=== PATIENT | male | born 1950 | race Caucasian/White ===

== ENCOUNTER 2017-12-19 20:32 | Emergency (ER) | payer MEDICARE ==
--- NOTE | 2017-12-19 20:58 | Emergency Department Record ---
History of Present Illness - General Chief Complaint: Fall Injury Stated Complaint: INJURY TO LEFT HAND Time Seen by Provider: 12/19/17 20:53 Source: Patient Mode of Arrival: Ambulatory Limitations: No limitations - History of Present Illness Initial Comments: 67 yo male presents to ED for evaluation of injury to the left hand 4 days ago. Patient reports pain and swelling to the hand, reduced ROM of the fingers due to pain. Patient denies other injury on examination. Patient reports that he has morphine pump and oxycodone for his pain symptoms. MD Complaint: Fall Onset/Timin -: Days(s) Fall From: Down stairs (#) When Fall Occurred: # Days MEDICAL TRANSCRIPTION RADIOLOGY Fall Witnessed: No Place Fall Occurred: Home Loss of Consciousness: None Prolonged Down Time?: No Symptoms Prior to Fall: None Location - Extremities: Left: Hand Severity: Moderate Severity scale (1-10): 6 Quality: Aching Associated Symptoms: Denies - Ivan Coma Scale Eye Response: (4) Open spontaneously Motor Response: (6) Obeys commands Verbal Response: (5) Oriented Ivan Total: 15 - Related Data Home Medications Medication Instructions Recorded Confirmed Last Taken Amitriptyline HCl [Elavil] 100 mg PO QHS 12/19/17 12/19/17 Unknown Aspirin Chewable 81 mg PO QHS 12/19/17 12/19/17 Unknown Atorvastatin Calcium [Lipitor] 40 mg PO QHS 12/19/17 12/19/17 Unknown Cyclobenzaprine HCl [Flexeril] 10 mg PO TID 12/19/17 12/19/17 Unknown Digoxin [Lanoxin] 125 mcg PO QHS 12/19/17 12/19/17 Unknown Furosemide [Lasix] 40 mg PO DAILY 12/19/17 12/19/17 Unknown Lisinopril 20 mg PO QHS 12/19/17 12/19/17 Unknown Metoprolol Succinate [Toprol Xl] 100 mg PO QHS 12/19/17 12/19/17 Unknown Spironolactone [Aldactone] 25 mg PO QHS 12/19/17 12/19/17 Unknown Allergies Allergy/AdvReac Type Severity Reaction Status Date / Time No Known Drug Allergies Allergy Verified 08/01/14 17:45 Travel Screening - Travel/Exposure Within Last 30 Days Have you traveled within the last 30 days?: No - Travel Symptoms Symptom Screening: None Review of Systems Constitutional: Denies: Chills, Fever, Malaise, Night sweats Eyes: Denies: Eye discharge, Eye pain ENT: Denies: Congestion, Ear pain, Epistaxis Respiratory: Denies: Cough, Dyspnea Cardiovascular: Denies: Chest pain, Dyspnea on exertion Endocrine: Denies: Fatigue, Heat or cold intolerance Gastrointestinal: Denies: Abdominal pain, Nausea, Vomiting Genitourinary: Denies: Incontinence, Retention Musculoskeletal: Reports: Arthralgia (left hand). Denies: Back pain, Gout, Joint swelling Skin: Denies: Bruising, Change in color Neurological: Denies: Abnormal gait, Confusion, Headache, Seizure Psychiatric: Denies: Anxiety Hematological/Lymphatic: Denies: Anemia, Blood Clots Past Medical History - SOCIAL HISTORY Smoking Status: Current every day smoker - RESPIRATORY Hx Respiratory Disorders: Yes Hx Bronchitis: Yes Hx COPD: Yes Hx Dyspnea: Yes Hx Sleep Apnea: Yes - CARDIOVASCULAR Hx Cardio Disorders: Yes Hx CHF: Yes Hx Hypertension: Yes Comment:: high cholesterol - NEURO Hx Neuro Disorders: No - GI Hx GI Disorders: Yes Comment:: constipation-pain medication related - Hx Genitourinary Disorders: No - ENDOCRINE Hx Endocrine Disorders: No Hx Diabetes: No Hx Thyroid Disease: No - MUSCULOSKELETAL Hx Musculoskeletal Disorders: Yes Hx Arthritis: Yes - PSYCH Hx Psych Problems: Yes Hx Anxiety: Yes Hx Depression: Yes - HEMATOLOGY/ONCOLOGY Hx Hematology/Oncology Disorders: Yes Hx Blood Disorders: Yes Family Medical History Any Significant Family History?: Yes Hx Alcohol Use: Mother Hx Diabetes: Father Physical Exam - General General Appearance: Alert, Oriented x3 - Head Head exam: Atraumatic, Normocephalic, Normal inspection Head exam detail: negative: Abrasion, Contusion, Law's sign, General tenderness, Hematoma, Laceration - Eye Eye exam: Normal appearance. negative: Conjunctival injection, Periorbital swelling, Periorbital tenderness, Scleral icterus - ENT Ear exam: negative: Auricular hematoma, Auricular trauma Nasal Exam: negative: Active bleeding, Discharge, Dried blood, Foreign body Mouth exam: negative: Drooling, Laceration, Muffled voice, Tongue elevation - Neck Neck exam: Normal inspection. negative: Meningismus, Tenderness - Respiratory Respiratory exam: Decreased breath sounds. negative: Rales, Respiratory distress, Rhonchi, Stridor - Cardiovascular Cardiovascular Exam: Regular rate, Normal rhythm, Normal heart sounds - GI/Abdominal GI/Abdominal exam: Soft. negative: Rebound, Rigid, Tenderness - Rectal Rectal exam: Deferred - exam: Deferred - Extremities Extremities exam: Tenderness, Other (TTP and STS over the left hand dorsally, limited extension of the 4th/5th digits due to pain/swelling). negative: Calf tenderness, Pedal edema - Back Back exam: Denies: CVA tenderness (R), CVA tenderness (L) - Neurological Neurological exam: Alert, Normal gait, Oriented X3 - Psychiatric Psychiatric exam: Normal affect, Normal mood - Skin Skin exam: Normal color. negative: Abrasion Type of lesion: negative: abrasion Course Vital Signs 12/19/17 20:46 Temperature 99.2 F Pulse Rate [ 103 H Pulse Ox Probe] Respiratory 16 Rate Blood Pressure 130/70 [Left Arm] Pulse Ox 92 L - Reevaluation(s) Reevaluation #1: 12/19/17 21:14 Left hand: Comminuted, non-displaced fracture of the proximal phalanx of the 5th digit Patient was updated on all results, will refer to Dr. Clayton for further evaluation. Disposition Disposition: Discharge Clinical Impression: Proximal phalanx fracture of finger Qualifiers: Encounter type: initial encounter Finger: ring finger Fracture type: closed Fracture alignment: nondisplaced Laterality: left Qualified Code(s): S62.645A - Nondisplaced fracture of proximal phalanx of left ring finger, initial encounter for closed fracture Disposition: Home, Self-Care Condition: (2) Stable Instructions: Finger Fracture (ED) Additional Instructions: Return to ED if your symptoms worsen or if you have any concerns. Follow-up with Dr. Clayton in 3-5 days as directed. Referrals: SARAH CLAYTON [DOCTOR OF OSTEOPATH] - [facility] [Provider Group] Forms: Patient Portal Access Time of Disposition: 21:18 Quality - Quality Measures Quality Measures: N/A - Blood Pressure Screening Does Patient Have Any of the Following: No Blood Pressure Classification: Normal BP Reading Systolic Measurement: 112 Diastolic Measurement: 66 Screening for High Blood Pressure: < Normal BP, F/U Not Required > [G8783]
--- NOTE | 2017-12-20 11:03 | RADIOLOGY REPORT ---
EXAM: LEFT HAND HISTORY: INJURY. TECHNIQUE: Three views of the left hand were performed. FINDINGS: There is a nondisplaced comminuted fracture deformity of the fifth proximal phalanx. The remainder of the osseous structures are intact. IMPRESSION: COMMINUTED NONDISPLACED FRACTURE DEFORMITY OF THE FIFTH PROXIMAL PHALANX. JOB NUMBER: [id number] MTDD
== END 2017-12-19 21:41 | disposition home or self-care (01) ==
LOC: ER 20:32
DX: S62.645A Nondisplaced fracture of proximal phalanx of left ring finger, initial encounter for closed fracture (principal); I10 Essential (primary) hypertension; J44.9 Chronic obstructive pulmonary disease, unspecified; W10.9XXA Fall (on) (from) unspecified stairs and steps, initial encounter; F17.210 Nicotine dependence, cigarettes, uncomplicated; Y92.009 Unspecified place in unspecified non-institutional (private) residence as the place of occurrence of the external cause
CPT/HCPCS: 99283

== ENCOUNTER 2018-04-26 02:02 | Emergency (ER) | payer MEDICARE ==
--- NOTE | 2018-04-26 02:29 | Emergency Department Record ---
History of Present Illness - General Chief Complaint: Wound, check Stated Complaint: POST OP PAIN Time Seen by Provider: 04/26/18 02:11 Source: Patient Mode of arrival: Ambulatory Limitations: No limitations - History of Present Illness Initial Comments: 68 yo male presents to ED for evaluation of post-operative pain symptoms following replacement of a pain pump approximately 8 hours ago. Patient reports that he has been taking Oxycodone 20 mg 1 hours ago, however he reports that he takes these "all the time and they are not helping". Patient denies fevers, chills, or recent illness following his pain pump replacement. Patient reports that his abdomen is too painful to wear his abdominal binder. Patient reports that his pain symptoms are severe "because I spent so much time in the car, we got lost, and the roads are terrible". Patient did not call his surgeon regarding his pain symptoms. MD Complaint: Wound re-check Onset/Timin -: Days(s) Returns Today for: Persistent/worsening pain related to initial visit, Wound recheck Symptoms Since Prior Visit: No new symptoms Associated Symptoms: None Treatments Prior to Arrival: Other - Related Data Previous Rx's Medication Instructions Recorded Cephalexin [Keflex] 500 mg PO TID #21 cap 04/26/18 Allergies Allergy/AdvReac Type Severity Reaction Status Date / Time No Known Drug Allergies Allergy Verified 08/01/14 17:45 Travel Screening - Travel/Exposure Within Last 30 Days Have you traveled within the last 30 days?: No - Travel/Exposure Within Last Year Have you traveled outside the [place] in the last year?: No - Additonal Travel Details Have you been exposed to anyone with a communicable illness?: No - Travel Symptoms Symptom Screening: None Review of Systems Constitutional: Denies: Chills, Fever, Malaise, Night sweats Eyes: Denies: Eye discharge, Eye pain ENT: Denies: Congestion, Ear pain, Epistaxis Respiratory: Denies: Cough, Dyspnea Cardiovascular: Denies: Chest pain, Dyspnea on exertion Endocrine: Denies: Fatigue, Heat or cold intolerance Gastrointestinal: Reports: Abdominal pain (Post-op pain to the left lower quadrant on examination). Denies: Nausea, Vomiting Genitourinary: Denies: Incontinence, Retention Musculoskeletal: Denies: Arthralgia, Back pain, Gout, Joint swelling Skin: Denies: Bruising, Change in color Neurological: Denies: Abnormal gait, Confusion, Headache, Seizure Psychiatric: Denies: Anxiety Hematological/Lymphatic: Denies: Anemia, Blood Clots Past Medical History - SOCIAL HISTORY Smoking Status: Current every day smoker Alcohol Use: None Drug Use: None - RESPIRATORY Hx Respiratory Disorders: Yes Hx Bronchitis: Yes Hx COPD: Yes Hx Dyspnea: Yes Hx Sleep Apnea: Yes - CARDIOVASCULAR Hx Cardio Disorders: Yes Hx CHF: Yes Hx Hypertension: Yes Comment:: high cholesterol - NEURO Hx Neuro Disorders: No - GI Hx GI Disorders: Yes Comment:: constipation-pain medication related - Hx Genitourinary Disorders: No - ENDOCRINE Hx Endocrine Disorders: No Hx Diabetes: No Hx Thyroid Disease: No - MUSCULOSKELETAL Hx Musculoskeletal Disorders: Yes Hx Arthritis: Yes - PSYCH Hx Psych Problems: Yes Hx Anxiety: Yes Hx Depression: Yes - HEMATOLOGY/ONCOLOGY Hx Hematology/Oncology Disorders: Yes Hx Blood Disorders: Yes Family Medical History Any Significant Family History?: No Hx Alcohol Use: Mother Hx Diabetes: Father Physical Exam - General General Appearance: Alert, Oriented x3, Cooperative, Moderate distress (due to his pain symptoms) Limitations: No limitations - Head Head exam: Atraumatic, Normocephalic, Normal inspection Head exam detail: negative: Abrasion, Contusion, Law's sign, General tenderness, Hematoma, Laceration - Eye Eye exam: Normal appearance. negative: Conjunctival injection, Periorbital swelling, Periorbital tenderness, Scleral icterus - ENT Ear exam: negative: Auricular hematoma, Auricular trauma Nasal Exam: negative: Active bleeding, Discharge, Dried blood, Foreign body Mouth exam: negative: Drooling, Laceration, Muffled voice, Tongue elevation - Neck Neck exam: Normal inspection. negative: Meningismus, Tenderness - Respiratory Respiratory exam: Normal lung sounds bilaterally. negative: Rales, Respiratory distress, Rhonchi, Stridor - Cardiovascular Cardiovascular Exam: Regular rate, Normal rhythm, Normal heart sounds - GI/Abdominal GI/Abdominal exam: Soft, Tenderness (TTP surrounding his wound site in the LLQ region of the abdomen with very light palpation, no erythema or drainage from the wound site.). negative: Rebound, Rigid - Rectal Rectal exam: Deferred - exam: Deferred - Extremities Extremities exam: negative: Pedal edema, Tenderness - Back Back exam: Denies: CVA tenderness (R), CVA tenderness (L) - Neurological Neurological exam: Alert, Normal gait, Oriented X3 - Psychiatric Psychiatric exam: Normal affect, Normal mood - Skin Skin exam: Normal color. negative: Abrasion Type of lesion: negative: abrasion Course Vital Signs 04/26/18 02:12 Temperature 99.3 F Pulse Rate [ 86 Pulse Ox Probe] Respiratory 20 Rate Blood Pressure 114/60 [Left Arm] Pulse Ox 93 L - Reevaluation(s) Reevaluation #1: 04/26/18 02:28 Patient's on-call pain provider was contacted for further recommendations. 04/26/18 02:34 IV and basic laboratory studies ordered, CT Abdomen and Pelvis ordered for further evaluation of the patient's post-operative site. Analgesia including Toradol and Ofirmev ordered as well. 04/26/18 02:46 Case was discussed with Thais Steiner on-call HOUSEKEEPING SUPERVISOR, reports that the patient underwent a revision of his pain pump which are usually well tolerated. She has no further recommendations at this time regarding his sever pain symptoms. Reevaluation #2: 04/26/18 03:19 Laboratory studies were reviewed: WBC 12.5 Hgb 17.8/HCT 54.8 CO2 34 (c/w chronic retainer). UA pending Patient has ambulated to the bathroom to provide urine sample, and is going for imaging at this time. Reevaluation #3: 04/26/18 03:46 UA reviewed: >50 WBCs 3+ Bacteria Rocephin ordered to infuse. Patient is back from CT and reports improvement in his pain symptoms. Reevaluation #4: 04/26/18 04:27 CT Abdomen and Pelvis: S/P cholecystectomy, CBD 1.4 with pneumobilia likely related to prior sphincterotomy procedure LLQ abdominal wall subcutaneous battery pack with marginal gas/edema suggesting recent post-surgical change Bilateral renal cysts. Cardiomegaly Small left pleural effusion Right lower lobe bronchitis with mucus plugging Patient was updated on all results, patient is sleeping comfortably on re- examination and appears stable for discharge at this time. All questions were answered at the time of discharge. Medical Decision Making - Lab Data Result diagrams: 04/26/18 02:35 04/26/18 02:35 Disposition Disposition: Discharge Clinical Impression: Post-operative pain UTI (urinary tract infection) Qualifiers: Urinary tract infection type: acute cystitis Hematuria presence: without hematuria Qualified Code(s): N30.00 - Acute cystitis without hematuria Disposition: Home, Self-Care Condition: (2) Stable Additional Instructions: Return to ED if your symptoms worsen or if you have any concerns. Continue Oxycodone as directed. Keflex as directed. Call Dr. Washington tomorrow morning for further recommendations. Prescriptions: Cephalexin [Keflex] 500 mg PO TID #21 cap Forms: Patient Portal Access Time of Disposition: 04:33 Quality - Quality Measures Quality Measures: N/A - Blood Pressure Screening Does Patient Have Any of the Following: No Blood Pressure Classification: Normal BP Reading Systolic Measurement: 114 Diastolic Measurement: 60 Screening for High Blood Pressure: < Normal BP, F/U Not Required > [G8783]
[2018-04-26] MEDS ORDERED: ACETAMINOPHEN 1,000 MG/100 ML BTL IVPB ONE (02:33)
[2018-04-26] MEDS ORDERED: KETOROLAC 30 MG/ML VIAL IVP ONE (02:33)
[2018-04-26] MEDS ORDERED: 0.9 % SODIUM CHLORIDE 1000ML 1,000 ML IV SCH (02:45)
[2018-04-26 03:01] LABS: BASO % 0.4 % (0-6); HEMATOCRIT 54.8 % (42.0-52.0); HEMOGLOBIN 17.8 gm/dl (14.0-18.0); MEAN CELL VOLUME 101.1 fl (81-97); MEAN CORPUSCULAR HEMOGLOBIN 32.8 pg (27-33); MEAN CORPUSCULAR HGB CONC 32.5 g/dl (32-36); MEAN PLATELET VOLUME 9.9 fl (7.4-10.4); MONO % 6.6 % (0-9); PLATELET COUNT 183 K/uL (130-400); RED BLOOD COUNT 5.42 M/uL (4.40-5.70); WHITE BLOOD COUNT W/O DIFF 12.5 K/uL (4.2-12.2)
[2018-04-26 03:07] LABS: BLOOD UREA NITROGEN 9 mg/dL (8-23); EST GLOMERULAR FILTRATION RATE > 60 mL/min
[2018-04-26 03:08] LABS: TOTAL PROTEIN 6.4 g/dL (6.6-8.7)
[2018-04-26 03:10] LABS: GLUCOSE,RANDOM 135 mg/dL (74-109)
[2018-04-26 03:12] LABS: ALT/SGPT 8 U/L (<41); AST/SGOT 12 U/L (10.0-50.0)
[2018-04-26 03:13] LABS: ALB/GLOB RATIO 1.6 (1.1-1.8); ALBUMIN 3.9 g/dL (4.0-5.0); ALKALINE PHOSPHATASE 119 U/L (40-129)
[2018-04-26 03:27] LABS: URINE APPEARANCE CLEAR; URINE BILIRUBIN NEGATIVE (NEGATIVE); URINE BLOOD NEGATIVE (NEGATIVE); URINE COLOR YELLOW; URINE GLUCOSE (UA) NEGATIVE (NEGATIVE); URINE KETONE NEGATIVE (NEGATIVE); URINE LEUKOCYTE ESTERASE MODERATE (NEGATIVE); URINE NITRITE NEGATIVE (NEGATIVE); URINE PROTEIN NEGATIVE (NEGATIVE)
[2018-04-26 03:34] LABS: URINE EPITHELIAL CELLS NONE SEEN (FEW); URINE RBC NONE SEEN (NONE SEEN); URINE WBC >50 (0-2/hpf)
[2018-04-26 03:35] LABS: URINE BACTERIA 3+
[2018-04-26] MEDS ORDERED: CEFTRIAXONE SODIUM 1 GM in 0.9 % SODIUM CHLORIDE 100ML 100 ML IVPB ONE (03:47)
--- NOTE | 2018-04-27 12:41 | CT SCAN REPORT ---
DATE: 04/26/2018. EXAM: CT OF THE ABDOMEN AND PELVIS. HISTORY: Pain near surgical incision, abdominal swelling. TECHNIQUE: CT of the abdomen and pelvis performed following intravenous contrast administration. A total of 100 mL of Omnipaque 300 contrast used for this examination. COMPARISON: CT of the pelvis dated 08/24/2014. FINDINGS: There is a small left pleural effusion. Smooth bronchial wall thickening and mucus plugging in the right lower lung. Minimal atelectatic change in the left lung base. No hepatic mass. The common bile duct is dilated measuring 1.5 cm, and there is gas in the intra- and extra-hepatic bile ducts consistent with pneumobilia. The gallbladder is surgically absent. No pancreatic mass or inflammatory change. No adrenal lesion. There is no splenic mass. A small accessory spleen is present. There is bilateral renal function. There are bilateral renal cysts. No solid mass or hydronephrosis. There are nonobstructing intrarenal calculi bilaterally, left greater than right. No perinephric mass or fluid collection. There is no aortic aneurysm. No enlarged periaortic lymph nodes. No dilated bowel loops. The appendix is unremarkable. Pneumatosis intestinalis is present in the cecum best identified on axial images 83 through 96 of series 3. No gross bladder abnormality. Subcutaneous battery pack is identified in the anterior left abdominal wall with some marginal gas bubbles. No pelvic mass, abscess, or adenopathy. No free air or free fluid identified. Postoperative changes are seen in the lower lumbar spine. No lytic or blastic bone lesion. IMPRESSION: 1. LEFT LOWER ABDOMINAL WALL SUBCUTANEOUS BATTERY PACK WITH MARGINAL GAS/EDEMA RELATED TO RECENT POSTSURGICAL CHANGES. SMALL CATHETER EXTENDING FROM THE BATTERY PACK INTO THE SPINAL CANAL EXTENDING TO APPROXIMATELY THE T10-T11 LEVEL. 2. STATUS POST CHOLECYSTECTOMY. COMMON BILE DUCT DILATATION AND PNEUMOBILIA LIKELY RELATED TO PREVIOUS SPHINCTEROTOMY. PLEASE CORRELATE CLINICALLY. 3. BILATERAL RENAL CYSTS. 4. NONOBSTRUCTIVE BILATERAL RENAL CALCULI WITH NO URETERAL STONES SEEN. 5. SMALL LEFT PLEURAL EFFUSION. 6. RIGHT LOWER LOBE BRONCHITIS AND MUCUS PLUGGING. 7. MOBILE CECUM DEMONSTRATING PNEUMATOSIS COLI. APPENDIX UNREMARKABLE. JOB NUMBER: [id number] [facility]
== END 2018-04-26 05:02 | disposition home or self-care (01) ==
LOC: ER 02:02
DX: G89.28 Other chronic postprocedural pain (principal); R19.04 Left lower quadrant abdominal swelling, mass and lump; N30.00 Acute cystitis without hematuria; M54.9 Dorsalgia, unspecified; I10 Essential (primary) hypertension; J44.9 Chronic obstructive pulmonary disease, unspecified; F17.210 Nicotine dependence, cigarettes, uncomplicated
CPT/HCPCS: 99284 ×2; 96365; 96366; 96375; 85025; 80053; 81001; 74177; Q9967; J1885; J7030

== ENCOUNTER 2018-04-27 02:36 | Emergency (ER) | payer MEDICARE ==
[2018-04-27] MEDS ORDERED: KETOROLAC 30 MG/ML VIAL IVP ONE (02:48)
[2018-04-27] MEDS ORDERED: ACETAMINOPHEN 1,000 MG/100 ML BTL IVPB ONE (02:48)
--- NOTE | 2018-04-27 02:54 | Emergency Department Record ---
History of Present Illness - General Chief Complaint: Fever Stated Complaint: FEVER Time Seen by Provider: 04/27/18 02:39 Source: Patient Mode of Arrival: Ambulatory Limitations: No limitations - History of Present Illness Initial Comments: 68 yo male presents to ED for evaluation of fever symptoms following replacement of an abdominal subcutaneous pain pump placed approximately 32 hours ago. Patient was seen last night for post-op pain symptoms, was diagnosed with UTI and started on Rocephin. 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 Patient reports mild cough symptoms, denies drainage from his wound site. MD Complaint: Fever Onset/Timin -: Awoke with symptoms Temperature Source: Oral Context: Recent procedure Associated Symptoms: Cough, Myalgias Treatments Prior to Arrival: None - Related Data Previous Rx's Medication Instructions Recorded Cephalexin [Keflex] 500 mg PO TID #21 cap 04/26/18 Allergies Allergy/AdvReac Type Severity Reaction Status Date / Time No Known Drug Allergies Allergy Verified 08/01/14 17:45 Travel Screening - Travel/Exposure Within Last 30 Days Have you traveled within the last 30 days?: No - Travel/Exposure Within Last Year Have you traveled outside the [place] in the last year?: No - Additonal Travel Details Have you been exposed to anyone with a communicable illness?: No - Travel Symptoms Symptom Screening: None Review of Systems Constitutional: Reports: Chills, Fever. Denies: Malaise, Night sweats Eyes: Denies: Eye discharge, Eye pain ENT: Denies: Congestion, Ear pain, Epistaxis Respiratory: Denies: Cough, Dyspnea Cardiovascular: Denies: Chest pain, Dyspnea on exertion Endocrine: Denies: Fatigue, Heat or cold intolerance Gastrointestinal: Denies: Abdominal pain, Nausea, Vomiting Genitourinary: Denies: Incontinence, Retention Musculoskeletal: Denies: Arthralgia, Back pain Skin: Denies: Bruising, Change in color Neurological: Denies: Abnormal gait, Confusion, Headache, Seizure Psychiatric: Denies: Anxiety Hematological/Lymphatic: Denies: Anemia, Blood Clots Past Medical History - SOCIAL HISTORY Smoking Status: Current every day smoker - RESPIRATORY Hx Respiratory Disorders: Yes Hx Bronchitis: Yes Hx COPD: Yes Hx Dyspnea: Yes Hx Sleep Apnea: Yes - CARDIOVASCULAR Hx Cardio Disorders: Yes Hx CHF: Yes Hx Hypertension: Yes Comment:: high cholesterol - NEURO Hx Neuro Disorders: No - GI Hx GI Disorders: Yes Comment:: constipation-pain medication related - Hx Genitourinary Disorders: No - ENDOCRINE Hx Endocrine Disorders: No Hx Diabetes: No Hx Thyroid Disease: No - MUSCULOSKELETAL Hx Musculoskeletal Disorders: Yes Hx Arthritis: Yes - PSYCH Hx Psych Problems: Yes Hx Anxiety: Yes Hx Depression: Yes - HEMATOLOGY/ONCOLOGY Hx Hematology/Oncology Disorders: Yes Hx Blood Disorders: Yes Family Medical History Any Significant Family History?: Yes Hx Alcohol Use: Mother Hx Diabetes: Father Physical Exam - General General Appearance: Alert, Oriented x3, Cooperative, Moderate distress Limitations: No limitations - Head Head exam: Atraumatic, Normocephalic, Normal inspection Head exam detail: negative: Abrasion, Contusion, Law's sign, General tenderness, Hematoma, Laceration - Eye Eye exam: Normal appearance. negative: Conjunctival injection, Periorbital swelling, Periorbital tenderness, Scleral icterus - ENT Ear exam: negative: Auricular hematoma, Auricular trauma Nasal Exam: negative: Active bleeding, Discharge, Dried blood, Foreign body Mouth exam: negative: Drooling, Laceration, Muffled voice, Tongue elevation - Neck Neck exam: Normal inspection. negative: Meningismus, Tenderness - Respiratory Respiratory exam: Respiratory distress (Tachypnic on examination). negative: Rales, Rhonchi, Stridor - Cardiovascular Cardiovascular Exam: Normal rhythm, Normal heart sounds, Tachycardia - GI/Abdominal GI/Abdominal exam: Soft, Tenderness. negative: Rebound, Rigid - Rectal Rectal exam: Deferred - exam: Deferred - Extremities Extremities exam: Normal inspection. negative: Calf tenderness, Pedal edema, Tenderness - Back Back exam: Denies: CVA tenderness (R), CVA tenderness (L) - Neurological Neurological exam: Alert, Normal gait, Oriented X3 - Psychiatric Psychiatric exam: Normal affect, Normal mood - Skin Skin exam: Normal color. negative: Abrasion Type of lesion: negative: abrasion Course Vital Signs 04/27/18 02:46 Temperature 102.2 F H Pulse Rate [ 103 H Pulse Ox Probe] Respiratory 24 Rate Blood Pressure 133/66 [Left Arm] Pulse Ox 91 L - Reevaluation(s) Reevaluation #1: 04/27/18 02:56 Patient was seen and examined, initial labs ordered including blood cultures. Ofirmev and Toradol given for fever symptoms. CT Abdomen and Pelvis performed 8/4/18 was reviewed: S/P cholecystectomy. CBD 1.4 cm with evidence for pneumobilia likely related to previous sphincterotomy procedure. Left lower abdominal wall subcutaneous battery pack with mild gas/edema related to recent post-surgical change. Bilateral renal cysts RLL bronchitis Cardiomegaly with small pleural effusion Mobile cecum measures 9.2 cm in diameter demonstrates pneumoatosis coli. Appendix appears normal. Reevaluation #2: 04/27/18 03:06 Labs/blood cultures obtained Zosyn 4.5 grams and Vancomycin 1 gram ordered to infuse. Reevaluation #3: 04/27/18 03:30 Laboratory studies were reviewed: WBC 14.3 (89% Neutrophils) LA 1.5 CO2 34 Patient is going to radiology for CXR currently. Awaiting call back from the patient's on-call provider for Dr. Washington. Reevaluation #4: 04/27/18 03:45 On-call provider re-paged. Reevaluation #5: 04/27/18 03:55 On-call provider (Thais Selby) returned call, will find out from Dr. Washington to determine which facility the patient should be transferred to. 04/27/18 03:58 CXR: ? retrocardiac infiltrate present 04/27/18 04:10 Vancomycin is infusing, patient and his were updated on all results thus far and the plan for transfer. Repeat Temp is 98.9. 04/27/18 04:26 UA micro resulted: 0-2 WBCs Bacteria: Few Significantly improved from yesterday's UA. Awaiting return call for transfer. 04/27/18 04:52 Call returned from on-call provider, will initiate transfer to [facility]. Case was discussed with one-call provider (Sosa), will attempt to reach Dr. Washington for admitting vs. inpatient provider vs. ER-ER. Vancomycin is almost completed. 04/27/18 05:20 Vancomycin has completed infusing. Patient and his SO updated on the status of pending transfer. Will continue to monitor closely. 04/27/18 05:27 [place] [facility] [place] at this time. Medical Decision Making - Lab Data Result diagrams: 04/27/18 03:03 04/27/18 03:03 Critical Care Time Critical Care Time: Yes Total Critical Care Time: 90 Critical Care Time: Diagnosis and treatment for sepsis, broad spectrum antibiotic coverage/IVFs, review of previous records, consultation with the patient's surgical training specialist converter operator and initiation of transfer to surgical hospital. Disposition Disposition: Transfer Clinical Impression: Postoperative fever UTI (urinary tract infection) Qualifiers: Urinary tract infection type: acute cystitis Hematuria presence: without hematuria Qualified Code(s): N30.00 - Acute cystitis without hematuria COPD (chronic obstructive pulmonary disease) Qualifiers: COPD type: unspecified COPD Qualified Code(s): J44.9 - Chronic obstructive pulmonary disease, unspecified Disposition: Acute Care Hospital Transfer Transfer To: [facility] Reason For Transfer: Post-op fever Accepting Physician: Aleksander Time Discussed w/Accepting Physician: 05:32 Condition: (2) Stable Forms: Patient Portal Access Time of Disposition: :32 Quality - Quality Measures Quality Measures: N/A - Blood Pressure Screening Does Patient Have Any of the Following: No Blood Pressure Classification: Pre-Hypertensive BP Reading Systolic Measurement: 137 Diastolic Measurement: 67 Screening for High Blood Pressure: < Pre-Hypertensive BP, F/U Documented > [ G8950] Pre-Hypertensive Follow-up Interventions: Referral to alternative/primary care provider.
[2018-04-27] MEDS ORDERED: 0.9 % SODIUM CHLORIDE 1000ML 1,000 ML IV SCH (03:00)
[2018-04-27] MEDS ORDERED: VANCOMYCIN HCL 1,000 MG in 0.9 % SODIUM CHLORIDE 250ML 250 ML IVPB ONE (03:06)
[2018-04-27] MEDS ORDERED: PIPERACILLIN SODIUM/TAZOBACTAM 4.5 GM in 0.9 % SODIUM CHLORIDE 100ML 100 ML IVPB ONE (03:06)
[2018-04-27 03:12] LABS: BASO % 0.1 % (0-6); EOS % 0.4 % (0-6); HEMATOCRIT 51.5 % (42.0-52.0); HEMOGLOBIN 16.7 gm/dl (14.0-18.0); LYMPH % 7.1 % (16-45); MEAN CORPUSCULAR HEMOGLOBIN 32.7 pg (27-33); MEAN CORPUSCULAR HGB CONC 32.4 g/dl (32-36); MEAN PLATELET VOLUME 10.1 fl (7.4-10.4); MONO % 6.8 % (0-9); PLATELET COUNT 154 K/uL (130-400); RED CELL DISTRIBUTION WIDTH 15.6 % (11.5-14.5); WHITE BLOOD COUNT W/O DIFF 14.3 K/uL (4.2-12.2)
[2018-04-27 03:22] LABS: BLOOD UREA NITROGEN 12 mg/dL (8-23)
[2018-04-27 03:23] LABS: EST GLOMERULAR FILTRATION RATE > 60 mL/min; TOTAL PROTEIN 6.1 g/dL (6.6-8.7)
[2018-04-27 03:25] LABS: GLUCOSE,RANDOM 145 mg/dL (74-109)
[2018-04-27 03:28] LABS: ALB/GLOB RATIO 1.5 (1.1-1.8); ALBUMIN 3.7 g/dL (4.0-5.0); ALKALINE PHOSPHATASE 119 U/L (40-129); ALT/SGPT 7 U/L (<41); AST/SGOT 9 U/L (10.0-50.0)
[2018-04-27 04:12] LABS: URINE APPEARANCE CLEAR; URINE BILIRUBIN NEGATIVE (NEGATIVE); URINE BLOOD NEGATIVE (NEGATIVE); URINE COLOR YELLOW; URINE GLUCOSE (UA) NEGATIVE (NEGATIVE); URINE KETONE NEGATIVE (NEGATIVE); URINE LEUKOCYTE ESTERASE SMALL (NEGATIVE); URINE NITRITE NEGATIVE (NEGATIVE); URINE PROTEIN NEGATIVE (NEGATIVE)
[2018-04-27 04:22] LABS: URINE EPITHELIAL CELLS NONE SEEN (FEW); URINE RBC NONE SEEN (NONE SEEN); URINE WBC 0 - 2 (0-2/hpf)
[2018-04-27 04:23] LABS: URINE BACTERIA FEW
--- NOTE | 2018-04-28 08:46 | RADIOLOGY REPORT ---
EXAM: CHEST HISTORY: FEVER. TECHNIQUE: Two views of the chest were obtained. Comparison: 03/21/17. FINDINGS: The heart is enlarged. There is no mediastinal mass. No acute infiltrate or vascular congestion identified. There is mild blunting of the left costophrenic angle. Small left pleural effusion cannot be excluded. IMPRESSION: 1. CARDIOMEGALY. 2. NO ACUTE INFILTRATE SEEN. 3. MILD BLUNTING OF THE LEFT COSTOPHRENIC ANGLE. THIS COULD REPRESENT A SMALL LEFT PLEURAL EFFUSION. JOB NUMBER: [id number] [facility]
== END 2018-04-27 06:18 | disposition short-term general hospital (02) ==
LOC: ER 02:36
DX: T81.4XXA Infection following a procedure, initial encounter (principal); A41.9 Sepsis, unspecified organism; N30.00 Acute cystitis without hematuria; J44.9 Chronic obstructive pulmonary disease, unspecified; R05 Cough; I11.0 Hypertensive heart disease with heart failure; Z97.8 Presence of other specified devices; F17.210 Nicotine dependence, cigarettes, uncomplicated
CPT/HCPCS: 99291 ×2; 96365; 96366; 96375; 96361; 99292; 83605; 80053; 81001; 85027; 71046; J1885; J3370; J2543; J7030; J7050

== ENCOUNTER 2018-08-10 01:58 | Emergency (ER) | payer MEDICARE ==
[2018-08-10 02:26] LABS: BASO % 0.2 % (0-6); EOS % 0.5 % (0-6); GRAN % 80.6 % (47-80); HEMATOCRIT 57.8 % (42.0-52.0); HEMOGLOBIN 17.9 gm/dl (14.0-18.0); LYMPH % 9.7 % (16-45); MEAN CELL VOLUME 98.3 fl (81-97); MEAN CORPUSCULAR HEMOGLOBIN 30.4 pg (27-33); MEAN PLATELET VOLUME 10.7 fl (7.4-10.4); PLATELET COUNT 185 K/uL (130-400); RED BLOOD COUNT 5.88 M/uL (4.40-5.70); RED CELL DISTRIBUTION WIDTH 15.5 % (11.5-14.5); WHITE BLOOD COUNT W/O DIFF 13.3 K/uL (4.2-12.2)
--- NOTE | 2018-08-10 02:30 | Emergency Department Record ---
History of Present Illness - General Chief complaint: Male Urogenital Problem Stated complaint: GENITAL SWELLING Time Seen by Provider: 08/10/18 02:01 Source: Patient Mode of Arrival: Ambulatory Limitations: No limitations - History of Present Illness Initial comments: 68 yo male presents to ED for evaluation of scrotal swelling and edema that began "several months ago". Patient reports worsening lower extremity edema for the past several days, reports that he has been noncompliant with his Lasix. Patient denies urethral discharge, fevers, chills, or recent illness. Patient also reports increased difficulty in breathing symptoms, reports history of CHF. MD Complaint: Other (Penile edema) Onset/Timin -: Month(s) Location: Left testicle, Right testicle Severity: Moderate Consistency: Constant Improves with: None Worsens with: None - Related Data Sexually active: No Allergies Allergy/AdvReac Type Severity Reaction Status Date / Time No Known Drug Allergies Allergy Verified 08/01/14 17:45 Travel Screening - Travel/Exposure Within Last 30 Days Have you traveled within the last 30 days?: No - Travel Symptoms Symptom Screening: None Review of Systems Constitutional: Denies: Chills, Fever, Malaise, Night sweats Eyes: Denies: Eye discharge, Eye pain ENT: Denies: Congestion, Ear pain Respiratory: Denies: Cough, Dyspnea Cardiovascular: Denies: Chest pain, Dyspnea on exertion Endocrine: Denies: Fatigue, Heat or cold intolerance Gastrointestinal: Denies: Abdominal pain, Nausea, Vomiting Genitourinary: Reports: Other (Scrotal/penile edema). Denies: Incontinence, Retention, Testicular pain, Testicular mass Musculoskeletal: Denies: Arthralgia, Back pain Skin: Denies: Bruising, Change in color Neurological: Denies: Abnormal gait, Confusion, Headache, Seizure Psychiatric: Denies: Anxiety Hematological/Lymphatic: Denies: Anemia, Blood Clots Past Medical History - SOCIAL HISTORY Smoking Status: Current every day smoker Alcohol Use: None Drug Use: None - RESPIRATORY Hx Respiratory Disorders: Yes Hx Bronchitis: Yes Hx COPD: Yes Hx Dyspnea: Yes Hx Sleep Apnea: Yes - CARDIOVASCULAR Hx Cardio Disorders: Yes Hx CHF: Yes Hx Hypertension: Yes Comment:: high cholesterol - NEURO Hx Neuro Disorders: No - GI Hx GI Disorders: Yes Comment:: constipation-pain medication related - Hx Genitourinary Disorders: No - ENDOCRINE Hx Endocrine Disorders: No Hx Diabetes: No Hx Thyroid Disease: No - MUSCULOSKELETAL Hx Musculoskeletal Disorders: Yes Hx Arthritis: Yes - PSYCH Hx Psych Problems: Yes Hx Anxiety: Yes - HEMATOLOGY/ONCOLOGY Hx Hematology/Oncology Disorders: Yes Hx Blood Disorders: Yes Family Medical History Any Significant Family History?: Yes Hx Alcohol Use: Mother Hx Diabetes: Father Physical Exam - General General Appearance: Alert, Oriented x3, Cooperative, Moderate distress, Other ( Patient appears cyanotic on examination) Limitations: No limitations - Head Head exam: Atraumatic, Normocephalic, Normal inspection Head exam detail: negative: Abrasion, Contusion, Law's sign, General tenderness, Hematoma, Laceration - Eye Eye exam: Normal appearance. negative: Conjunctival injection, Periorbital swelling, Periorbital tenderness, Scleral icterus - ENT Ear exam: negative: Auricular hematoma, Auricular trauma Nasal Exam: negative: Active bleeding, Discharge, Dried blood, Foreign body Mouth exam: negative: Drooling, Laceration, Muffled voice, Tongue elevation - Neck Neck exam: Normal inspection. negative: Meningismus, Tenderness - Respiratory Respiratory exam: negative: Rales, Respiratory distress, Rhonchi, Stridor - Cardiovascular Cardiovascular Exam: Normal rhythm, Normal heart sounds, Tachycardia - GI/Abdominal GI/Abdominal exam: Soft. negative: Rebound, Rigid, Tenderness - Rectal Rectal exam: Deferred - exam: Deferred - Extremities Extremities exam: Normal inspection. negative: Calf tenderness, Pedal edema, Tenderness - Back Back exam: Denies: CVA tenderness (R), CVA tenderness (L) - Neurological Neurological exam: Alert, Normal gait, Oriented X3 - Psychiatric Psychiatric exam: Normal affect, Normal mood - Skin Skin exam: Normal color. negative: Abrasion Type of lesion: negative: abrasion Course Vital Signs 08/10/18 02:06 Pulse Rate 128 H Respiratory 24 Rate Blood Pressure 142/79 Pulse Ox 71 L - Reevaluation(s) Reevaluation #1: 08/10/18 02:41 EKG: Sinus tachycardia 104 Normal axis, normal intervals Low voltage anterior leads No acute ST-T wave changes Reevaluation #2: 08/10/18 02:45 Laboratory studies were reviewed: Hgb 17.9 Troponin 0.028 BNP 7017 Labs are otherwise grossly unremarkable for an acute process. CXR: Cardiomegaly Mild pulm vascular congestion Patient and his SO were updated on all results, ASA and Lasix IV was ordered. [facility] call contacted per patient preference for transfer. Reevaluation #3: 08/10/18 03:25 Case was discussed with Dr. Baum ([facility] attending), will accept transfer for admission and cardiology consultation. Medical Decision Making - Lab Data Result diagrams: 08/10/18 02:20 08/10/18 02:20 Lab Results 08/10/18 08/10/18 Range/Units 02:12 02:21 Troponin T Cancelled Digoxin Cancelled Disposition Disposition: Transfer Clinical Impression: Hypoxia, Elevated troponin I level, Polycythemia Acute CHF (congestive heart failure) Qualifiers: Heart failure type: unspecified Qualified Code(s): I50.9 - Heart failure, unspecified Disposition: Acute Care Hospital Transfer Transfer To: [facility] Reason For Transfer: Cardiology consultation, CHF, elevated troponin Accepting Physician: Sarika Time Discussed w/Accepting Physician: 03:26 Condition: (2) Stable Forms: Patient Portal Access Time of Disposition: 03:26 Quality - Quality Measures Quality Measures: N/A - Blood Pressure Screening Does Patient Have Any of the Following: No Blood Pressure Classification: Hypertensive Reading Systolic Measurement: 142 Diastolic Measurement: 79 Screening for High Blood Pressure: < First Hypertensive BP, F/U Documented > [ G8950] First Hypertensive Follow-up Interventions: Referral to alternative/primary care provider.
[2018-08-10 02:36] LABS: BLOOD UREA NITROGEN 21 mg/dL (8-23); CREATININE 1.3 mg/dL (0.7-1.2); EST GLOMERULAR FILTRATION RATE 59 mL/min; TOTAL PROTEIN 6.3 g/dL (6.6-8.7)
[2018-08-10 02:38] LABS: GLUCOSE,RANDOM 128 mg/dL (74-109)
[2018-08-10 02:41] LABS: ALB/GLOB RATIO 1.4 (1.1-1.8); ALBUMIN 3.7 g/dL (4.0-5.0); ALKALINE PHOSPHATASE 130 U/L (40-129); ALT/SGPT 16 U/L (<41); AST/SGOT 17 U/L (10.0-50.0)
[2018-08-10 02:42] LABS: DIGOXIN < 0.3 ng/mL (0.8-2.0)
[2018-08-10] MEDS ORDERED: FUROSEMIDE IV 40MG/4ML VIAL IVP ONE (03:08)
[2018-08-10] MEDS ORDERED: ASPIRIN 81 MG CHEWABLE TABLET PO ONE (03:08)
--- NOTE | 2018-08-11 12:47 | RADIOLOGY REPORT ---
EXAM: CHEST, TWO VIEWS HISTORY: NONPRODUCTIVE COUGH. TECHNIQUE: Two views of the chest were obtained. Comparison: 04/27/18. FINDINGS: The cardiomediastinal silhouette is mildly enlarged though stable. Mild left basilar atelectasis or developing infiltrate. There is mild blunting of both lateral CP angles which could relate to scarring or a small amount of pleural fluid. IMPRESSION: 1. SIMILAR CARDIOMEGALY. 2. INTERVAL DEVELOPMENT OF MILD LEFT BASILAR ATELECTASIS OR DEVELOPING INFILTRATE. 3. SMALL PLEURAL EFFUSIONS OR PLEURAL PARENCHYMAL SCARRING. JOB NUMBER: [id number] [facility]
== END 2018-08-10 05:07 | disposition short-term general hospital (02) ==
LOC: ER 01:58
DX: I50.9 Heart failure, unspecified (principal); R09.02 Hypoxemia; R79.89 Other specified abnormal findings of blood chemistry; D75.1 Secondary polycythemia; I10 Essential (primary) hypertension; J44.9 Chronic obstructive pulmonary disease, unspecified; F17.210 Nicotine dependence, cigarettes, uncomplicated
CPT/HCPCS: 71046; 80053; 80162; 83880; 84484; 85025; 96374; 99285; J1940

== ENCOUNTER 2018-11-12 15:03 | Emergency (ER) | payer MEDICARE ==
--- NOTE | 2018-11-12 15:22 | Emergency Department Record ---
History of Present Illness - General Chief complaint: Edema Stated complaint: RT HAND SWELLING/PAIN Time Seen by Provider: 11/12/18 15:11 Source: Patient Mode of Arrival: Ambulatory Limitations: No limitations - History of Present Illness Initial comments: The patient is here due to a one day hx of R hand and wrist swelling and pain. He denies any fall or trauma or injury. The patient states the wrist and hand just began swelling last evening and today it is worse. He has had no bites to the area and no fever. MD Complaint: Extremity pain, Extremity swelling Onset/Timin -: Days(s) Location: Right, Hand - Related Data Previous Rx's Medication Instructions Recorded Prednisone [Prednisone 20Mg] 40 mg PO DAILY #10 tab 11/12/18 Allergies Allergy/AdvReac Type Severity Reaction Status Date / Time No Known Drug Allergies Allergy Verified 11/12/18 15:16 Travel Screening - Travel/Exposure Within Last 30 Days Have you traveled within the last 30 days?: No - Travel/Exposure Within Last Year Have you traveled outside the [place] in the last year?: No - Additonal Travel Details Have you been exposed to anyone with a communicable illness?: No - Travel Symptoms Symptom Screening: None Review of Systems Constitutional: Denies: Chills, Fever Eyes: Denies: Eye discharge ENT: Denies: Congestion Respiratory: Denies: Cough, Dyspnea Past Medical History - SOCIAL HISTORY Smoking Status: Current every day smoker Alcohol Use: None Drug Use: None - RESPIRATORY Hx Respiratory Disorders: Yes Hx Bronchitis: Yes Hx COPD: Yes Hx Dyspnea: Yes Hx Sleep Apnea: Yes - CARDIOVASCULAR Hx Cardio Disorders: Yes Hx CHF: Yes Hx Hypertension: Yes Comment:: high cholesterol - NEURO Hx Neuro Disorders: No - GI Hx GI Disorders: Yes Comment:: constipation-pain medication related - Hx Genitourinary Disorders: No - ENDOCRINE Hx Endocrine Disorders: No Hx Diabetes: No Hx Thyroid Disease: No - MUSCULOSKELETAL Hx Musculoskeletal Disorders: Yes Hx Arthritis: Yes - PSYCH Hx Psych Problems: Yes Hx Anxiety: Yes - HEMATOLOGY/ONCOLOGY Hx Hematology/Oncology Disorders: Yes Hx Blood Disorders: Yes Family Medical History Any Significant Family History?: No Hx Alcohol Use: Mother Hx Diabetes: Father Physical Exam - General General Appearance: Alert, Oriented x3, Cooperative, No acute distress - Head Head exam: Atraumatic, Normocephalic - Eye Eye exam: Normal appearance, PERRL - GI/Abdominal GI/Abdominal exam: Soft, Normal bowel sounds. negative: Tenderness - Extremities Extremities exam: Normal capillary refill, Tenderness. negative: Normal inspection (There is mild swelling and tenderness to the dorsal R wrist and hand and mild swelling to the fingers. There is no warmth or erythema present.) , Full ROM (There is decreased full ROM due to pain but the patient does have a good R hand grasp. ), Joint swelling, Pedal edema - Back Back exam: Reports: Normal inspection - Neurological Neurological exam: Alert, Oriented X3. negative: Motor sensory deficit Course Vital Signs 11/12/18 15:06 Temperature 99.0 F Pulse Rate 89 Respiratory 16 Rate Blood Pressure 125/83 Pulse Ox 91 L - Reevaluation(s) Reevaluation #1: I did discuss the plan with the patient. 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 We will start him on oral steroids and will splint the extremity. He is to see his PCP in 1-2 days for recheck and to return to the ER for any worsening symptoms. 11/12/18 16:13 Medical Decision Making - Data Complexity MDM Data: Labs Ordered and/or Reviewed, X-Ray Ordered and/or Reviewed - Lab Data Result diagrams: 11/12/18 15:27 11/12/18 15:27 - Radiology Data Radiology results: Report reviewed (R Wrist: soft tissue swelling, O/W neg.) Disposition Disposition: Discharge Clinical Impression: Wrist joint inflamed Disposition: Home, Self-Care Condition: (2) Stable Instructions: Tendinitis (ED) Additional Instructions: Please ice and elevate the R wrist for the next 3 days and take Tylenol along with the Prednisone for pain. Please see your family doctor in 1-2 days for recheck. Return to the ER for any worsening pain, swelling, or any fever or redness. Prescriptions: Prednisone [Prednisone 20Mg] 40 mg PO DAILY #10 tab Forms: Patient Portal Access Time of Disposition: 16:16 Quality - Quality Measures Quality Measures: N/A - Blood Pressure Screening View Details: Yes Does Patient Have Any of the Following: No Blood Pressure Classification: Pre-Hypertensive BP Reading Systolic Measurement: 127 Diastolic Measurement: 80 Screening for High Blood Pressure: < Pre-Hypertensive BP, F/U Documented > [ G8950] Pre-Hypertensive Follow-up Interventions: Referral to alternative/primary care provider.
[2018-11-12 15:39] LABS: BASO % 0.4 % (0-6); EOS % 0.4 % (0-6); GRAN % 72.1 % (47-80); HEMATOCRIT 56.8 % (42.0-52.0); HEMOGLOBIN 17.8 gm/dl (14.0-18.0); LYMPH % 19.4 % (16-45); MEAN CELL VOLUME 98.3 fl (81-97); MEAN CORPUSCULAR HGB CONC 31.3 g/dl (32-36); MEAN PLATELET VOLUME 10.3 fl (7.4-10.4); MONO % 7.7 % (0-9); PLATELET COUNT 134 K/uL (130-400); RED BLOOD COUNT 5.78 M/uL (4.40-5.70); RED CELL DISTRIBUTION WIDTH 18.1 % (11.5-14.5); WHITE BLOOD COUNT W/O DIFF 7.9 K/uL (4.2-12.2)
[2018-11-12 15:41] LABS: MEAN CORPUSCULAR HEMOGLOBIN 30.7 pg (27-33)
[2018-11-12 15:42] LABS: BLOOD UREA NITROGEN 14 mg/dL (8-23); EST GLOMERULAR FILTRATION RATE > 60 mL/min
[2018-11-12 15:44] LABS: GLUCOSE,RANDOM 125 mg/dL (74-109)
[2018-11-12 15:47] LABS: C-REACTIVE PROTEIN 1.76 mg/dL (<0.5)
[2018-11-12] MEDS ORDERED: PREDNISONE 20 MG TAB PO ONE (16:00)
[2018-11-12 16:22] LABS: ERYTHROCYTE SEDIMENTATION RATE 1 mm/hr (0-20)
--- NOTE | 2018-11-15 19:08 | RADIOLOGY REPORT ---
EXAM: WRIST, RIGHT 3 VIEWS HISTORY: WRIST SWELLING, NO KNOWN INJURY. TECHNIQUE: Three views of the right wrist. FINDINGS: Generalized wrist soft tissue swelling. No acute fracture is seen. Carpal bone alignment appears maintained. Punctate 1 mm calcific density near the radioulnar joint on oblique view, may be degenerative. Additional scattered minor degenerative changes in the wrist. IMPRESSION: 1. NONSPECIFIC SOFT TISSUE SWELLING THROUGHOUT THE WRIST. 2. NO ACUTE OSSEOUS FINDINGS. JOB NUMBER: [id number] [facility]
== END 2018-11-12 16:26 | disposition home or self-care (01) ==
LOC: ER 15:03
DX: M13.831 Other specified arthritis, right wrist (principal); J44.9 Chronic obstructive pulmonary disease, unspecified; I50.9 Heart failure, unspecified; I10 Essential (primary) hypertension; F17.210 Nicotine dependence, cigarettes, uncomplicated
CPT/HCPCS: 29125; 99283; 99284; 85025; 85651; 86140; 80048; 73110; J7512

== ENCOUNTER 2018-11-25 00:46 | Emergency (ER) | payer MEDICARE ==
[2018-11-25] MEDS ORDERED: ACETAMINOPHEN 1,000 MG/100 ML BTL IVPB ONE (00:58)
--- NOTE | 2018-11-25 01:04 | Emergency Department Record ---
History of Present Illness - General Chief Complaint: Fall Injury Stated Complaint: FALL Time Seen by Provider: 11/25/18 00:50 Source: Patient Mode of Arrival: EMS Limitations: No limitations - History of Present Illness Initial Comments: 68 yo male presents by EMS for back pain. He reports just before 8pm he fell getting out of his car after a drive from [employer]. He denies a head injury. He has chronic back and neck pain. He has prior neck surgery and has a morphine pump for pain control. He states his has chronic pain from the neck to the legs. He states he does not feel like he has new pain but all his pains are worse. He has COPD. He does not use his home oxygen normally because he states he is not short of breath. He continues to smoke 2PPD. No syncope, chest pain, or blood thinners. He gave himself a bolus with his morphine pump and took 2 flexeril. He has had several falls and been off balance the last month. He states this is new aspect of his health. He denies the feeling of being unstable in the past until the last month. He reports he is to have MRI' s of his spine at [facility] but may require sedation due to his bad spine and the need to hold still for a prolonged period of time. MD Complaint: Fall -: Hour(s) (5 hours ago just before 8pm) When Fall Occurred: 4-6 hours [employer] Fall Witnessed: Yes, by family Place Fall Occurred: Home Loss of Consciousness: None Prolonged Down Time?: No Symptoms Prior to Fall: None Location: Neck, Back Location - Extremities: Right: Shoulder Severity: Moderate Quality: Aching Context: History of frequent falls (Over the last month more unstable) Associated Symptoms: Neck pain (chronic) - Ivan Coma Scale Eye Response: (4) Open spontaneously Motor Response: (6) Obeys commands Verbal Response: (5) Oriented [place] Total: 15 - Related Data Allergies Allergy/AdvReac Type Severity Reaction Status Date / Time No Known Drug Allergies Allergy Verified 11/25/18 00:51 Review of Systems Constitutional: Denies: Chills, Fever, Malaise, Weakness Eyes: Denies: Eye discharge ENT: Denies: Congestion, Throat pain Respiratory: Denies: Cough, Dyspnea, Hemoptysis, Stridor, Wheezes Cardiovascular: Denies: Chest pain, Palpitations, Syncope Endocrine: Denies: Fatigue, Polydipsia, Polyuria Gastrointestinal: Denies: Abdominal pain, Diarrhea, Nausea, Vomiting Genitourinary: Denies: Dysuria, Frequency, Hematuria Musculoskeletal: Reports: Arthralgia, Back pain, Neck pain Skin: Denies: Bruising, Change in color, Rash Neurological: Reports: Tingling (chronic in the legs), Weakness. Denies: Headache Psychiatric: Denies: Anxiety Hematological/Lymphatic: Denies: Easy bleeding, Easy bruising Past Medical History - SOCIAL HISTORY Smoking Status: Current every day smoker Drug Use: None - RESPIRATORY Hx Respiratory Disorders: Yes Hx Bronchitis: Yes Hx COPD: Yes Hx Dyspnea: Yes Hx Sleep Apnea: Yes - CARDIOVASCULAR Hx Cardio Disorders: Yes Hx CHF: Yes Hx Hypertension: Yes Comment:: high cholesterol - NEURO Hx Neuro Disorders: No - GI Hx GI Disorders: Yes Comment:: constipation-pain medication related - Hx Genitourinary Disorders: No - ENDOCRINE Hx Endocrine Disorders: No Hx Diabetes: No Hx Thyroid Disease: No - MUSCULOSKELETAL Hx Musculoskeletal Disorders: Yes Hx Arthritis: Yes - PSYCH Hx Psych Problems: Yes Hx Anxiety: Yes - HEMATOLOGY/ONCOLOGY Hx Hematology/Oncology Disorders: Yes Hx Blood Disorders: Yes Family Medical History Hx Alcohol Use: Mother Hx Diabetes: Father Physical Exam - General General Appearance: Alert, Oriented x3, Cooperative, No acute distress Limitations: No limitations - Head Head exam: Atraumatic, Normocephalic, Normal inspection Head exam detail: negative: Abrasion, Contusion, Hematoma, Laceration - Eye Eye exam: PERRL. negative: Normal appearance, Conjunctival injection - ENT ENT exam: Normal exam, Mucous membranes moist Ear exam: Normal external inspection Nasal Exam: Normal inspection Mouth exam: Normal external inspection Teeth exam: Normal inspection Throat exam: Normal inspection - Neck Neck exam: Normal inspection, Full ROM, Tenderness - Respiratory Respiratory exam: Decreased breath sounds, Wheezes. negative: Accessory muscle use, Respiratory distress - Cardiovascular Cardiovascular Exam: Regular rate, Normal rhythm, Normal heart sounds Peripheral Pulses: 2+: Radial (R), Radial (L) - GI/Abdominal GI/Abdominal exam: Soft. negative: Tenderness - Rectal Rectal exam: Deferred - exam: Deferred - Extremities Extremities exam: Normal inspection, Normal capillary refill, Pedal edema ( bilateral legs), Tenderness (Mild tenderness right anterior shoulder) - Back Back exam: Reports: Normal inspection, Paraspinal tenderness, Tenderness, Vertebral tenderness, Other (He is normal with inspection, mild tenderness, he states tenderness is in his normal places). Denies: CVA tenderness (R), CVA tenderness (L), Muscle spasm - Neurological Neurological exam: Alert, Oriented X3. negative: Altered, Motor sensory deficit - Psychiatric Psychiatric exam: Normal affect, Normal mood. negative: Anxious - Skin Skin exam: Dry, Intact, Normal color, Warm Course Vital Signs 11/25/18 00:53 Temperature 98.7 F Pulse Rate [ 97 H Pulse Ox Probe] Respiratory 24 Rate Blood Pressure 119/83 [Left Arm] Pulse Ox 83 L - Reevaluation(s) Reevaluation #1: He states his is supposed to be on home oxygen but normally does not wear it because he is not short of breath On 2 liters he is 92-94%. He is on 2 Liters at home when he decides to use the oxygen. Mild wheezy. No dyspnea or with increase work of breathing. He states he feels "normal" for him. He continues to smoke 2 packs per day. 11/25/18 01:06 11/25/18 03:18 HCT reviewed. Recommendation repeat due to exclusion of the anterior aspect of the frontal lobes and skull. 3mm of isodense fluid collection in the subdural space left frontal and left parietal. This does not appear to demonstrate acute hemorrhage. No intra axial hemorrhage. No shift. The patient is aware and agrees. 11/25/18 03:22 11/25/18 03:[address] is negative for acute process. 11/25/18 03:35 The shoulder XR is negative for acute process or injury. 11/25/18 04:[address] was attempted. The patient is uncomfortable with positioning on the CT table and refused additional attempts at completing the scan. The limitations of the initial scan were discussed with the patient at length. He understands the limitations but refuses to make additional attempts. The CT of the chest was reviewed. Moderate degenerative changes and osseous fusion along the margins of the T spine. No fractures. The CT of the abdomen and pelvis was reviewed. No acute process or injury noted. Prior Laminectomy noted. Significant degenerative changes noted. Hip OA. 11/25/18 04:22 NO comparisons of the fluid on prior CT scans 03/05/19 04:23 Given the subdural fluid and inadequate CT scan I recommend transfer to [facility] for further evaluation 11/25/18 04:34 I discussed the findings with the Dr Limon of Trauma and Dr Hutson of ED. The patient is accepted for transfer for further work up of the limited findings of the CT scan Medical Decision Making - Lab Data Result diagrams: 11/25/18 01:05 11/25/18 01:05 Disposition Disposition: Transfer Clinical Impression: Acute exacerbation of chronic low back pain, Fall, COPD (chronic obstructive pulmonary disease), Subdural fluid collection Disposition: Acute Care Hospital Transfer [facility] To: [facility] Reason For Transfer: Possible subdural hemorrhage Accepting Physician: Caryl (ED) sAhly (Trauma) Time Discussed w/Accepting Physician: 04:35 Condition: (2) Stable Forms: Patient Portal Access Time of Disposition: 04:25 Quality - Quality Measures Quality Measures: N/A - Blood Pressure Screening Does Patient Have Any of the Following: No Blood Pressure Classification: Normal BP Reading Systolic Measurement: 109 Diastolic Measurement: 63 Screening for High Blood Pressure: < Normal BP, F/U Not Required > [G8783] Pre-Hypertensive Follow-up Interventions: Referral to alternative/primary care provider.
[2018-11-25] MEDS ORDERED: IPRATROPIUM/ALBUTEROL (0.5MG/3MG) NEB INH ONE (01:05)
[2018-11-25 01:14] LABS: BASO % 0.1 % (0-6); EOS % 0.1 % (0-6); HEMOGLOBIN 19.5 gm/dl (14.0-18.0); LYMPH % 6.4 % (16-45); MEAN CORPUSCULAR HGB CONC 31.6 g/dl (32-36); MEAN PLATELET VOLUME 10.7 fl (7.4-10.4); MONO % 7.9 % (0-9); PLATELET COUNT 130 K/uL (130-400); RED BLOOD COUNT 6.24 M/uL (4.40-5.70); WHITE BLOOD COUNT W/O DIFF 16.8 K/uL (4.2-12.2)
[2018-11-25 01:17] LABS: MEAN CORPUSCULAR HEMOGLOBIN 31.2 pg (27-33)
[2018-11-25 01:18] LABS: HEMATOCRIT 61.8 % (42.0-52.0)
[2018-11-25 01:34] LABS: ANISOCYTOSIS 1+; PLATELET ESTIMATE NORMAL (NORMAL)
[2018-11-25 01:41] LABS: INR 1.3; PARTIAL THROMBOPLASTIN TIME 28.1 SECONDS (24.5-39.1); PROTHROMBIN TIME (PATIENT) 12.7 SECONDS (9.5-12.1)
[2018-11-25 01:45] LABS: BLOOD UREA NITROGEN 11 mg/dL (8-23)
[2018-11-25 01:46] LABS: EST GLOMERULAR FILTRATION RATE > 60 mL/min
[2018-11-25 01:48] LABS: GLUCOSE,RANDOM 149 mg/dL (74-109)
--- NOTE | 2018-11-27 06:05 | RADIOLOGY REPORT ---
EXAM: RIGHT SHOULDER HISTORY: FALL, PAIN. TECHNIQUE: Three views of the right shoulder were obtained. Comparison: None. FINDINGS: Mild arthritic changes in the right acromioclavicular joint. No fracture or dislocation. No destructive or erosive change. IMPRESSION: 1. MILD ARTHRITIC CHANGES IN THE RIGHT ACROMIOCLAVICULAR JOINT. 2. NO ACUTE PROCESS. JOB NUMBER: [id number] [facility]
--- NOTE | 2018-11-27 06:35 | CT SCAN REPORT ---
EXAM: HEAD CT HISTORY: HEAD TRAUMA. TECHNIQUE: Noncontrast head CT was obtained. Comparison: None. FINDINGS: The exam is compromised. There has been exclusion of the frontal skull and anterior aspect of the frontal lobes from the field of view, There is a small isodense left subdural hematoma. This has a maximum thickness of approximately 5 mm. There is no midline shift or ventricular effacement. No intracranial hemorrhage. No visualized fracture or acute osseous abnormality. No CT evidence for large acute territorial infarct. IMPRESSION: 1. EXAM IS COMPROMISED BY EXCLUSION OF THE ANTERIOR FRONTAL LOBES AND ANTERIOR SKULL. 2. SMALL ISODENSE SUBDURAL HEMATOMA IN THE LEFT FRONTAL AND LEFT PARIETAL LOBE WITH A MAXIMUM THICKNESS OF ABOUT 5 MM. THIS MAY BE SUBACUTE RATHER THAN ACUTE. MRI WOULD BE OF BENEFIT FOR FURTHER ASSESSMENT. 3. ATROPHY. JOB NUMBER: [id number] [facility]
--- NOTE | 2018-11-27 06:52 | CT SCAN REPORT ---
EXAM: CT OF THE ABDOMEN AND PELVIS HISTORY: ABDOMINAL PAIN, FALL. TECHNIQUE: CT of the abdomen and pelvis was performed without intravenous or oral contrast. Comparison: 04/26/18. FINDINGS: There is pneumobilia similar to the patient's previous examination. The liver is otherwise unremarkable with no hepatic mass. The spleen is unremarkable. A small amount of gas is identified without the gallbladder which appears to be still present. Pneumobilia and gallbladder gas may be iatrogenic due to prior sphincterotomy. Please correlate clinically. The common bile duct within the pancreatic head is of normal caliber. The common hepatic duct is mildly dilated 1.4 cm in size similar to the previous examination. There is no pancreatic mass identified. There are bilateral nonobstructing intrarenal calculi and there are bilateral renal cysts which are unchanged. There is no adrenal lesion. There is no aortic aneurysm. No periaortic mass or adenopathy. There are no dilated bowel loops. An electronic control pack overlies the anterior pelvis in the soft tissues. Arthritic changes are seen in the lumbar spine and sacroiliac joints. Postoperative changes in the lumbar spine are similar to the previous study. IMPRESSION: 1. NO ACUTE ABDOMINAL OR PELVIC PROCESS. 2. THERE IS PNEUMOBILIA AND SOME GAS IS SEEN WITHIN THE GALLBLADDER. MOST LIKELY THESE ARE IATROGENIC DUE TO PREVIOUS SPHINCTEROTOMY. 3. NONOBSTRUCTING INTRARENAL CALCULI BILATERALLY AND SMALL BILATERAL RENAL CYSTS. 4. POSTOPERATIVE AND ARTHRITIC CHANGES IN THE LUMBAR SPINE. 5. PLEASE SEE ABOVE FOR FULL DISCUSSION. JOB NUMBER: [id number] [facility]
--- NOTE | 2018-11-27 06:58 | CT SCAN REPORT ---
EXAM: CT OF THE THORAX HISTORY: CHEST PAIN, FELL, INJURY. TECHNIQUE: Noncontrast CT of the thorax was performed. Comparison: None. FINDINGS: The thyroid appears enlarged. No mediastinal hematoma. No aortic aneurysm. The heart is enlarged. There is an ICD/pacemaker present. There are nonspecific mediastinal lymph nodes. A lymph node in the AP window region measures 2.2 x 1.4 cm in size. Lymph node in the precarinal pretracheal region measures 1.8 x 1.5 cm. There are emphysematous changes. There is no pneumothorax. There is no lung consolidation. No lung mass or nodule identified. There is no pleural or pericardial effusion. There are arthritic changes diffusely in the thoracic spine. There is no fracture or acute osseous abnormality identified. IMPRESSION: 1. NO ACUTE THORACIC PROCESS IDENTIFIED. 2. CARDIOMEGALY. THERE IS AN ICD/PACEMAKER PRESENT. 3. MILDLY ENLARGED, BUT NONSPECIFIC MEDIASTINAL LYMPH NODES. 4. THYROMEGALY. THIS COULD BE FURTHER ASSESSED WITH ULTRASOUND. 5. THERE ARE EMPHYSEMATOUS CHANGES. 6. NOT MENTIONED ABOVE THERE IS BILATERAL GYNECOMASTIA . 7. PLEASE SEE ABOVE FOR FULL DISCUSSION. JOB NUMBER: [id number] [facility]
--- NOTE | 2018-11-27 07:11 | CT SCAN REPORT ---
EXAM: CT OF THE CERVICAL SPINE HISTORY: FALL. TECHNIQUE: CT of the cervical spine was performed without intravenous contrast. Comparison: None. FINDINGS: No fracture or acute osseous abnormality. Post surgical changes are present in the cervical spine at the C4-C5 level and the C6-C7 level. Orthopedic fixation hardware appears intact. Disk space narrowing present throughout the cervical spine. Multilevel uncovertebral spurring present. No destructive or erosive change. Multilevel facet degenerative changes are present. No soft tissue mass or soft tissue swelling. IMPRESSION: 1. NO FRACTURE OR ACUTE OSSEOUS ABNORMALITY. 2. POST SURGICAL CHANGES ARE PRESENT. 3. MULTILEVEL DEGENERATIVE CHANGES. JOB NUMBER: [id number] [facility]
== END 2018-11-25 05:05 | disposition short-term general hospital (02) ==
LOC: ER 00:46
DX: G89.11 Acute pain due to trauma (principal); M54.5 Low back pain; M54.2 Cervicalgia; G89.29 Other chronic pain; R94.02 Abnormal brain scan; R60.0 Localized edema; J44.9 Chronic obstructive pulmonary disease, unspecified; I10 Essential (primary) hypertension; F17.210 Nicotine dependence, cigarettes, uncomplicated; Z99.81 Dependence on supplemental oxygen; Z91.81 History of falling; W01.0XXA Fall on same level from slipping, tripping and stumbling without subsequent striking against object, initial encounter; Y92.008 Other place in unspecified non-institutional (private) residence as the place of occurrence of the external cause
CPT/HCPCS: 70450; 71250; 72125; 74176; 80048; 85027; 85610; 85730; 94640; 96365; 99285

== ENCOUNTER 2018-11-28 12:23 | Inpatient (IN) | payer MEDICARE ==
[2018-11-28] MEDS: OXYCODONE/APAP 7.5MG/325MG TABLET PO PRN ×2 (13:36→21:52)
--- NOTE | 2018-11-28 14:58 | Rehab Evaluation ---
Patient Information - Patient Information Diagnosis: deconditioning d/t subdural hematoma Ordered Treatment: OT Evaluate and Treat Status: Initial Evaluation Surgery: No Past Medical/Surgical Hx: PAST MEDICAL/SURGICAL HISTORY Past Surgical History back x 2 in lower back and 2 in upper back pain pump in spinal cord PMH - Respiratory Hx Respiratory Disorders Yes Hx Bronchitis Yes Hx Chronic Obstructive Yes Pulmonary Disease (COPD) Hx Dyspnea Yes Hx Sleep Apnea Yes PMH - Cardiovascular Hx Cardiovascular Disorders Yes Hx Congestive Heart Failure Yes Hx Hypertension Yes Comment: high cholesterol PMH - Neuro Hx Neurological Disorders No PMH - GI Hx Gastrointestinal Disorders Yes Comment: constipation-pain medication related PMH - Hx Genitourinary Disorders No PMH - Endocrine Hx Endocrine Disorders No Hx Diabetes No Hx Thyroid Disease No PMH - Musculoskeletal Hx Musculoskeletal Disorders Yes Hx Arthritis Yes PMH - Psych Hx Psychiatric Problems Yes Hx Anxiety Yes Hx Depression Yes PMH - Hematology/Oncology Hx Hematology/Oncology Yes 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 His bedroom and bathroom are on the main level. He has 5 steps and 1 railing at the entrance. He has a tub/shower combination, no grab bar or seat and a standard height toilet, no grab bar. He is Ind with all meal prep, laundry and home mgmt tasks. He ambulated without an assistive device. He has a walker and straight cane.) Social History: Detail (Pt has a supportive daughter who is here from [place] for a week.) Precautions: [place], Fall, Other (No lifting greater than 5#) - Time With Patient Total Time Spent With Patient (Min): 40 Treatment Procedures: Detail (OT eval low complexity) Subjective Information - Subjective Information Per Patient Objective Data - Pain Pain Present: Yes (6-7/10 pain in neck, low back and right shoulder. He reports back and neck pain are longstanding, right shoulder pain is from the fall.) - Mental Status Patient Orientation: Oriented x3 - Visual Perception Appears within normal limits for therapeutic activities - ROM Not within normal limits ([place] shoulder flexion limited to approx. 110 degrees, [place] elbow, wrist and hand AROM WNL) - Strength/Tone Within normal limits ([place] UE strength 4+/5 within AROM limitations.) - Coordination Appears within normal limits for therapeutic activities - Transfers Independent (Ind with sit to stand from chair height.) - Balance Balance Sitting: Good Balance Standing: Fair (Pt able to static stand at sink with mild unsteadiness.) - Sensation Intact - Gait Detail (Pt ambulated in room with 2 wheeled walker and SBA using 5 liters of oxygen.) - ADL's/IADL's Detail (Pt able to doff flannel shirt and complete washing face and combing hair at sink with CG assist while standing using 5 liters of oxygen. Pt had oxygen sats in the high 80s with activity but no significant shortness of breath.) Therapy Assessment - Therapy Assessment Detail (Pt presents with decreased Ind with self cares, functional mobility and endurance needed for safe and Ind ADLs/IADLs.) Problem List - Problem List Occupational Therapy Problem List: Detail (1. Need to further assess showering. 2. Need to further assess total body dressing. 3. Impaired endurance and functional mobility needed for safe and Ind ADLs/IADLs.) Goals - Goals Occupational Therapy Goals: 1. Pt will be Ind with total body dressing using modified breathing techniques. 2. Pt will be Ind with showering in standing using energy conservation techniques. 3. Pt will be Ind with all functional mobility needed for safe and Ind ADLs/IADLs 4. Pt will demonstrate improved endurance needed for safe and Ind ADLs/IADLs. Prognosis - Prognosis Good Plan - Plan Occupational Therapy Plan: OT 2-4 days per week to address goals as above.
--- NOTE | 2018-11-28 15:21 | Rehab Evaluation ---
Patient Information - Patient Information Diagnosis: deconditioning d/t subdural hematoma Ordered Treatment: PT Evaluate and Treat Status: Initial Evaluation Surgery: No Past Medical/Surgical Hx: PAST MEDICAL/SURGICAL HISTORY Past Surgical History back x 2 in lower back and 2 in upper back pain pump in spinal cord PMH - Respiratory Hx Respiratory Disorders Yes Hx Bronchitis Yes Hx Chronic Obstructive Yes Pulmonary Disease (COPD) Hx Dyspnea Yes Hx Sleep Apnea Yes PMH - Cardiovascular Hx Cardiovascular Disorders Yes Hx Congestive Heart Failure Yes Hx Hypertension Yes Comment: high cholesterol PMH - Neuro Hx Neurological Disorders No PMH - GI Hx Gastrointestinal Disorders Yes Comment: constipation-pain medication related PMH - Hx Genitourinary Disorders No PMH - Endocrine Hx Endocrine Disorders No Hx Diabetes No Hx Thyroid Disease No PMH - Musculoskeletal Hx Musculoskeletal Disorders Yes Hx Arthritis Yes PMH - Psych Hx Psychiatric Problems Yes Hx Anxiety Yes Hx Depression Yes PMH - Hematology/Oncology Hx Hematology/Oncology Yes 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 His bedroom and bathroom are on the main level. He has 5 steps and 1 railing at the entrance. He has a tub/shower combination, no grab bar or seat and a standard height toilet, no grab bar. He is Ind with all meal prep, laundry and home mgmt tasks. He ambulated without an assistive device. He has a walker and straight cane.) Social History: Detail (Pt has a supportive daughter who is here from [place] for a week.) Precautions: [place], Fall, Other (No lifting greater than 5#) - Time With Patient Total Time Spent With Patient (Min): 30 Treatment Procedures: Detail (Initial Evaluation) Subjective Information - Subjective Information Per Patient (The patient had complaints of lower back pain. Level 6 to 7 at the highest. The patient also had complaints of R shoulder pain ( from recent fall) . The patient did not rate shoulder pain using 0-10 pain scale.) Objective Data - Mental Status Patient Orientation: Oriented x3 - Visual Perception Appears within normal limits for therapeutic activities - Strength/Tone Within normal limits (The patient's LE AROM was WFL.) - Transfers Independent (The patient was independent with sit to and from stand transfer.) - Balance Balance Sitting: Good Balance Standing: Good (The patient was able to stand with wide base of support and wash his face and comb his hair. The patient exhibited unsteadiness when ambulating without device. The patient 's balance was not evaluated using Objective balance test.) - Sensation Deficit (Diminished sensation to light touch from toes to medial malleoli bilaterally.) - Gait Detail (The patient ambulated with wheeled walker 7.5 feet x 2 with 5L of O2 with supervision for safety only and ambulated without device 20 feet x 1 with CG, supervision for safety. O2 sat. levels remained in 84-88. The patient's gait pattern is charecterized by increased neck and back flexion, wide base of support and decreased heel to toe weight shift.) Therapy Assessment - Therapy Assessment Detail (The patient exhibits decreased standing balance and decreased ability to complete prolonged physical activity. Feel the patient is a good candidate for short term subacute rehab.) Problem List - Problem List Physical Therapy Problem List: Detail (1) Decreased balance in standing 2) Decreased ability to complete prolonged physical activity 3) Decreased O2 sat levels with ambulation and ADL's.) Occupational Therapy Problem List: Detail (1. Need to further assess showering. 2. Need to further assess total body dressing. 3. Impaired endurance and functional mobility needed for safe and Ind ADLs/IADLs.) Goals - Goals Physical Therapy Goals: 1)The patient will ambulate on stairs with supervision for safety. 2) The patient will ambulate with appropriate assistive device 75- 100 feet independently. 3) The patient will tolerate 25 minutes of physical activity with one to two rest periods. 4) Evaluate patient's balance with use of Objective balance scale. Occupational Therapy Goals: 1. Pt will be Ind with total body dressing using modified breathing techniques. 2. Pt will be Ind with showering in standing using energy conservation techniques. 3. Pt will be Ind with all functional mobility needed for safe and Ind ADLs/IADLs 4. Pt will demonstrate improved endurance needed for safe and Ind ADLs/IADLs. Prognosis - Prognosis Moderate Plan - Plan Physical Therapy Plan: PT M-F 1-2 times a day for gait training and balance exercises. Occupational Therapy Plan: OT 2-4 days per week to address goals as above.
--- NOTE | 2018-11-28 20:41 | History & Physical ---
History of Present Illness - Date Date of Service for History & Physical: 11/29/18 - History of Present Illness Admitting Diagnosis: deconditioning due to subdural hematoma History of Present Illness: Tara Varela is a 68 y/o male admitted to the swing bed program for deconditioning s/p hospitalization at [facility] 11/25/18-11/28/18 after sustaining a left sided SDH after a fall from slipping on ice 11/25/18. Past medical history includes dilated cardiomyopathy, constipation, polycythema, chronic systolic heart failure (EF 20-25%), chronic pain, C4-5,6-7 fusion, L4-/sacral fusion, COPD (oxygen dependent but refuses to use), malnutrition, frequent falls, current every day smoker- 2 PPD. While at [facility] SDH on repeat head CT 11/26/18 was found to be stable, no mass effect. Labs 11/27/18: WBC normal, Hgb 16.8, BMP normal. Hospitalization was uneventful. Of note, he required 4-6L O2 with ambulation. 11/29/18: sitting in chair, comfortable, kyphotic with forward posturing he reports as chronic due to cervical fusions. He reports he lives alone unless his long-time girlfriend Sandi is in town from [place] and functions independently, including driving. Is is a current 2 PPD cigarette smoker. He is aware he is supposed to use home O2 for his COPD but does not as he appreciates the dangers of smoking and oxygen use. Denies headache, visual disturbance, nausea, chest pain, shortness of breath. He is complaining of increased low back pain since fall with intermittent right upper leg tingling that improves with walking and pain medication (this is a chronic occurrence for him). PCP: Dr Maria Isabel Saucedo[facility]- Dr Wayne Fontenot- [place] [employer]- Renaldo Santana Neurosurgeon- Dr Beebe General - Cognitive Patterns Speech: Normal Thought Process: Intact Thought Content: Normal Orientation: Oriented x3 Brief Interview for Mental Status Score: 14 - Communication Preferred Language?: Filipino Health Actuary Required: No Level of Education: College Preferred Method of Learning: Seeing, Doing, Reading Comprehension Ability: No Impairment Able to Read: Yes Able to Write: Yes Select best description of speech pattern: Clear Speech Ability to express ideas and wants: Understood Understanding verbal content: Understands - Mood and Behavior Patterns Appearance: Well Groomed Mood: Normal Attitude: Cooperative Motor Activity: Calm Affect: Appropriate Hallucinations: Denies - Psychosocial Well-Being Usual Living Arrangement: Alone Living Arrangement Comment: has female visitor Relationship Status: Life Partner Current and Past Employment History: Retired Sikh: None Yarsani: none Verbalizes Interest in Activities During Stay: No Specify Interests: likes watching tv. playing bridge Personality: Extroverted States they do not want to participate in group activities: Yes Patient Involved in the Community: No Patient Drives: Yes Patients Leisure Activities Prior to Admission: has one cat named Abisai - Physical Functioning Activity Level: Up with assist x1 Turning: Self ad madyson Assistive Devices: Walker Ambulation Ability: Independent Bed Mobility: Independent Transfer Ability: Needs Assist Bathing Ability: Independent Personal Hygiene: Needs Assist Dressing Ability: Independent Eating (Feeding) Ability: Independent Toileting Ability: Independent Administer Own Medication: Independent - Continence Bowel Pattern: Constipated Bladder Pattern: Normal - Dental Status Unable to examine: No Broken or loosely fitting full or partial dentures: No No natural teeth or tooth fragment(s) (edentulous): Yes Abnormal mouth tissue (ulcers, masses, oral lesions, etc.): No Obvious or likely cavity or broken natural teeth: No Inflamed or bleeding gums or loose natural teeth: No Mouth/facial pain, discomfort or difficulty chewing: Yes - Nutrition Screening Poor oral intake > 1 week: No Unplanned weight loss in specified time frame: No Nutrition Support via tube feedings or parenteral nutrition: No Pressure Ulcer: No Significantly underweight define as BMI <18.5 kg/m2: No Albumin <2.5mg/dL: No Persistent nausea/vomiting/diarrhea >3 days: No Difficulty chewing/swallowing/mouth sores: No Admitting Diagnosis: Yes Nutrition Risk Score: Low Risk Review of Systems Constitutional: Reports: As per HPI. Denies: Chills, Fever, Malaise, Night sweats, Weakness, Weight change Eyes: Reports: As per HPI. Denies: Eye discharge, Eye pain, Photophobia, Vision change ENT: Reports: As per HPI. Denies: Congestion, Dental pain, Ear pain, Epistaxis , Hearing loss, Throat pain Respiratory: Reports: As per HPI. Denies: Cough, Dyspnea, Hemoptysis, Stridor, Wheezes Cardiovascular: Reports: As per HPI. Denies: Arrhythmia, Chest pain, Dyspnea on exertion, Edema, Murmurs, Orthopnea, Palpitations, Paroxysmal nocturnal dyspnea, Rheumatic Fever, Syncope Endocrine: Reports: Fatigue Gastrointestinal: Reports: As per HPI. Denies: Abdominal pain, Constipation, Diarrhea, Hematemesis, Hematochezia, Melena, Nausea, Vomiting Genitourinary: Reports: As per HPI. Denies: Dysuria, Frequency, Hematuria, Incontinence, Retention, Testicular pain, Testicular mass, Urgency Musculoskeletal: Reports: Back pain Skin: Reports: As per HPI. Denies: Bruising, Change in color, Change in hair/ nails, Lesions, Pruritus, Rash Neurological: Reports: As per HPI. Denies: Abnormal gait, Confusion, Headache, Numbness, Paresthesias, Seizure, Tingling, Tremors, Vertigo, Weakness Psychiatric: Reports: As per HPI. Denies: Anxiety, Auditory hallucinations, Depression, Homicidal thoughts, Suicidal thoughts, Visual hallucinations Hematological/Lymphatic: Reports: As per HPI. Denies: Anemia, Blood Clots, Easy bleeding, Easy bruising, Swollen glands Past Medical History - SOCIAL HISTORY Smoking Status: Current every day smoker Alcohol Use: None Drug use: None - SURGICAL HISTORY Past Surgical History: back x 2 in lower back and 2 in upper back. pain pump in spinal cord - RESPIRATORY Hx Respiratory Disorders: Yes Hx Bronchitis: Yes Hx COPD: Yes Hx Dyspnea: Yes Hx Sleep Apnea: Yes - CARDIOVASCULAR Hx Cardio Disorders: Yes Hx CHF: Yes Hx Hypertension: Yes Comment:: high cholesterol - NEURO Hx Neuro Disorders: No - GI Hx GI Disorders: Yes Comment:: constipation-pain medication related - Hx Genitourinary Disorders: No - ENDOCRINE Hx Endocrine Disorders: No Hx Diabetes: No Hx Thyroid Disease: No - MUSCULOSKELETAL Hx Musculoskeletal Disorders: Yes Hx Arthritis: Yes - PSYCH Hx Psych Problems: Yes Hx Anxiety: Yes - HEMATOLOGY/ONCOLOGY Hx Hematology/Oncology Disorders: Yes Hx Blood Disorders: Yes Family Medical History Any Significant Family History?: Yes Hx Alcohol Use: Mother Hx Diabetes: Father H&P Meds/Allergies - Allergies Allergies: Allergies Allergy/AdvReac Type Severity Reaction Status Date / Time No Known Drug Allergies Allergy Verified 11/25/18 00:51 - Home Medications Home Medications Medication Instructions Recorded Confirmed Last Taken Metoprolol Succinate 50 mg PO DAILY 11/28/18 11/28/18 Unknown Oxycodone HCl 5 - 20 mg PO Q6H PRN 11/28/18 11/28/18 Unknown Spironolactone 25 mg PO DAILY 11/28/18 11/28/18 Unknown - Active Medications Active Medications: Current Medications Amitriptyline HCl (Elavil) 100 mg PO QHS [facility] Aspirin (Ecotrin (Ec)) 81 mg PO DAILY [facility] Atorvastatin Calcium (Lipitor) 40 mg PO QHS [facility] Metoprolol Succinate (Toprol Xl) 50 mg PO DAILY [facility] Nicotine (Nicotine 21mg) 1 patch TD DAILY [facility] Oxycodone/Acetaminophen (Percocet 7.5-325 Mg Tablet) 1 each PO Q4H PRN PRN Reason: PAIN - MODERATE (5-7) Stop: 12/05/18 13:02 Oxycodone/Acetaminophen (Percocet 7.5-325 Mg Tablet) 2 each PO Q4H PRN PRN Reason: PAIN - SEVERE (8-10) Stop: 12/05/18 13:02 Last Admin: 11/28/18 13:36 Dose: 2 each Spironolactone (Aldactone) 25 mg PO DAILY [facility] Physical Exam - Vital Signs Vital Signs: Vital Signs - Last 24 Hrs Temp Pulse Pulse Resp BP Pulse Ox 11/28/18 14:00 88 18 88 L 11/28/18 13:15 89 16 95 11/28/18 12:25 98.0 F 84 20 125/72 94 L - General General Appearance: Alert, Oriented x3, Cooperative, No acute distress - Head Head exam: Normal inspection - Eye Eye exam: Normal appearance, PERRL, EOMI Pupils: Normal accommodation - ENT ENT exam: Mucous membranes moist - Neck Neck exam: Other (chronic forward flexion, decreased ROM) - Respiratory Respiratory exam: Decreased breath sounds, Rhonchi (bases bilat) - Cardiovascular Cardiovascular Exam: Regular rate, Normal rhythm Peripheral Pulses: 0: Dorsalis Pedis (R) (severe peripheral vascular changes to skin. Pulses only palpable as trace to none), Dorsalis Pedis (L) (severe peripheral vascular changes to skin. Pulses only palpable as trace to none) - GI/Abdominal GI/Abdominal exam: Soft, Normal bowel sounds. negative: Tenderness - Extremities Extremities exam: Pedal edema (2+pitting edema bilat. Trace-none pedal pulses. BLE skin hyperkeratotic, casey, toes casey and cool. Sensation intact). negative: Normal capillary refill - Back Back exam: Reports: Paraspinal tenderness (lumbar, kyposis) - Neurological Neurological exam: Alert, Normal gait, Oriented X3, Reflexes normal - Psychiatric Psychiatric exam: Normal affect, Normal mood - Skin Skin exam: Normal color H&P Results - Labs Result Diagrams: 11/29/18 06:25 Discharge Potential - Discharge Needs Community Services Used Prior to Admission: None Patient Discharge Plan Description: Return Home Community Services Needed at Discharge: None Plan - Swing Bed Certification Initial Certification Due: 11/28/18 14 Day Re-Cert Due: 12/12/18 44 Day Re-Cert Due: 01/11/19 74 Day Re-Cert Due: 02/10/19 - Detailed Diagnosis and Plan (1) Physical deconditioning Current Visit: Yes Status: Acute Base Code: R53.81 - OTHER MALAISE Comment : 11/29/18 - PT/OT - Goal is to return home to idependent functioning - Chronic illness and significant cardiac disease may hinder progress - Advise home PT/OT at discharge (2) Malnutrition Current Visit: Yes Status: Acute Base Code: E46 - UNSPECIFIED PROTEIN- CALORIE MALNUTRITION Comment: 11/29/18 - Protein 6.0, albumin 2.7 - Increase protein - Dietary consult (3) CHF (congestive heart failure) Current Visit: Yes Status: Acute Base Code: I50.9 - HEART FAILURE, UNSPECIFIED Comment: 11/29/18 - EF 20-25% (echo not available for review) - Toprol XL 50mg daily - Spironalactone 25mg QD - EC ASA 81mg (4) COPD (chronic obstructive pulmonary disease) Current Visit: Yes Status: Acute Base Code: J44.9 - CHRONIC OBSTRUCTIVE PULMONARY DISEASE, UNSPECIFIED Comment: 11/29/18 - O2 4-6L to keep SPO2 88-92% - Required 6L O2 to keep SPO2 89% during ambulation, using 3L at rest - Has home O2 but declines to use - Hx 2 PPD current every day smoker- Nicotine patch 21mg QD (5) PVD (peripheral vascular disease) Current Visit: Yes Status: Acute Base Code: I73.9 - PERIPHERAL VASCULAR DISEASE, UNSPECIFIED Comment: 11/29/18 - Chronic and severe, cool and casey toes and feet, sensation intact, pedal pulses trace to absent bilat - He reports he has discussed this with customer service administrator and is not a candidate for intervention - Continues to smoke 2 PPD - Elevated blood sugars incidentally found on CMP, no known hx of DM, will check A1C (6) DVT prophylaxis Current Visit: Yes Status: Acute Base Code: [id number] - Comment: 11/29/18 - PT/OT - Nursing to encourage frequent ambulation - EC ASA 81mg daily (7) Full code status Current Visit: Yes Status: Acute Base Code: Z78.9 - OTHER SPECIFIED HEALTH STATUS Comment: 11/29/18
[2018-11-28] MEDS: AMITRIPTYLINE 25 MG TABLET PO SCH (21:49)
[2018-11-28] MEDS: ATORVASTATIN 20 MG TABLET PO SCH (21:50)
[2018-11-29] MEDS ORDERED: DOCUSATE SODIUM 100 MG CAPSULE PO PRN (00:07)
[2018-11-29] MEDS: MAGNESIUM HYDROXIDE 30 ML UDC PO PRN ×2 (00:17→15:49)
[2018-11-29] MEDS: OXYCODONE/APAP 7.5MG/325MG TABLET PO PRN ×3 (00:20→23:00)
[2018-11-29] MEDS: DIPHENHYDRAMINE HCL 25 MG CAPSULE PO SCH ×2 (00:39→22:58)
[2018-11-29 06:58] LABS: ALB/GLOB RATIO 1.1 (1.1-1.8); ALBUMIN 3.2 g/dL (4.0-5.0); ALKALINE PHOSPHATASE 106 U/L (40-129); ALT/SGPT 10 U/L (<41); AST/SGOT 8 U/L (10.0-50.0); BLOOD UREA NITROGEN 17 mg/dL (8-23); CREATININE 0.8 mg/dL (0.7-1.2); EST GLOMERULAR FILTRATION RATE > 60 mL/min; GLUCOSE,RANDOM 140 mg/dL (74-109)
[2018-11-29] MEDS: METOPROLOL SUCC 50 MG TABLET PO SCH (09:53)
[2018-11-29] MEDS: SPIRONOLACTONE 25 MG TAB PO SCH (09:53)
[2018-11-29] MEDS: NICOTINE 21 MG/24 HOUR PATCH TD SCH (09:53)
--- NOTE | 2018-11-29 11:57 | Physical Therapy Tx Note ---
Physical Therapy Tx Note - Treatment Note Tolerated: Fair Total Time Spent With Patient: 15 Physical Therapy Tx Note: Detail ( The patient was up in chair when PT arrived and had complaints of lower back pain.The patient ambulated with front wheeled walker with supervision for safety with initially 3 liters of O2, increased to 4 L a distance of 120 feet x 1. Patient's O2 sat. level remained 88 to 83. Per Respiratory Therapist the patient's O2 was increased to 4 L at rest when patient returned to room. The patient was left in chair with call light within reach.) Physical Therapy Problem List: Detail (1) Decreased balance in standing 2) Decreased ability to complete prolonged physical activity 3) Decreased O2 sat levels with ambulation and ADL's.) Physical Therapy Goals: 1)The patient will ambulate on stairs with supervision for safety. 2) The patient will ambulate with appropriate assistive device 75- 100 feet independently. 3) The patient will tolerate 25 minutes of physical activity with one to two rest periods. 4) Evaluate patient's balance with use of Objective balance scale. Physical Therapy Plan: PT M-F 1-2 times a day for gait training and balance exercises.
[2018-11-29] MEDS: SENNOSIDES/DOCUSATE SODIUM UD CAPSULE PO SCH ×2 (18:53→22:59)
[2018-11-29] MEDS: ATORVASTATIN 20 MG TABLET PO SCH (22:59)
[2018-11-29] MEDS: AMITRIPTYLINE 25 MG TABLET PO SCH (23:01)
[2018-11-29] MEDS: DOCUSATE SODIUM 100 MG CAPSULE PO SCH (23:01)
[2018-11-30] MEDS: SPIRONOLACTONE 25 MG TAB PO SCH (09:56)
[2018-11-30] MEDS: NICOTINE 21 MG/24 HOUR PATCH TD SCH (09:56)
[2018-11-30] MEDS: METOPROLOL SUCC 50 MG TABLET PO SCH (09:56)
[2018-11-30] MEDS: SENNOSIDES/DOCUSATE SODIUM UD CAPSULE PO SCH ×2 (09:58→21:35)
[2018-11-30] MEDS: DOCUSATE SODIUM 100 MG CAPSULE PO SCH ×2 (09:59→21:36)
[2018-11-30] MEDS: DIPHENHYDRAMINE HCL 25 MG CAPSULE PO SCH (21:34)
[2018-11-30] MEDS: OXYCODONE/APAP 7.5MG/325MG TABLET PO PRN (21:36)
[2018-11-30] MEDS: AMITRIPTYLINE 25 MG TABLET PO SCH (21:37)
[2018-11-30] MEDS: ATORVASTATIN 20 MG TABLET PO SCH (21:37)
[2018-12-01] MEDS: OXYCODONE/APAP 7.5MG/325MG TABLET PO PRN ×3 (07:10→21:56)
[2018-12-01] MEDS: METOPROLOL SUCC 50 MG TABLET PO SCH (09:52)
[2018-12-01] MEDS: SENNOSIDES/DOCUSATE SODIUM UD CAPSULE PO SCH ×2 (09:52→21:56)
[2018-12-01] MEDS: NICOTINE 21 MG/24 HOUR PATCH TD SCH (09:52)
[2018-12-01] MEDS: DOCUSATE SODIUM 100 MG CAPSULE PO SCH ×2 (09:52→21:55)
[2018-12-01] MEDS: SPIRONOLACTONE 25 MG TAB PO SCH (09:52)
--- NOTE | 2018-12-01 11:41 | Occupational Therapy Tx Note ---
Occupational Therapy Tx Note - Treatment Note Tolerated: Good Total Time Spent With Patient: 45 (ADL) Occupational Therapy Treatment Note: Detail (S: Pt up in chair, ready for shower. Pt using 3 liters of oxygen. O: Sit to stand and amb to toilet with 2 wheeled walker and completed toileting Indly. Pt doffed shirt, pants, slip on shoes and underwear Indly in sitting and standing. Pt amb to shower and completed total body shower in sitting and standing using grab bars and hand held shower. Pt dried self Indly. Pt amb to chair and donned t-shirt, underwear, pants, socks and slip on shoes Indly. A: Pt is Ind with total body dressing and showering, no c/o shortness of breath of fatigue) Occupational Therapy Problem List: Detail (1. Need to further assess showering. 2. Need to further assess total body dressing. 3. Impaired endurance and functional mobility needed for safe and Ind ADLs/IADLs.) Occupational Therapy Goals: 1. Pt will be Ind with total body dressing using modified breathing techniques. 2. Pt will be Ind with showering in standing using energy conservation techniques. 3. Pt will be Ind with all functional mobility needed for safe and Ind ADLs/IADLs 4. Pt will demonstrate improved endurance needed for safe and Ind ADLs/IADLs. Prognosis: Good Occupational Therapy Plan: OT 2-4 days per week to address goals as above.
--- NOTE | 2018-12-01 16:13 | Physical Therapy Tx Note ---
Physical Therapy Tx Note - Treatment Note Tolerated: Good Total Time Spent With Patient: 30 Physical Therapy Tx Note: Detail (The patient was up in chair when PT arrived. The patient ambulated independently to bathroom with 2 wheeled walker. The patient ambulated in with 3L of O2 a distance of 108 feet x 1 with standard cane and pushing O2 with supervision for safety. The patient's sat. level remained 88 to 89. The patient's balance was tested using the Tinetti Assessment Tool and was rated as 21/28 which is in the moderate risk for falling category. The patient completed the following LE exercises including hip marching x 5 reps, LAQ, Hip adductor squeezes, resisted hip abduction, ankle pumps all x 15 reps. The patient is progressing well.) Physical Therapy Problem List: Detail (1) Decreased balance in standing 2) Decreased ability to complete prolonged physical activity 3) Decreased O2 sat levels with ambulation and ADL's.) Physical Therapy Goals: 1)The patient will ambulate on stairs with supervision for safety. 2) The patient will ambulate with appropriate assistive device 75- 100 feet independently. 3) The patient will tolerate 25 minutes of physical activity with one to two rest periods.(Goal Met). 4) Evaluate patient's balance with use of Objective balance scale.(Goal Met) Physical Therapy Plan: PT M-F 1-2 times a day for gait training and balance exercises.
[2018-12-01] MEDS: DIPHENHYDRAMINE HCL 25 MG CAPSULE PO SCH (21:54)
[2018-12-01] MEDS: AMITRIPTYLINE 25 MG TABLET PO SCH (21:55)
[2018-12-01] MEDS: ATORVASTATIN 20 MG TABLET PO SCH (21:56)
[2018-12-02] MEDS: OXYCODONE/APAP 7.5MG/325MG TABLET PO PRN ×2 (08:17→21:31)
[2018-12-02] MEDS: SENNOSIDES/DOCUSATE SODIUM UD CAPSULE PO SCH ×2 (10:50→21:31)
[2018-12-02] MEDS: SPIRONOLACTONE 25 MG TAB PO SCH (10:53)
[2018-12-02] MEDS: DOCUSATE SODIUM 100 MG CAPSULE PO SCH ×2 (10:55→21:31)
[2018-12-02] MEDS: METOPROLOL SUCC 50 MG TABLET PO SCH (10:55)
[2018-12-02] MEDS: NICOTINE 21 MG/24 HOUR PATCH TD SCH (10:56)
--- NOTE | 2018-12-02 12:07 | Physical Therapy Tx Note ---
Physical Therapy Tx Note - Treatment Note Tolerated: Good Total Time Spent With Patient: 15 Physical Therapy Tx Note: Detail (The patient was up in chair when PT arrived. The patient ambulated with 3L of O2 a distance of 67 feet with standard cane and pushing O2 independently. The patient ambulated on 3 steps with supervision for safety only with use of railing and cane. O2 sat level dropped to 80 and O2 level was increased to 4L . Patient then ambulated 80 feet. O2 sat level was 88 after ambulating. O2 level was reduced to 3L at rest. Respiratory Therapist was left with patient and monitoring O2 level. Patient has met all PT goals. Patient denied any concerns at home. PT will monitor the patient's O2 level in conjunction with RT.) Physical Therapy Problem List: Detail (1) Decreased balance in standing 2) Decreased ability to complete prolonged physical activity 3) Decreased O2 sat levels with ambulation and ADL's.) Physical Therapy Goals: 1)The patient will ambulate on stairs with supervision for safety (Goal Met). 2) The patient will ambulate with appropriate assistive device 75-100 feet independently. (Goal Met). 3) The patient will tolerate 25 minutes of physical activity with one to two rest periods.(Goal Met). 4) Evaluate patient's balance with use of Objective balance scale.(Goal Met) Physical Therapy Plan: PT M-F 1-2 times a day for gait training and balance exercises.
[2018-12-02] MEDS: DIPHENHYDRAMINE HCL 25 MG CAPSULE PO SCH (21:29)
[2018-12-02] MEDS: AMITRIPTYLINE 25 MG TABLET PO SCH (21:30)
[2018-12-02] MEDS: ATORVASTATIN 20 MG TABLET PO SCH (21:31)
[2018-12-03] MEDS: OXYCODONE/APAP 7.5MG/325MG TABLET PO PRN ×2 (08:29→19:16)
[2018-12-03] MEDS: NICOTINE 21 MG/24 HOUR PATCH TD SCH (10:46)
[2018-12-03] MEDS: SPIRONOLACTONE 25 MG TAB PO SCH (10:46)
[2018-12-03] MEDS: METOPROLOL SUCC 50 MG TABLET PO SCH (10:47)
[2018-12-03] MEDS: SENNOSIDES/DOCUSATE SODIUM UD CAPSULE PO SCH (10:47)
[2018-12-03] MEDS: DOCUSATE SODIUM 100 MG CAPSULE PO SCH ×3 (10:47→21:33)
--- NOTE | 2018-12-03 16:40 | Physical Therapy Tx Note ---
Physical Therapy Tx Note - Treatment Note Tolerated: Good Total Time Spent With Patient: 15 Physical Therapy Tx Note: Detail (The patient was up in chair when PY arrived. The patient ambulated with standard cane pushing O2 tank independently with 4L of O2 a distance . O2 sat level was 89 122 feet x 2 with rest period. After ambulation the O2 sat level was 91. The patient was returned to room air. The patient stated there was nothing he needed to practice prior to discharge tomorrow. Out patient PT is recommended for balance and to improve O2 sat level through exercise.) Physical Therapy Problem List: Detail (1) Decreased balance in standing 2) Decreased ability to complete prolonged physical activity 3) Decreased O2 sat levels with ambulation and ADL's.) Physical Therapy Goals: 1)The patient will ambulate on stairs with supervision for safety (Goal Met). 2) The patient will ambulate with appropriate assistive device 75-100 feet independently. (Goal Met). 3) The patient will tolerate 25 minutes of physical activity with one to two rest periods.(Goal Met). 4) Evaluate patient's balance with use of Objective balance scale.(Goal Met) Physical Therapy Plan: PT M-F 1-2 times a day for gait training and balance exercises.
[2018-12-03] MEDS: DIPHENHYDRAMINE HCL 25 MG CAPSULE PO SCH (21:32)
[2018-12-03] MEDS: ATORVASTATIN 20 MG TABLET PO SCH (21:34)
[2018-12-03] MEDS: AMITRIPTYLINE 25 MG TABLET PO SCH (21:34)
[2018-12-04] MEDS: OXYCODONE/APAP 7.5MG/325MG TABLET PO PRN ×2 (05:46→10:27)
--- NOTE | 2018-12-04 08:32 | Discharge Summary ---
Providers Date of admission: 11/28/18 12:23 Expected Date of Discharge: 12/04/18 Attending physician: MEERA HAN Physical Exam - Vital Signs Vital Signs: Vital Signs - Last 24 Hrs Temp Pulse Pulse Resp BP Pulse Ox 12/04/18 06:04 84 20 95 12/03/18 22:51 76 16 93 L 12/03/18 20:00 98 F 75 16 105/63 93 L 12/03/18 10:17 92 L - General General Appearance: Alert, Oriented x3, Cooperative, No acute distress - Head Head exam: Normal inspection - Eye Eye exam: Normal appearance, PERRL, EOMI Pupils: Normal accommodation - ENT ENT exam: Mucous membranes moist Ear exam: Normal external inspection. negative: External canal tenderness Nasal Exam: Normal inspection. negative: Discharge, Sinus tenderness Mouth exam: Normal external inspection, Tongue normal Teeth exam: Normal inspection. negative: Dental caries Throat exam: Normal inspection. negative: Tonsillar erythema, Tonsillar exudate - Neck Neck exam: Other (chronic forward flexion, decreased ROM) - Respiratory Respiratory exam: Decreased breath sounds, Rhonchi (bases bilat) - Cardiovascular Cardiovascular Exam: Regular rate, Normal rhythm Peripheral Pulses: 0: Dorsalis Pedis (R) (severe peripheral vascular changes to skin. Pulses only palpable as trace to none), Dorsalis Pedis (L) (severe peripheral vascular changes to skin. Pulses only palpable as trace to none) - GI/Abdominal GI/Abdominal exam: Soft, Normal bowel sounds. negative: Tenderness - Extremities Extremities exam: Pedal edema (2+pitting edema bilat. Trace-none pedal pulses. BLE skin hyperkeratotic, casey, toes casey and cool. Sensation intact), Other ( hyperpigmented lower extremity below the knees and leathery skin). negative: Normal capillary refill - Back Back exam: Reports: Paraspinal tenderness (lumbar, kyposis) - Neurological Neurological exam: Alert, Normal gait, Oriented X3, Reflexes normal - Psychiatric Psychiatric exam: Normal affect, Normal mood - Skin Skin exam: Normal color Hospitalization - Hospitalization Admission Diagnosis: deconditioning due to subdural hematoma - Disposition Patien is doing better and is excited about going home and will follow up with a primary in one week and the neurosurgeon as scheduled in December - Hospitalization Course Disposition: Home, Self-Care Reason For Discharge/Transfer: Medical Stability Hospital Course: Raya gradually improved from 11/28/2018 to november. Abnormal Labs: Abnormal Lab Results 11/28/18 11/29/18 11/29/18 Range/Units 22:00 06:25 21:59 Carbon Dioxide 37.0 H (22-29) mmol/L Anion Gap 6.0 L (7-16) POC Glucose 122 H 185 H (70-110) mg/dL Random Glucose 140 H (74-109) mg/dL Hemoglobin A1c (4.0-6.00) % AST 8 L (10.0-50.0) U/L Total Protein 6.0 L (6.6-8.7) g/dL Albumin 3.2 L (4.0-5.0) g/dL 11/30/18 11/30/18 12/01/18 Range/Units 06:00 21:36 07:08 Carbon Dioxide (22-29) mmol/L Anion Gap (7-16) POC Glucose 168 H 114 H (70-110) mg/dL Random Glucose (74-109) mg/dL Hemoglobin A1c 6.60 H (4.0-6.00) % AST (10.0-50.0) U/L Total Protein (6.6-8.7) g/dL Albumin (4.0-5.0) g/dL Condition at Discharge: (1) Good Discharge Medications - Discharge Medications Home Medications: Ambulatory Orders Morphine + Buvicaine Pump 1 unit .ROUTE DAILY 08/24/14 [Last Taken 12/19/17] Amitriptyline HCl [Elavil] 100 mg PO QHS 12/19/17 [Last Taken Unknown] Atorvastatin Calcium [Lipitor] 40 mg PO QHS 12/19/17 [Last Taken Unknown] Metoprolol Succinate 50 mg PO DAILY 11/28/18 [Last Taken Unknown] Oxycodone HCl 5 - 20 mg PO Q6H PRN 11/28/18 [Last Taken Unknown] Spironolactone 25 mg PO DAILY 11/28/18 [Last Taken Unknown] Aspirin Enteric-Coated [Ecotrin (EC)] 81 mg PO DAILY tabec 12/04/18 [Last Taken Unknown] Discharge Plan - Discharge Instructions Activity at Discharge: Increase Activity as Tolerated Additional Instructions: follow up with primary in one week and follow up with neurosurgery as scheduled in [place] stop cigs and continue to use nicotene patches follow up with pain Dr for adjustments of pain meds Quality Measures - Quality Measures Quality Measures: Advance Directives, Documentation of Current Medications in Medical Record, Elder Maltreatment Screen and Follow-Up Plan, Heart Failure, Screening for High Blood Pressure and F/U Documented - Current Medications Quality Measure: Measure #130: Documentation of Current Medications Documentation of Current Medications: <Current Medications Documented/Reviewed> [K9419] - Blood Pressure Screening Quality Measure: Screening for High Blood Pressure and Follow-Up Documented Does Patient Have Any of the Following: No Blood Pressure Classification: Normal BP Reading Systolic Measurement: 106 Diastolic Measurement: 52 Screening for High Blood Pressure: < Normal BP, F/U Not Required > [N1912] - Heart Failure (DENIS/ARB Therapy) Quality Measure: Heart Failure Left Ventricular Systolic Function: Unknown DENIS Inhibitor or ARB Therapy for LVSD: Not Prescribed for Medical Reason [4010F with 1P] Medical Reason for NOT Prescribing: Hypotensive and at risk of cardiogenic shock - Heart Failure (Beta-alejandro Therapy) Quality Measure: Heart Failure Left Ventricular Systolic Function: Unknown Beta-Alejandro Therapy for LVEF < 40%: <Beta-Alejandro Therapy Prescribed> [M7650] - Advance Directives Quality Measure: Measure #47: Care Plan Advance Directives Established: No Advance Directives Information Provided To Patient: No Advance Directives on File: No Living Will: No Power of Steel Die Printer: No Advance Care Planning: <Care Plan/Decision Maker Documented; Discussed & Documented> [4543F] - Elder Abuse Suspicion Index Screening: Elder Abuse Suspicion Index Screening Rely on people for bathing, dressing, shopping, banking, etc: No Prevented from getting food, clothes, medication, etc: No Made to feel shamed or threatened by someone: No Forced to sign papers or use money against will: No Feel afraid, touched in ways not wanted or hurt physically: No Poor eye contact, withdrawn, malnourished, cuts or bruises: No Screening Result: Negative result EASI Reference Information: Deya RODRIGUEZ, Santi Tellez, Rachelle D, Aidan Polo.Development and validation of a tool to assist physicians identification of elder abuse: The Elder Abuse Suspicion Index (EASI ). Journal of Elder Abuse and Neglect, 2008; 20 (3): 276-300. - Elder Maltreatment Screen Quality Measures: Elder Maltreatment Screen and Follow-Up Plan Elder Maltreatment Screen: <Negative, No Follow-Up Plan Required> [G4707]
[2018-12-04] MEDS ORDERED: ASPIRIN 81 MG TABEC PO SCH (10:00)
[2018-12-04] MEDS: METOPROLOL SUCC 50 MG TABLET PO SCH (10:28)
[2018-12-04] MEDS: SPIRONOLACTONE 25 MG TAB PO SCH (10:28)
[2018-12-04] MEDS: NICOTINE 21 MG/24 HOUR PATCH TD SCH (10:29)
[2018-12-04] MEDS: DOCUSATE SODIUM 100 MG CAPSULE PO SCH (10:32)
--- NOTE | 2018-12-05 11:23 | Rehab Discharge Summary ---
Patient Information - Patient Information Diagnosis: deconditioning d/t subdural hematoma Ordered Treatment: OT Evaluate and Treat Surgery: No Past Medical/Surgical Hx: PAST MEDICAL/SURGICAL HISTORY Past Surgical History back x 2 in lower back and 2 in upper back pain pump in spinal cord PMH - Respiratory Hx Respiratory Disorders Yes Hx Bronchitis Yes Hx Chronic Obstructive Yes Pulmonary Disease (COPD) Hx Dyspnea Yes Hx Sleep Apnea Yes PMH - Cardiovascular Hx Cardiovascular Disorders Yes Hx Congestive Heart Failure Yes Hx Hypertension Yes Comment: high cholesterol PMH - Neuro Hx Neurological Disorders No PMH - GI Hx Gastrointestinal Disorders Yes Comment: constipation-pain medication related PMH - Hx Genitourinary Disorders No PMH - Endocrine Hx Endocrine Disorders No Hx Diabetes No Hx Thyroid Disease No PMH - Musculoskeletal Hx Musculoskeletal Disorders Yes Hx Arthritis Yes PMH - Psych Hx Psychiatric Problems Yes Hx Anxiety Yes Hx Depression Yes PMH - Hematology/Oncology Hx Hematology/Oncology Yes 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 His bedroom and bathroom are on the main level. He has 5 steps and 1 railing at the entrance. He has a tub/shower combination, no grab bar or seat and a standard height toilet, no grab bar. He is Ind with all meal prep, laundry and home mgmt tasks. He ambulated without an assistive device. He has a walker and straight cane.) Social History: Detail (Pt has a supportive daughter who is here from [place] for a week.) Precautions: [place], Fall, Other (No lifting greater than 5#) Subjective Information - Subjective Information Per Patient Objective Data - Pain Pain Present: Yes (Pain continues in neck and back.) - Mental Status Patient Orientation: Oriented x3 - Visual Perception Appears within normal limits for therapeutic activities - ROM Not within normal limits ([place] shoulder flexion limited to approx. 110 degrees, all UE AROM is functional for ADLs/IADLs.) - Strength/Tone Within normal limits ([place] UE strength 4+/5 within AROM limitations) - Coordination Appears within normal limits for therapeutic activities - Bed Mobility Independent - Transfers Independent - Balance Balance Sitting: Good Balance Standing: Fair - Sensation Intact - Gait Detail (Pt ambulating in room with 2 wheeled walker Indly with 3 liters of oxygen) - ADL's/IADL's Detail (Ind with showering in sitting and standing with tub seat, hand held shower and grab bar, pt is Ind with total body dressing. Pt deferred kitchen activity as he feels this will not be a problem.) Therapy Assessment - Therapy Assessment Detail (Pt is Ind with showering and total body dressing. Endurance is significantly improved.) Problem List - Problem List Physical Therapy Problem List: Detail (1) Decreased balance in standing 2) Decreased ability to complete prolonged physical activity 3) Decreased O2 sat levels with ambulation and ADL's.) Occupational Therapy Problem List: Detail (1. Need to further assess showering. 2. Need to further assess total body dressing. 3. Impaired endurance and functional mobility needed for safe and Ind ADLs/IADLs.) Goals - Goals Physical Therapy Goals: 1)The patient will ambulate on stairs with supervision for safety (Goal Met). 2) The patient will ambulate with appropriate assistive device 75-100 feet independently. (Goal Met). 3) The patient will tolerate 25 minutes of physical activity with one to two rest periods.(Goal Met). 4) Evaluate patient's balance with use of Objective balance scale.(Goal Met) Occupational Therapy Goals: Goals met: 1. Pt will be Ind with total body dressing using modified breathing techniques. 2. Pt will be Ind with showering in standing using energy conservation techniques. 3. Pt will be Ind with all functional mobility needed for safe and Ind ADLs/IADLs 4. Pt will demonstrate improved endurance needed for safe and Ind ADLs/IADLs. Prognosis - Prognosis Good Plan - Plan Physical Therapy Plan: PT M-F 1-2 times a day for gait training and balance exercises. Occupational Therapy Plan: Pt discharged home.
--- NOTE | 2018-12-05 15:22 | Rehab Discharge Summary ---
Patient Information - Patient Information Diagnosis: deconditioning d/t subdural hematoma Ordered Treatment: PT Evaluate and Treat Surgery: No Past Medical/Surgical Hx: PAST MEDICAL/SURGICAL HISTORY Past Surgical History back x 2 in lower back and 2 in upper back pain pump in spinal cord PMH - Respiratory Hx Respiratory Disorders Yes Hx Bronchitis Yes Hx Chronic Obstructive Yes Pulmonary Disease (COPD) Hx Dyspnea Yes Hx Sleep Apnea Yes PMH - Cardiovascular Hx Cardiovascular Disorders Yes Hx Congestive Heart Failure Yes Hx Hypertension Yes Comment: high cholesterol PMH - Neuro Hx Neurological Disorders No PMH - GI Hx Gastrointestinal Disorders Yes Comment: constipation-pain medication related PMH - Hx Genitourinary Disorders No PMH - Endocrine Hx Endocrine Disorders No Hx Diabetes No Hx Thyroid Disease No PMH - Musculoskeletal Hx Musculoskeletal Disorders Yes Hx Arthritis Yes PMH - Psych Hx Psychiatric Problems Yes Hx Anxiety Yes Hx Depression Yes PMH - Hematology/Oncology Hx Hematology/Oncology Yes 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 His bedroom and bathroom are on the main level. He has 5 steps and 1 railing at the entrance. He has a tub/shower combination, no grab bar or seat and a standard height toilet, no grab bar. He is Ind with all meal prep, laundry and home mgmt tasks. He ambulated without an assistive device. He has a walker and straight cane.) Social History: Detail (Pt has a supportive daughter who is here from [place] for a week.) Precautions: [place], Fall, Other (No lifting greater than 5#) Subjective Information - Subjective Information Per Patient (The patient had increased complaints of back pain with prolonged ambulation.) Objective Data - Mental Status Patient Orientation: Oriented x3 - Visual Perception Appears within normal limits for therapeutic activities - ROM Within normal limits - Strength/Tone Within normal limits - Bed Mobility Independent - Transfers Independent (The patient was independent with sit to and from stand transfer and toilet transfer.) - Balance Balance Sitting: Good Balance Standing: Good (The patient's balance using the Tinetti Assessment Tool was rated as moderate at risk for fall .) - Gait Detail (The patient ambulated indepepndently with standard cane and 4L of O2 a distance of 122 feet x 1 with O2 sat 88 to 89. The patient ambulated on 3 stairs with use of railing with supervision for safety only and 4L of O2. The patient was instructed to use a front wheeled walker outdoors.) Therapy Assessment - Therapy Assessment Detail (The patient progressed well with ambulation and endurance with physical activity.) Problem List - Problem List Physical Therapy Problem List: Detail (1) Decreased balance in standing 2) Decreased ability to complete prolonged physical activity 3) Decreased O2 sat levels with ambulation and ADL's.) Occupational Therapy Problem List: Detail (1. Need to further assess showering. 2. Need to further assess total body dressing. 3. Impaired endurance and functional mobility needed for safe and Ind ADLs/IADLs.) Goals - Goals Physical Therapy Goals: 1)The patient will ambulate on stairs with supervision for safety (Goal Met). 2) The patient will ambulate with appropriate assistive device 75-100 feet independently. (Goal Met). 3) The patient will tolerate 25 minutes of physical activity with one to two rest periods.(Goal Met). 4) Evaluate patient's balance with use of Objective balance scale.(Goal Met) Occupational Therapy Goals: Goals met: 1. Pt will be Ind with total body dressing using modified breathing techniques. 2. Pt will be Ind with showering in standing using energy conservation techniques. 3. Pt will be Ind with all functional mobility needed for safe and Ind ADLs/IADLs 4. Pt will demonstrate improved endurance needed for safe and Ind ADLs/IADLs. Plan - Plan Physical Therapy Plan: The patient was discharged to home and is to receive Outpatient PT. Occupational Therapy Plan: Pt discharged home.
== END 2018-12-04 11:16 | disposition home or self-care (01) | DRG 947 ==
LOC: MEDSURG 12:23
PROVIDERS: ADMIT Internal Medicine; ATTEND Internal Medicine
DX: R53.81 Other malaise (principal); S06.5X9A Traumatic subdural hemorrhage with loss of consciousness of unspecified duration, initial encounter; E46 Unspecified protein-calorie malnutrition; I42.9 Cardiomyopathy, unspecified; I50.9 Heart failure, unspecified; J44.9 Chronic obstructive pulmonary disease, unspecified; I73.9 Peripheral vascular disease, unspecified; I10 Essential (primary) hypertension; E78.00 Pure hypercholesterolemia, unspecified; F17.210 Nicotine dependence, cigarettes, uncomplicated; R06.00 Dyspnea, unspecified; G47.33 Obstructive sleep apnea (adult) (pediatric)
CPT/HCPCS: 36416; 80053; 82948; 83036; 94760; 94761; 97110; 97530; 97535; 99306; 99316

== ENCOUNTER 2018-12-09 14:58 | Emergency (ER) | payer MEDICARE ==
--- NOTE | 2018-12-09 17:29 | Emergency Department Record ---
History of Present Illness - General Chief Complaint: Back Pain/Injury Stated Complaint: BACK PAIN Time Seen by Provider: 12/09/18 15:23 Source: Patient Limitations: No limitations - History of Present Illness Initial Comments: pt fell asleep in a chair last night and fell out of the chair injuring his back. he has had severe problems in the past with his back his pain is in the low back. he has numbness in both feet but that is not new. he has no problems with bowel or bladder MD Complaint: Back pain, Back injury, Fall Onset/Timin -: Days(s) Place: Home Radiation: None Severity scale (1-10): 8 Quality: Aching Consistency: Constant Improves With: None Worsens With: None Context: Fall Associated Symptoms: Denies other symptoms - Related Data Previous Rx's Medication Instructions Recorded Aspirin Enteric-Coated [Ecotrin 81 mg PO DAILY tabec 12/04/18 (EC)] Hydrocodone/Acetaminophen [Capitan 1 each PO Q6HR #10 tablet 12/09/18 5-325 Tablet] Allergies Allergy/AdvReac Type Severity Reaction Status Date / Time No Known Drug Allergies Allergy Verified 12/09/18 15:03 Travel Screening - Travel/Exposure Within Last 30 Days Have you traveled within the last 30 days?: No Review of Systems Reviewed: No additional complaints except as noted below Constitutional: Reports: As per HPI. Denies: Chills, Fever, Malaise, Night sweats, Weakness, Weight change Eyes: Reports: As per HPI. Denies: Eye discharge, Eye pain, Photophobia, Vision change ENT: Reports: As per HPI. Denies: Congestion, Dental pain, Ear pain, Epistaxis , Hearing loss, Throat pain Respiratory: Reports: As per HPI. Denies: Cough, Dyspnea, Hemoptysis, Stridor, Wheezes Cardiovascular: Reports: As per HPI. Denies: Arrhythmia, Chest pain, Dyspnea on exertion, Edema, Murmurs, Orthopnea, Palpitations, Paroxysmal nocturnal dyspnea, Rheumatic Fever, Syncope Endocrine: Reports: As per HPI. Denies: Fatigue, Heat or cold intolerance, Polydipsia, Polyuria Gastrointestinal: Reports: As per HPI. Denies: Abdominal pain, Constipation, Diarrhea, Hematemesis, Hematochezia, Melena, Nausea, Vomiting Genitourinary: Reports: As per HPI. Denies: Dysuria, Frequency, Hematuria, Incontinence, Retention, Testicular pain, Testicular mass, Urgency Musculoskeletal: Reports: As per HPI, Back pain. Denies: Arthralgia, Gout, Joint swelling, Myalgia, Neck pain Skin: Reports: As per HPI. Denies: Bruising, Change in color, Change in hair/ nails, Lesions, Pruritus, Rash Neurological: Reports: As per HPI. Denies: Abnormal gait, Confusion, Headache, Numbness, Paresthesias, Seizure, Tingling, Tremors, Vertigo, Weakness Psychiatric: Reports: As per HPI. Denies: Anxiety, Auditory hallucinations, Depression, Homicidal thoughts, Suicidal thoughts, Visual hallucinations Hematological/Lymphatic: Reports: As per HPI. Denies: Anemia, Blood Clots, Easy bleeding, Easy bruising, Swollen glands Past Medical History - SOCIAL HISTORY Smoking Status: Current every day smoker Alcohol Use: None Drug Use: None - RESPIRATORY Hx Respiratory Disorders: Yes Hx Bronchitis: Yes Hx COPD: Yes Hx Dyspnea: Yes Hx Sleep Apnea: Yes Comment:: wears O2 at al times - CARDIOVASCULAR Hx Cardio Disorders: Yes Hx CHF: Yes Hx Hypertension: Yes Comment:: high cholesterol - NEURO Hx Neuro Disorders: No - GI Hx GI Disorders: Yes Comment:: constipation-pain medication related - Hx Genitourinary Disorders: No - ENDOCRINE Hx Endocrine Disorders: No Hx Diabetes: No Hx Thyroid Disease: No - MUSCULOSKELETAL Hx Musculoskeletal Disorders: Yes Hx Arthritis: Yes - PSYCH Hx Psych Problems: Yes Hx Anxiety: Yes - HEMATOLOGY/ONCOLOGY Hx Hematology/Oncology Disorders: Yes Hx Blood Disorders: Yes Family Medical History Any Significant Family History?: Yes Hx Alcohol Use: Mother Hx Diabetes: Father Physical Exam - General General Appearance: Alert, Oriented x3, Cooperative, Mild distress - Head Head exam: Normal inspection - Eye Eye exam: Normal appearance, PERRL, EOMI Pupils: Normal accommodation - ENT ENT exam: Normal exam, Mucous membranes moist, Normal external ear exam, Normal orophraynx Ear exam: Normal external inspection. negative: External canal tenderness Nasal Exam: Normal inspection. negative: Discharge, Sinus tenderness Mouth exam: Normal external inspection, Tongue normal Teeth exam: Normal inspection. negative: Dental caries Throat exam: Normal inspection. negative: Tonsillar erythema, Tonsillar exudate - Neck Neck exam: Normal inspection, Full ROM. negative: Tenderness - Respiratory Respiratory exam: Normal lung sounds bilaterally. negative: Respiratory distress - Cardiovascular Cardiovascular Exam: Regular rate, Normal rhythm, Normal heart sounds - GI/Abdominal GI/Abdominal exam: Soft, Normal bowel sounds. negative: Tenderness - Rectal Rectal exam: Deferred - exam: Deferred - Extremities Extremities exam: Normal capillary refill, Tenderness. negative: Normal inspection, Full ROM Image of Hand: 1 - swelling, ecchymosis, tenderness - Back Back exam: Reports: Normal inspection, Full ROM. Denies: Muscle spasm, Rash noted, Tenderness - Neurological Neurological exam: Alert, CN II-XII intact, Normal gait, Oriented X3 - Psychiatric Psychiatric exam: Normal affect, Normal mood - Skin Skin exam: Dry, Intact, Normal color, Warm Course Vital Signs 12/09/18 15:03 Temperature 97.8 F Pulse Rate 61 Respiratory 20 Rate Blood Pressure 130/81 Pulse Ox 95 - Reevaluation(s) Reevaluation #1: 12/09/18 18:09 ct is neg for fracture. 12/09/18 18:10 Disposition Disposition: Discharge Clinical Impression: Lumbar strain Qualifiers: Encounter type: initial encounter Qualified Code(s): S39.012A - Strain of muscle, fascia and tendon of lower back, initial encounter Disposition: Home, Self-Care Condition: (1) Good Instructions: Low Back Strain (ED) Additional Instructions: follow up with family doctor. return sooner if worse. ice to sore area. if pain continues have MRI. Prescriptions: Hydrocodone/Acetaminophen [Capitan 5-325 Tablet] 1 each PO Q6HR #10 tablet Forms: Patient Portal Access Quality - Quality Measures Quality Measures: N/A - Blood Pressure Screening Does Patient Have Any of the Following: No Blood Pressure Classification: Pre-Hypertensive BP Reading Systolic Measurement: 130 Diastolic Measurement: 81 Screening for High Blood Pressure: < Pre-Hypertensive BP, F/U Documented > [ G8950] Pre-Hypertensive Follow-up Interventions: Follow-up with rescreen every year.
== END 2018-12-09 18:26 | disposition home or self-care (01) ==
LOC: ER 14:58
DX: S39.012A Strain of muscle, fascia and tendon of lower back, initial encounter (principal); R20.0 Anesthesia of skin; M79.641 Pain in right hand; J44.9 Chronic obstructive pulmonary disease, unspecified; I10 Essential (primary) hypertension; F17.210 Nicotine dependence, cigarettes, uncomplicated; Z99.81 Dependence on supplemental oxygen; X50.1XXA Overexertion from prolonged static or awkward postures, initial encounter; Y93.84 Activity, sleeping; Y92.000 Kitchen of unspecified non-institutional (private) residence as the place of occurrence of the external cause
CPT/HCPCS: 72131; 99283

== ENCOUNTER 2019-01-10 20:02 | Emergency (ER) | payer MEDICARE ==
[2019-01-10] MEDS ORDERED: ACETAMINOPHEN 1,000 MG/100 ML BTL IVPB ONE (20:50)
[2019-01-10 20:52] LABS: HEMATOCRIT 53.5 % (42.0-52.0); HEMOGLOBIN 17.1 gm/dl (14.0-18.0); MEAN CELL VOLUME 99.3 fl (81-97); MEAN CORPUSCULAR HEMOGLOBIN 31.7 pg (27-33); MEAN PLATELET VOLUME 9.8 fl (7.4-10.4); PLATELET COUNT 172 K/uL (130-400); RED BLOOD COUNT 5.39 M/uL (4.40-5.70); RED CELL DISTRIBUTION WIDTH 17.9 % (11.5-14.5); WHITE BLOOD COUNT W/O DIFF 12.4 K/uL (4.2-12.2)
[2019-01-10 21:01] LABS: BLOOD UREA NITROGEN 11 mg/dL (8-23); EST GLOMERULAR FILTRATION RATE > 60 mL/min
[2019-01-10 21:04] LABS: GLUCOSE,RANDOM 154 mg/dL (74-109)
--- NOTE | 2019-01-10 21:18 | Emergency Department Record ---
History of Present Illness - General Chief Complaint: Back Pain/Injury Stated Complaint: BACK PAIN Time Seen by Provider: 01/10/19 20:34 Source: Patient, EMS Mode of Arrival: Wheelchair Limitations: No limitations - History of Present Illness Initial Comments: The patient is here by EMS due to slipping and falling at home and landing on his back. He then had an increase in his chronic back pain. The patient has a LONG hx of chronic pain and is on multiple medicines for it. He also is on home O2 that he is not very compliant with. The patient denies any pain radiating down the legs and no leg numbness, tingling, weakness, or any bowel or bladder issues. MD Complaint: Back pain Onset/Timin -: Hour(s) Similar Symptoms Previously: Yes Place: Home Severity: Moderate Severity scale (1-10): 8 Quality: Sharp Consistency: Constant, Getting worse Improves With: None Worsens With: Movement Context: Fall Associated Symptoms: Denies other symptoms Treatments Prior to Arrival: Prescription analgesics - Related Data Previous Rx's Medication Instructions Recorded RX: Aspirin Enteric-Coated 81 mg PO DAILY tabec 12/04/18 [Ecotrin (EC)] Allergies Allergy/AdvReac Type Severity Reaction Status Date / Time No Known Drug Allergies Allergy Verified 01/10/19 20:21 Travel Screening - Travel/Exposure Within Last 30 Days Have you traveled within the last 30 days?: No - Travel/Exposure Within Last Year Have you traveled outside the [place] in the last year?: No - Additonal Travel Details Have you been exposed to anyone with a communicable illness?: No - Travel Symptoms Symptom Screening: None Review of Systems Constitutional: Denies: Chills, Fever Eyes: Denies: Eye discharge ENT: Denies: Congestion Respiratory: Denies: Cough, Dyspnea Past Medical History - SOCIAL HISTORY Smoking Status: Current every day smoker Alcohol Use: None Drug Use: None - RESPIRATORY Hx Respiratory Disorders: Yes Hx Bronchitis: Yes Hx COPD: Yes Hx Dyspnea: Yes Hx Sleep Apnea: Yes Comment:: wears O2 at al times - CARDIOVASCULAR Hx Cardio Disorders: Yes Hx CHF: Yes Hx Hypertension: Yes Comment:: high cholesterol - NEURO Hx Neuro Disorders: No - GI Hx GI Disorders: Yes Comment:: constipation-pain medication related - Hx Genitourinary Disorders: No - ENDOCRINE Hx Endocrine Disorders: No Hx Diabetes: No Hx Thyroid Disease: No - MUSCULOSKELETAL Hx Musculoskeletal Disorders: Yes Hx Arthritis: Yes - PSYCH Hx Psych Problems: Yes Hx Anxiety: Yes - HEMATOLOGY/ONCOLOGY Hx Hematology/Oncology Disorders: Yes Hx Blood Disorders: Yes Family Medical History Any Significant Family History?: Yes Hx Alcohol Use: Mother Hx Diabetes: Father Physical Exam - General General Appearance: Alert, Oriented x3, Cooperative, No acute distress - Head Head exam: Atraumatic, Normocephalic - Eye Eye exam: Normal appearance, PERRL - ENT Throat exam: Normal inspection. negative: Tonsillar erythema, Tonsillar exudate - Neck Neck exam: Normal inspection, Full ROM. negative: Tenderness - Respiratory Respiratory exam: Normal lung sounds bilaterally. negative: Respiratory distress - Cardiovascular Cardiovascular Exam: Regular rate, Normal rhythm, Normal heart sounds - GI/Abdominal GI/Abdominal exam: Soft, Normal bowel sounds. negative: Tenderness - Extremities Extremities exam: Pedal edema (Chronic bilaterally. ). negative: Normal inspection - Back Back exam: Reports: Normal inspection, Paraspinal tenderness, Vertebral tenderness (There is diffuse tenderness to the mid back at the site of trauma.) - Neurological Neurological exam: Alert, Oriented X3, Reflexes normal. negative: Altered, Motor sensory deficit - Skin Skin exam: negative: Rash Course Vital Signs 01/10/19 20:36 Temperature 98.5 F Pulse Rate 108 H Respiratory 24 Rate Blood Pressure 166/74 Pulse Ox 93 L - Reevaluation(s) Reevaluation #1: The patient is feeling better after the [employer] and is up ambulating normally. His pain is controlled and he feels ready for home and will see his PCP next week. 01/10/19 22:13 Medical Decision Making - Data Complexity MDM Data: Labs Ordered and/or Reviewed, X-Ray Ordered and/or Reviewed - Lab Data Result diagrams: 01/10/19 20:45 01/10/19 20:45 Lab Results 01/10/19 01/10/19 Range/Units 20:45 20:45 WBC 12.4 H (4.2-12.2) K/uL RBC 5.39 (4.40-5.70) M/uL Hgb 17.1 (14.0-18.0) gm/dl Hct 53.5 H (42.0-52.0) % MCV 99.3 H (81-97) fl MCH 31.7 (27-33) pg MCHC 32.0 (32-36) g/dl RDW 17.9 H (11.5-14.5) % Plt Count 172 (130-400) K/uL MPV 9.8 (7.4-10.4) fl Neutrophils % 93.0 H (47-80) % Eosinophils % Not Reportable Basophils % Not Reportable Lymphocytes 5.0 L (16-45) % Monocytes 2.0 (0-9) % Sodium 139 (136-145) mmol/L Potassium 4.6 H (3.4-4.5) mmol/L Chloride 98 (98-107) mmol/L Carbon Dioxide 30.0 H (22-29) mmol/L Anion Gap 11.0 (7-16) BUN 11 (8-23) mg/dL Creatinine 1.0 (0.7-1.2) mg/dL Estimated GFR > 60 mL/min Random Glucose 154 H (74-109) mg/dL Calcium 8.7 L (8.8-10.2) mg/dL - Radiology Data Radiology results: Report reviewed (T spine: Neg for acute changes. Lumbar spine: Possible mild L4 compression but no burst fx.) Disposition Disposition: Discharge Clinical Impression: Acute exacerbation of chronic low back pain Disposition: Home, Self-Care Condition: (2) Stable Instructions: Chronic Back Pain (ED) Additional Instructions: Please continue your regular medicines and please see your spine doctor next week for recheck. Return to the ER for any worsening symptoms. Forms: Patient Portal Access Time of Disposition: 22:15 Quality - Quality Measures Quality Measures: N/A - Blood Pressure Screening View Details: Yes Does Patient Have Any of the Following: No Blood Pressure Classification: Hypertensive Reading Systolic Measurement: 166 Diastolic Measurement: 74 Screening for High Blood Pressure: < First Hypertensive BP, F/U Documented > [ G8950] First Hypertensive Follow-up Interventions: Referral to alternative/primary care provider.
--- NOTE | 2019-01-13 13:47 | RADIOLOGY REPORT ---
EXAM: LUMBAR SPINE, AP AND LATERAL VIEWS HISTORY: BACK PAIN WITH LIMITED RANGE OF MOTION. FALL. TECHNIQUE: AP and lateral views of the lumbar spine are obtained as well as spot lateral views of the thoracolumbar and lumbosacral junctions. Comparison: Two views of the lumbar spine dated 11/07/13. CT of the lumbar spine without contrast dated 12/09/18. FINDINGS: There is diffuse osteopenia. Five non-rib bearing lumbar type vertebra are identified. Post laminectomy changes are again noted at the L4 and L5 levels. Minimal levoconvex curvature is noted centered at the L3 level. The vertebral bodies are otherwise normal in alignment. Not as well seen on the prior CT examination is questionable minor anterior wedge deformity of L4 involving the superior end plate. The anterior height measures 28 mm while the anterior height of L5 measures 40 mm. The vertebral bodies are otherwise normal in height. No retropulsion of bone. There are mild to moderate degenerative end plate/disk changes scattered throughout the visualized spine. Multilevel facet arthropathy is present. Posterior osseous fusion is noted at the lower lumbar levels. An intraspinal catheter and pump remain in place with the catheter extending into the spinal canal at the upper levels. The tip of the catheter is seen on same day radiographic examination of the thoracic spine projecting at the T10- T11 level. An intracardiac spinal stimulator is in place. There are mild to moderate degenerative changes of the hips. IMPRESSION: 1. MINOR ANTERIOR WEDGE DEFORMITY OF L4 INVOLVING THE SUPERIOR END PLATE NOT WELL SEEN ON THE PRIOR CT EXAMINATION. NO DEFINITE RETROPULSION OF BONE. NO OTHER EVIDENCE OF COMPRESSION DEFORMITY NOR SUBLUXATION. 2. MULTILEVEL DEGENERATIVE CHANGES. 3. POST SURGICAL CHANGES REDEMONSTRATED AT THE LOWER LUMBAR LEVELS. JOB NUMBER: [id number] [facility]
== END 2019-01-10 22:45 | disposition home or self-care (01) ==
LOC: ER 20:02
DX: G89.11 Acute pain due to trauma (principal); M54.5 Low back pain; M54.6 Pain in thoracic spine; I50.9 Heart failure, unspecified; J44.9 Chronic obstructive pulmonary disease, unspecified; W01.10XA Fall on same level from slipping, tripping and stumbling with subsequent striking against unspecified object, initial encounter; I10 Essential (primary) hypertension; Y92.009 Unspecified place in unspecified non-institutional (private) residence as the place of occurrence of the external cause; F17.210 Nicotine dependence, cigarettes, uncomplicated; Z99.81 Dependence on supplemental oxygen
CPT/HCPCS: 72072; 72100; 80048; 85027; 96365; 99284

== ENCOUNTER 2019-02-05 11:33 | Emergency (ER) | payer MEDICARE ==
[2019-02-05] MEDS ORDERED: ACETAMINOPHEN 1,000 MG/100 ML BTL IVPB ONE (11:40)
[2019-02-05] MEDS ORDERED: 0.9 % SODIUM CHLORIDE 1000ML 1,000 ML IV ONE (11:40)
--- NOTE | 2019-02-05 11:45 | Emergency Department Record ---
History of Present Illness - General Chief Complaint: Fall Injury Stated Complaint: FALL Time Seen by Provider: 02/05/19 11:36 Source: Patient Mode of Arrival: EMS Limitations: No limitations - History of Present Illness Initial Comments: 68 yo male presents after multiple falls today. He has an extensive history of spinal disease, multiple surgeries, multiple falls, admissions, and chronic pain. Today he reports falling four times. He denies any head injury or new pain. He reports his chronic back pain is similar in location and sensation. No new weakness, numbness, syncope, chest pain, cough, shortness of breath. He has been in and out of hospitals and rehabilitation in the past for falls and chronic back pain. 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 Witnessed: No Place Fall Occurred: Home Loss of Consciousness: None Prolonged Down Time?: No Symptoms Prior to Fall: None Location: Back Severity: Moderate Quality: Aching Context: History of frequent falls Associated Symptoms: Denies - Ivan Coma Scale Eye Response: (4) Open spontaneously Motor Response: (6) Obeys commands Verbal Response: (5) Oriented [place] Total: 15 - Related Data Home Medications Medication Instructions Recorded Confirmed Last Taken Atorvastatin Calcium [Lipitor] 40 mg PO QHS 02/05/19 02/05/19 02/04/19 Furosemide [Lasix] 20 mg PO BID 02/05/19 02/05/19 02/04/19 Lisinopril 20 mg PO DAILY 02/05/19 02/05/19 02/04/19 Nicotine [Nicotine Patch] 1 each TD DAILY 02/05/19 02/05/19 02/04/19 Polyethylene Glycol 3350 238Gm 17 gm PO DAILY 02/05/19 02/05/19 02/04/19 [Polyethylene Glycol 3350] Sennosides/Docusate Sodium 1 each PO DAILY 02/05/19 02/05/19 02/04/19 [Senna-Docusate Sodium Tablet] Previous Rx's Medication Instructions Recorded Aspirin Enteric-Coated [Ecotrin 81 mg PO DAILY tabec 12/04/18 (EC)] Allergies Allergy/AdvReac Type Severity Reaction Status Date / Time No Known Drug Allergies Allergy Verified 01/10/19 20:21 Review of Systems Constitutional: Denies: Chills, Fever, Weakness Eyes: Denies: Eye discharge ENT: Denies: Congestion, Throat pain Respiratory: Denies: Cough, Dyspnea Cardiovascular: Denies: Chest pain, Palpitations, Syncope Endocrine: Denies: Fatigue, Polydipsia, Polyuria Gastrointestinal: Denies: Abdominal pain, Diarrhea, Nausea, Vomiting Genitourinary: Denies: Dysuria, Frequency, Hematuria Musculoskeletal: Reports: Arthralgia, Back pain, Myalgia Skin: Denies: Bruising, Change in color, Rash Neurological: Denies: Headache, Weakness Psychiatric: Denies: Anxiety Hematological/Lymphatic: Denies: Blood Clots, Easy bleeding, Easy bruising, Swollen glands Past Medical History - SOCIAL HISTORY Smoking Status: Current every day smoker Drug Use: None - RESPIRATORY Hx Respiratory Disorders: Yes Hx Bronchitis: Yes Hx COPD: Yes Hx Dyspnea: Yes Hx Sleep Apnea: Yes Comment:: wears O2 at al times - CARDIOVASCULAR Hx Cardio Disorders: Yes Hx CHF: Yes Hx Hypertension: Yes Comment:: high cholesterol - NEURO Hx Neuro Disorders: No - GI Hx GI Disorders: Yes Comment:: constipation-pain medication related - Hx Genitourinary Disorders: No - ENDOCRINE Hx Endocrine Disorders: No Hx Diabetes: No Hx Thyroid Disease: No - MUSCULOSKELETAL Hx Musculoskeletal Disorders: Yes Hx Arthritis: Yes - PSYCH Hx Psych Problems: Yes Hx Anxiety: Yes - HEMATOLOGY/ONCOLOGY Hx Hematology/Oncology Disorders: Yes Hx Blood Disorders: Yes Family Medical History Hx Alcohol Use: Mother Hx Diabetes: Father Physical Exam - General General Appearance: Alert, Oriented x3, Cooperative, No acute distress Limitations: No limitations - Head Head exam: Atraumatic, Normocephalic, Normal inspection Head exam detail: negative: Abrasion, Contusion, Hematoma, Laceration - Eye Eye exam: Normal appearance, PERRL. negative: Conjunctival injection, Scleral icterus - ENT ENT exam: Normal exam, Mucous membranes moist Ear exam: Normal external inspection Nasal Exam: Normal inspection Mouth exam: Normal external inspection - Neck Neck exam: Normal inspection. negative: Full ROM (chronic fusion held in flexion) - Respiratory Respiratory exam: Normal lung sounds bilaterally. negative: Chest wall tenderness, Decreased breath sounds, Respiratory distress - Cardiovascular Cardiovascular Exam: Regular rate, Normal rhythm, Normal heart sounds - GI/Abdominal GI/Abdominal exam: Soft. negative: Tenderness - Rectal Rectal exam: Deferred - exam: Deferred - Extremities Extremities exam: Full ROM, Pedal edema. negative: Normal inspection (chronic stasis changes.), Normal capillary refill, Tenderness Image of Full Body: 1 - normal inspection, old healed scars, no bruising, tender mid line - Back Back exam: Reports: Paraspinal tenderness, Tenderness, Vertebral tenderness. Denies: CVA tenderness (R), CVA tenderness (L) - Neurological Neurological exam: Alert, Oriented X3. negative: Motor sensory deficit - Psychiatric Psychiatric exam: Normal affect, Normal mood. negative: Agitated, Anxious - Skin Skin exam: Dry, Intact, Normal color, Warm Course - Reevaluation(s) Reevaluation #1: 02/05/19 13:45 The Lumbar XR was reviewed No new acute changes The patient reports he is feeling much improved He ambulated very well with a walker. He states he is supposed to use a walker at home but he does not. I discussed the difficulties he has had the last several months. I offered observation with an evaluation from physical therapy. He states he was just discharged from PT and he does not want additional inpatient. He has PT in the home twice a week. I expressed that ultimately his safety at home is the concern. He states he feels safe, he has reliable family, home care in the house, a PCP, a Pain specialist, a spine physician as well. He does not feel there would be any benefit to admission. He certainly responded well to the pain medication, ambulated very steady with the walker, and seems to agree to be compliant. We discussed things he can do at home to minimize fall risks as well. 02/05/19 13:55 02/05/19 14:06 The daughter was present at [place]. She is aware of the offer for admission. She is aware he is not compliant with his back brace or his walker. She will continue to assist him with his needs. He has a PT appointment today. 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 The patient maintains he feels safe and requests [place]. Medical Decision Making - Lab Data Result diagrams: 02/05/19 11:55 02/05/19 11:55 Disposition Disposition: Discharge Clinical Impression: Lumbar strain Disposition: Home, Self-Care Condition: (1) Good Instructions: Fall Prevention for Older Adults (ED) Additional Instructions: Call your doctor for the next available follow up appointment Review this ER visit and the tests performed with your family doctor Return to the ER for a recheck if worse, any new concerns or questions Use your walker at ALL times when walking Forms: Patient Portal Access Time of Disposition: 13:59 Quality - Quality Measures Quality Measures: N/A - Blood Pressure Screening Does Patient Have Any of the Following: No Blood Pressure Classification: Normal BP Reading Systolic Measurement: 107 Diastolic Measurement: 74 Screening for High Blood Pressure: < Normal BP, F/U Not Required > [G8783]
[2019-02-05] MEDS ORDERED: MORPHINE SULFATE 10 MG/ML VIAL IVP ONE (11:47)
[2019-02-05 12:05] LABS: ABSOLUTE NEUTROPHIL COUNT 6.46; BASO % 0.1 % (0-6); EOS % 0.9 % (0-6); GRAN % 74.5 % (47-80); HEMATOCRIT 41.9 % (42.0-52.0); HEMOGLOBIN 13.3 gm/dl (14.0-18.0); LYMPH % 15.3 % (16-45); MEAN CELL VOLUME 99.5 fl (81-97); MEAN CORPUSCULAR HGB CONC 31.7 g/dl (32-36); MEAN PLATELET VOLUME 10.1 fl (7.4-10.4); MONO % 9.2 % (0-9); PLATELET COUNT 141 K/uL (130-400); RED BLOOD COUNT 4.21 M/uL (4.40-5.70); RED CELL DISTRIBUTION WIDTH 15.7 % (11.5-14.5); WHITE BLOOD COUNT W/O DIFF 8.7 K/uL (4.2-12.2)
[2019-02-05 12:06] LABS: MEAN CORPUSCULAR HEMOGLOBIN 31.5 pg (27-33)
[2019-02-05 12:42] LABS: BLOOD UREA NITROGEN 16 mg/dL (8-23); CREATININE 0.9 mg/dL (0.7-1.2); EST GLOMERULAR FILTRATION RATE > 60 mL/min
[2019-02-05 12:43] LABS: TOTAL PROTEIN 5.5 g/dL (6.6-8.7)
[2019-02-05 12:45] LABS: GLUCOSE,RANDOM 145 mg/dL (74-109)
[2019-02-05 12:47] LABS: ALB/GLOB RATIO 1.8 (1.1-1.8); ALBUMIN 3.5 g/dL (4.0-5.0); ALKALINE PHOSPHATASE 158 U/L (40-129); ALT/SGPT 14 U/L (<41); AST/SGOT 13 U/L (10.0-50.0)
--- NOTE | 2019-02-06 20:03 | RADIOLOGY REPORT ---
EXAM: LUMBAR SPINE / AP LAT HISTORY: ACUTE ON CHRONIC LOWER BACK PAIN. MULTIPLE RECENT FALLS. RECENT COMPRESSION FRACTURE OF T10. MULTIPLE SPINAL SURGERIES. TECHNIQUE: AP and lateral views of the lumbar spine are obtained as well as a spot lateral view of the thoracolumbar junction. COMPARISON: Two views of the lumbar spine as well as two views of the thoracic spine dated 01/10/2019. FINDINGS: Diffuse osteopenia limits evaluation. Superimposed bowel gas and stool also limits evaluation of the lumbar spine on the frontal view. Five lumbar-type vertebrae are again identified. The lumbar vertebral bodies are grossly normal in alignment. Mild anterior wedging of L4 persists, unchanged. The lumbar vertebral bodies are otherwise normal in height. The lower thoracic vertebral bodies appear stable in height. Multilevel degenerative disc/degenerative endplate changes are identified with anterior bridging marginal osteophytes scattered throughout the lumbar spine. Multilevel bilateral facet arthropathy persists. An intraspinal catheter connected to a medication pump at the level of the left flank is demonstrated. The intraspinal catheter likely enters the spinal canal at the mid lumbar levels. The tip is at the T11 level. Postlaminectomy changes are noted at the lower lumbar levels. IMPRESSION: 1. LIMITED EXAMINATION. 2. MILD ANTERIOR WEDGING OF L4 APPEARS STABLE. NO DEFINITE ACUTE FRACTURE NOR SUBLUXATION. 3. MULTILEVEL DEGENERATIVE CHANGES. 4. INTRASPINAL CATHETER IN PLACE WITH ITS TIP PROJECTING AT THE UPPER T11 LEVEL. NOT MENTIONED ABOVE IS AN INTRACARDIAC STIMULATOR LEAD WITH ITS TIP IN THE RIGHT ATRIUM. THE HEART PROJECTS ENLARGED. JOB NUMBER: [id number] [facility]
== END 2019-02-05 14:21 | disposition home or self-care (01) ==
LOC: ER 11:33
DX: S39.012A Strain of muscle, fascia and tendon of lower back, initial encounter (principal); W19.XXXA Unspecified fall, initial encounter; Y92.009 Unspecified place in unspecified non-institutional (private) residence as the place of occurrence of the external cause; I10 Essential (primary) hypertension; J44.9 Chronic obstructive pulmonary disease, unspecified; I50.9 Heart failure, unspecified; Z91.81 History of falling; F17.210 Nicotine dependence, cigarettes, uncomplicated
CPT/HCPCS: 99284 ×2; 96365; 96375; 85025; 80053; 72100; J2270; J7030

== ENCOUNTER 2019-02-26 15:27 | Emergency (ER) | payer MEDICARE ==
--- NOTE | 2019-02-26 15:45 | Emergency Department Record ---
History of Present Illness - General Chief Complaint: Fall Injury Stated Complaint: FALL INJURY Time Seen by Provider: 02/26/19 15:34 Source: Patient, Family (Brother) Mode of Arrival: Ambulatory Limitations: No limitations - History of Present Illness Initial Comments: 68 yo male presents after a fall. He has a history of multiple falls. He has severe spinal disease with chronic balance problems. He states he has fallen "twenty times" in the last day. He has a prior SDH. He is not anticoagulated. He uses a walker inconsistently. In the last year he has been admitted and been through physical rehabilitation with minimal improvement. He has elected to remain at home. No syncope. He has chronic back and neck pain that is unchanged. He reports that he will suddenly give out and fall but he does not think he is loosing consciousness. He has hit his head. He thinks his last tetanus shot is up to date. He has a history of COPD, Dilated Cardiomyopathy, CAD (RCA and Circ disease), EF in 07/2018 was 20-25%, ICD implanted. 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 He is not compliance with his home oxygen of 2 lnc unless "he feels like he needs it" for COPD. MD Complaint: Fall -: Unknown Fall From: Standing When Fall Occurred: Recurrent falls Fall Witnessed: No Place Fall Occurred: Home Loss of Consciousness: None Prolonged Down Time?: No Symptoms Prior to Fall: None Location: Head, Back Severity scale (1-10): 6 Quality: Aching Context: History of frequent falls Associated Symptoms: Denies - Ivan Coma Scale Eye Response: (4) Open spontaneously Motor Response: (6) Obeys commands Verbal Response: (5) Oriented [place] Total: 15 - Related Data Previous Rx's Medication Instructions Recorded Aspirin Enteric-Coated [Ecotrin 81 mg PO DAILY tabec 12/04/18 (EC)] Allergies Allergy/AdvReac Type Severity Reaction Status Date / Time No Known Drug Allergies Allergy Verified 01/10/19 20:21 Travel Screening - Travel/Exposure Within Last 30 Days Have you traveled within the last 30 days?: No Review of Systems Constitutional: Denies: Chills, Fever Eyes: Denies: Eye discharge, Eye pain, Vision change ENT: Denies: Congestion, Throat pain Respiratory: Reports: Cough, Dyspnea (chronic COPD) Cardiovascular: Denies: Chest pain, Palpitations, Syncope Endocrine: Denies: Fatigue, Polydipsia, Polyuria Gastrointestinal: Denies: Abdominal pain, Diarrhea, Nausea, Vomiting Genitourinary: Denies: Dysuria, Frequency, Hematuria Musculoskeletal: Reports: Back pain Skin: Denies: Bruising, Change in color, Rash Neurological: Denies: Confusion, Headache, Numbness Psychiatric: Denies: Anxiety Hematological/Lymphatic: Denies: Easy bleeding, Easy bruising Past Medical History - SOCIAL HISTORY Smoking Status: Current every day smoker - RESPIRATORY Hx Respiratory Disorders: Yes Hx Bronchitis: Yes Hx COPD: Yes Hx Dyspnea: Yes Hx Sleep Apnea: Yes Comment:: wears O2 at al times - CARDIOVASCULAR Hx Cardio Disorders: Yes Hx CHF: Yes Hx Hypertension: Yes Comment:: high cholesterol - NEURO Hx Neuro Disorders: No - GI Hx GI Disorders: Yes Comment:: constipation-pain medication related - Hx Genitourinary Disorders: No - ENDOCRINE Hx Endocrine Disorders: No Hx Diabetes: No Hx Thyroid Disease: No - MUSCULOSKELETAL Hx Musculoskeletal Disorders: Yes Hx Arthritis: Yes - PSYCH Hx Psych Problems: Yes Hx Anxiety: Yes - HEMATOLOGY/ONCOLOGY Hx Hematology/Oncology Disorders: Yes Hx Blood Disorders: Yes Family Medical History Any Significant Family History?: Yes Hx Alcohol Use: Mother Hx Diabetes: Father Physical Exam - General General Appearance: Alert, Oriented x3, Cooperative, No acute distress Limitations: No limitations - Head Head exam: negative: Atraumatic, Normal inspection Head exam detail: Abrasion Image of Face/Head: 1 - abrasion, dried blood 2 - abrasion 3 - abrasion 4 - 1.5cm laceration (fresh) - Eye Eye exam: Normal appearance, PERRL. negative: Conjunctival injection - ENT ENT exam: Normal exam, Mucous membranes moist Ear exam: Normal external inspection Nasal Exam: Normal inspection Mouth exam: Normal external inspection Teeth exam: Normal inspection Throat exam: Normal inspection - Neck Neck exam: Tenderness. negative: Normal inspection (severe ), Full ROM - Respiratory Respiratory exam: Decreased breath sounds. negative: Normal lung sounds bilaterally, Accessory muscle use, Prolonged expiratory, Respiratory distress, Wheezes - Cardiovascular Cardiovascular Exam: Irregular rhythm, Tachycardia. negative: Regular rate, Nor mal rhythm, Normal heart sounds Peripheral Pulses: 2+: Radial (R), Radial (L) - GI/Abdominal GI/Abdominal exam: Soft. negative: Distended, Guarding, Tenderness - Rectal Rectal exam: Deferred - exam: Deferred - Extremities Extremities exam: Full ROM. negative: Normal inspection Image of Full Body: 1 - numerous areas of bruising, scabs, abrasions of various ages, no joint tenderness, 2 - healing older appearing abrasion - Back Back exam: Reports: Tenderness, Other (The spine is chronically tender from the neck to the lumbar, no new tenderness per the patient). Denies: Normal inspection, CVA tenderness (R), CVA tenderness (L) - Neurological Neurological exam: Alert, CN II-XII intact, Oriented X3. negative: Altered, Motor sensory deficit - Psychiatric Psychiatric exam: Normal affect, Normal mood. negative: Agitated, Anxious - Skin Skin exam: Abrasion Course Vital Signs 02/26/19 15:32 Temperature 98.3 F Pulse Rate 125 H Respiratory 20 Rate Blood Pressure 108/70 Pulse Ox 89 L - Reevaluation(s) Reevaluation #1: 02/26/19 16:00 EKG #1: 15:51 Rate: 122 Rhythm: atrial fibrillation with multiple PVC's [place]: Left Intervals: Qtc 479 ST segments: non specific ST changes Prior: none 02/26/19 16:23 The patient is not aware of a history of atrial fibrillation 02/26/19 16:23 HR improved to 100-110 02/26/19 16:24 K is 3.2. Normal renal function The WBC is 12.5 02/26/19 16:25 Calcium is 8.4 02/26/19 16:36 Procedure: 1.5 cm laceration of the scalp Wound was cleaned and prepped in sterile fashion, no residual FB identified on examination. The wound was copiously irrigated with NS Wound was anesthetized with 1 mL of 1% Lidocaine with epinephrine The laceration was repaired with 4 johny Patient tolerated the procedure well without complications. We discussed home care, reasons for immediate return if any concerns, and suture removal in 7 days 02/26/19 16:54 The BNP is 3812 The Troponin is normal at 0.01 02/26/19 16:[address] negative for acute injury The HCT demonstrates a stable 5mm subdural hemorrhage compared to prior. No new bleed. 02/26/19 16:57 Magnesium is low at 1.6. KCL and Magnesium ordered The patient's occupational therapy department chair is at [facility]. [facility] will be contacted. 02/26/19 17:20 The patient was accepted to [facility] by Dr Sosa of Medical Decision Making - Lab Data Result diagrams: 02/26/19 15:55 02/26/19 15:55 Disposition Disposition: Transfer Clinical Impression: Physical deconditioning, Atrial fibrillation, PVCs (premature ventricular contractions) Falls Qualifiers: Encounter type: initial encounter Qualified Code(s): W19.XXXA - Unspecified fall, initial encounter Head contusion Qualifiers: Encounter type: initial encounter Contusion of head detail: scalp Qualified Code(s): S00.03XA - Contusion of scalp, initial encounter Chronic back pain Qualifiers: Back pain laterality: unspecified Sciatica presence: unspecified whether sciatica present Disposition: Acute Care Hospital Transfer Transfer To: [facility] Reason For Transfer: New onset afib, falls, SDH chronic Accepting Physician: Ian Time Discussed w/Accepting Physician: 17:20 Condition: (2) Stable Forms: Patient Portal Access Time of Disposition: 17:20 Quality - Quality Measures Quality Measures: N/A, Blunt Head Trauma (>2yr) - Ivan Coma Scale Eye Response: (4) Open spontaneously Motor Response: (6) Obeys commands Verbal Response: (5) Oriented [place] Total: 15 - Blunt Head Trauma - Adult Quality Measure: Measure #415: Utilization of CT for Minor Blunt Head Trauma ICD10 Codes Entered: Yes Was CT ordered: Yes Does Patient Have Any of the Following: Taking Antiplatelet Med Ivan Score: [address] for Minor Blunt Head Trauma: Patient Excluded [G9531] - Blood Pressure Screening Does Patient Have Any of the Following: No Blood Pressure Classification: Normal BP Reading Systolic Measurement: 108 Diastolic Measurement: 70 Screening for High Blood Pressure: < Normal BP, F/U Not Required > [G8783]
[2019-02-26 16:04] LABS: HEMATOCRIT 42.4 % (42.0-52.0); HEMOGLOBIN 13.7 gm/dl (14.0-18.0); MEAN CELL VOLUME 101.7 fl (81-97); MEAN CORPUSCULAR HGB CONC 32.3 g/dl (32-36); MEAN PLATELET VOLUME 9.1 fl (7.4-10.4); PLATELET COUNT 207 K/uL (130-400); RED BLOOD COUNT 4.17 M/uL (4.40-5.70); RED CELL DISTRIBUTION WIDTH 16.9 % (11.5-14.5); WHITE BLOOD COUNT W/O DIFF 12.5 K/uL (4.2-12.2)
[2019-02-26 16:05] LABS: MEAN CORPUSCULAR HEMOGLOBIN 32.8 pg (27-33)
[2019-02-26 16:17] LABS: BLOOD UREA NITROGEN 8 mg/dL (8-23); CREATININE 0.9 mg/dL (0.7-1.2); EST GLOMERULAR FILTRATION RATE > 60 mL/min; INR 1.2; PARTIAL THROMBOPLASTIN TIME 27.9 SECONDS (24.5-39.1); PROTHROMBIN TIME (PATIENT) 12.4 SECONDS (9.5-12.1); TOTAL PROTEIN 5.6 g/dL (6.6-8.7)
[2019-02-26 16:19] LABS: GLUCOSE,RANDOM 159 mg/dL (74-109)
[2019-02-26 16:22] LABS: ALB/GLOB RATIO 1.7 (1.1-1.8); ALBUMIN 3.5 g/dL (4.0-5.0); ALKALINE PHOSPHATASE 196 U/L (40-129); ALT/SGPT 21 U/L (<41); AST/SGOT 31 U/L (10.0-50.0)
[2019-02-26] MEDS ORDERED: SOD CHLOR 0.9% WITH KCL 40MEQ 40 MEQ/1,000 ML IV.SOLN IV ONE (16:24)
[2019-02-26] MEDS ORDERED: TOPICAL LIDOCAINE W/ EPI 5 ML TOP ONE (16:35)
[2019-02-26] MEDS ORDERED: MAGNESIUM SULFATE 16 MEQ in 0.9 % SODIUM CHLORIDE 100ML 100 ML IV ONE (16:54)
--- NOTE | 2019-03-01 21:12 | CT SCAN REPORT ---
EXAM: CT SCAN HEAD WO CONTRAST HISTORY: MANY FALLS. TECHNIQUE: Helical CT scan of the head obtained without intravenous contrast. COMPARISON: CT head 11/25/2018. HAND DOMINANCE: Unknown. FINDINGS: Again noted is a small left frontoparietal subdural hematoma, which measures up to 5 mm in thickness, similar to previous examination. A small calcification is again seen. No new hemorrhage. No intraparenchymal hemorrhage. No mass effect or midline shift. No evidence of major vessel infarction. Ventricles are normal. Basal cisterns are patent. Calvarium is intact. Paranasal sinuses show a mucocele or a polyp in the left maxillary sinus. Middle ear cavities are well aerated. IMPRESSION: STABLE SMALL LEFT FRONTOPARIETAL SUBDURAL HEMATOMA. NO NEW INTRACRANIAL HEMORRHAGE. JOB NUMBER: [id number] [facility]
--- NOTE | 2019-03-01 21:23 | CT SCAN REPORT ---
EXAM: CT CERVICAL SPINE WO CONTRAST HISTORY: REPEATED FALLS. TECHNIQUE: Helical CT scan of the cervical spine obtained without intravenous contrast. Sagittal and coronary reformatted images obtained. COMPARISON: CT cervical spine 11/25/2018. ENCOUNTER: Initial. FINDINGS: Sagittal images of the cervical spine again show kyphosis at the cervicothoracic junction and anterior fusion of C6 and C7. The fusion hardware is intact and the fusion mass is intact. There is also fusion hardware anterior to C4 and C5. No malalignment of the cervical spine. Disc space disease is similar to previous exam. The craniocervical junction has normal alignment. C1-2 relationship is normal. No acute fractures are identified. No prevertebral soft tissue swelling. IMPRESSION: CHRONIC CHANGES OF THE CERVICAL SPINE WITH DEGENERATIVE AND POSTOPERATIVE CHANGES. NO EVIDENCE OF ACUTE FRACTURE OR MALALIGNMENT. JOB NUMBER: [id number] [facility]
== END 2019-02-26 19:05 | disposition short-term general hospital (02) ==
LOC: ER 15:27
DX: S01.01XA Laceration without foreign body of scalp, initial encounter (principal); S00.03XA Contusion of scalp, initial encounter; I48.91 Unspecified atrial fibrillation; I49.3 Ventricular premature depolarization; R53.81 Other malaise; I25.10 Atherosclerotic heart disease of native coronary artery without angina pectoris; I42.0 Dilated cardiomyopathy; J44.9 Chronic obstructive pulmonary disease, unspecified; G89.29 Other chronic pain; M54.5 Low back pain; M54.2 Cervicalgia; I10 Essential (primary) hypertension; F17.210 Nicotine dependence, cigarettes, uncomplicated; Z95.810 Presence of automatic (implantable) cardiac defibrillator; Z91.81 History of falling; W19.XXXA Unspecified fall, initial encounter; Y92.009 Unspecified place in unspecified non-institutional (private) residence as the place of occurrence of the external cause
CPT/HCPCS: 12001; 70450; 72125; 72141; 80053; 83735; 83880; 84484; 85027; 85610; 85730; 93005; 93010; 96365; 96366; 96368; 99284; 99285

== ENCOUNTER 2019-04-04 23:18 | Emergency (ER) | payer MEDICARE ==
--- NOTE | 2019-04-04 23:35 | Emergency Department Record ---
History of Present Illness - General Chief Complaint: Fall Injury Stated Complaint: FALL Time Seen by Provider: 04/04/19 23:24 Source: Patient Mode of Arrival: Ambulatory Limitations: No limitations - History of Present Illness Initial Comments: 69 yo male presents to ED for evaluation following a fall that occurred approximately 12 hours ago. Patient reports history of frequent falls, reports that he stood up too quickly resulting in a fall onto the right side of the posterior chest wall. Patient denies injury to the head or neck, denies use of anticoagulation medications. Patient ambulated into the ED with stable gait, denies extremity, hip, or pelvis injury. MD Complaint: Fall Onset/Timin -: Hour(s) Fall From: Standing When Fall Occurred: Other Fall Witnessed: No Place Fall Occurred: Home Loss of Consciousness: None Prolonged Down Time?: No Symptoms Prior to Fall: None Location: Chest, Abdomen Severity scale (1-10): 8 Quality: Aching Context: Tripped/slipped Associated Symptoms: Denies - Ivan Coma Scale Eye Response: (4) Open spontaneously Motor Response: (6) Obeys commands Verbal Response: (5) Oriented [place] Total: 15 - Related Data Previous Rx's Medication Instructions Recorded Aspirin Enteric-Coated [Ecotrin 81 mg PO DAILY tabec 12/04/18 (EC)] Allergies Allergy/AdvReac Type Severity Reaction Status Date / Time No Known Drug Allergies Allergy Verified 01/10/19 20:21 Travel Screening - Travel/Exposure Within Last 30 Days Have you traveled within the last 30 days?: No Review of Systems Constitutional: Denies: Chills, Fever, Malaise, Night sweats Eyes: Denies: Eye discharge, Eye pain ENT: Denies: Congestion, Ear pain, Epistaxis Respiratory: Denies: Cough, Dyspnea Cardiovascular: Reports: Chest pain (Right posterior chest wall pain symptoms ). Denies: Dyspnea on exertion Endocrine: Denies: Fatigue, Heat or cold intolerance Gastrointestinal: Denies: Abdominal pain, Constipation, Nausea, Vomiting Genitourinary: Denies: Incontinence, Retention Musculoskeletal: Denies: Arthralgia, Back pain Skin: Denies: Bruising, Change in color Neurological: Denies: Abnormal gait, Confusion, Headache, Seizure Psychiatric: Denies: Anxiety Hematological/Lymphatic: Denies: Anemia, Blood Clots Past Medical History - SOCIAL HISTORY Smoking Status: Current every day smoker Alcohol Use: None Drug Use: None - RESPIRATORY Hx Respiratory Disorders: Yes Hx Bronchitis: Yes Hx COPD: Yes Hx Dyspnea: Yes Hx Sleep Apnea: Yes Comment:: wears O2 at al times - CARDIOVASCULAR Hx Cardio Disorders: Yes Hx CHF: Yes Hx Hypertension: Yes Comment:: high cholesterol - NEURO Hx Neuro Disorders: No - GI Hx GI Disorders: Yes Comment:: constipation-pain medication related - Hx Genitourinary Disorders: No - ENDOCRINE Hx Endocrine Disorders: No Hx Diabetes: No Hx Thyroid Disease: No - MUSCULOSKELETAL Hx Musculoskeletal Disorders: Yes Hx Arthritis: Yes - PSYCH Hx Psych Problems: Yes Hx Anxiety: Yes - HEMATOLOGY/ONCOLOGY Hx Hematology/Oncology Disorders: Yes Hx Blood Disorders: Yes Family Medical History Any Significant Family History?: Yes Hx Alcohol Use: Mother Hx Diabetes: Father Physical Exam - General General Appearance: Alert, Oriented x3, Cooperative, Mild distress Limitations: No limitations - Head Head exam: Atraumatic, Normocephalic, Normal inspection Head exam detail: negative: Abrasion, Contusion, Law's sign, General tenderness, Hematoma, Laceration - Eye Eye exam: Normal appearance. negative: Conjunctival injection, Periorbital swelling, Periorbital tenderness, Scleral icterus - ENT Ear exam: negative: Auricular hematoma, Auricular trauma Nasal Exam: negative: Active bleeding, Discharge, Dried blood, Foreign body Mouth exam: negative: Drooling, Laceration, Muffled voice, Tongue elevation - Neck Neck exam: Normal inspection. negative: Meningismus, Tenderness - Respiratory Respiratory exam: Chest wall tenderness (TTP posterior right chest wall on ex amination, no crepitation noted. No ecchymosis or abrasions are noted on examination.). negative: Decreased breath sounds, Rales, Respiratory distress, Rhonchi - Cardiovascular Cardiovascular Exam: Regular rate, Normal rhythm, Normal heart sounds - GI/Abdominal GI/Abdominal exam: Soft. negative: Rebound, Rigid, Tenderness - Rectal Rectal exam: Deferred - exam: Deferred - Extremities Extremities exam: Normal inspection. negative: Pedal edema, Tenderness - Back Back exam: Reports: CVA tenderness (R). Denies: CVA tenderness (L) - Neurological Neurological exam: Alert, Normal gait, Oriented X3 - Psychiatric Psychiatric exam: Normal affect, Normal mood - Skin Skin exam: Normal color. negative: Abrasion Type of lesion: negative: abrasion Course Vital Signs 04/04/19 23:25 Temperature 98.2 F Pulse Rate [ 114 H Left] Respiratory 14 Rate Blood Pressure 133/66 [Left Arm] Pulse Ox 91 L - Reevaluation(s) Reevaluation #1: 04/04/19 23:36 Patient was seen and examined CT imaging of the chest, abdomen, and pelvis was ordered. Will hold narcotic pain medication at this time as the patient appears comfortable at rest, drove himself to the ED this evening. Reevaluation #2: 04/05/19 00:26 Patient is back from CT imaging, IV analgesia and basic labs ordered at this time pending CT imaging results. Reevaluation #3: 04/05/19 01:03 CT Chest: T10 vertebral body fracture with approximately 10 mm separation from the anterioinferior veterbral corner fragment, may be injury to the anterior longitudianl ligament. Acute fractures of the right 8th-10th ribs, left 11th rib, and right 12th rib. Small bialteral pleural effusions Emphysema No visceral injury is identified. CT Abdomen/Pelvis: No acute visceral or bony injury identified Laboratory studies were reviewed and appear grossly unremarkable for an acute process. Patient was updated on all results, will initiate transfer to [facility] per patient preference for Trauma evaluation. Reevaluation #4: 04/05/19 01:46 Case was discussed with Dr. Limon and Dr. Mclean, will accept the patient for further Trauma evaluation. Reevaluation #5: 04/05/19 01:49 Case was discussed with Dr. Ramirez, no further recommendations given at this time. EMS contacted for transport. Medical Decision Making - Lab Data Result diagrams: 04/05/19 00:30 04/05/19 00:30 Critical Care Time Critical Care Time: Yes Total Critical Care Time: 45 Critical Care Time: Evaluation and treatment for delayed Traumatic injury of the ches/abdomen, CT imaging and laboratory interpretation, consultation with neurosurgery, trauma surgery, and ER for transfer to higher level of care. Multiple reassessments and updates with the patient as well. Disposition Disposition: Transfer Clinical Impression: Multiple rib fractures Qualifiers: Encounter type: initial encounter Fracture type: closed Laterality: right Qualified Code(s): S22.41XA - Multiple fractures of ribs, right side, initial encounter for closed fracture T10 vertebral fracture Qualifiers: Encounter type: initial encounter Fracture type: closed Fracture morphology: unspecified fracture morphology Qualified Code(s): S22.079A - Unspecified fracture of T9-T10 vertebra, initial encounter for closed fracture Fall with injury Qualifiers: Encounter type: initial encounter Qualified Code(s): W19.XXXA - Unspecified fall, initial encounter Disposition: Acute Care Hospital Transfer Transfer To: [facility] Reason For Transfer: T10 veterbral body fracture, multiple rib fractures Accepting Physician: Ashly Mclean Time Discussed w/Accepting Physician: :47 Condition: (2) Stable Forms: Patient Portal Access Time of Disposition: :47 Quality - Quality Measures Quality Measures: N/A - Blood Pressure Screening Does Patient Have Any of the Following: No Blood Pressure Classification: Pre-Hypertensive BP Reading Systolic Measurement: 133 Diastolic Measurement: 66 Screening for High Blood Pressure: < Pre-Hypertensive BP, F/U Documented > [G8950] Pre-Hypertensive Follow-up Interventions: Referral to alternative/primary care provider.
[2019-04-05] MEDS ORDERED: HYDROMORPHONE HCL 2 MG/ML VIAL IVP ONE (00:25)
[2019-04-05] MEDS ORDERED: ONDANSETRON HCL IV 4 MG/2 ML VIAL IVP ONE (00:25)
[2019-04-05] MEDS ORDERED: 0.9 % SODIUM CHLORIDE 1000ML 500 ML IV SCH (00:30)
[2019-04-05 00:58] LABS: ABSOLUTE NEUTROPHIL COUNT 8.83; HEMATOCRIT 44.6 % (42.0-52.0); HEMOGLOBIN 14.1 gm/dl (14.0-18.0); MEAN CELL VOLUME 101.1 fl (81-97); MEAN CORPUSCULAR HGB CONC 31.6 g/dl (32-36); MEAN PLATELET VOLUME 10.4 fl (7.4-10.4); PLATELET COUNT 203 K/uL (130-400); RED BLOOD COUNT 4.41 M/uL (4.40-5.70); RED CELL DISTRIBUTION WIDTH 14.7 % (11.5-14.5)
[2019-04-05 01:08] LABS: BLOOD UREA NITROGEN 11 mg/dL (8-23); CREATININE 0.9 mg/dL (0.7-1.2); EST GLOMERULAR FILTRATION RATE > 60 mL/min
[2019-04-05 01:09] LABS: TOTAL PROTEIN 6.6 g/dL (6.6-8.7)
[2019-04-05 01:11] LABS: GLUCOSE,RANDOM 162 mg/dL (74-109)
[2019-04-05 01:13] LABS: ALT/SGPT 27 U/L (<41); AST/SGOT 41 U/L (10.0-50.0)
[2019-04-05 01:14] LABS: ALB/GLOB RATIO 1.4 (1.1-1.8); ALBUMIN 3.8 g/dL (4.0-5.0); ALKALINE PHOSPHATASE 174 U/L (40-129)
--- NOTE | 2019-04-06 20:57 | CT SCAN REPORT ---
EXAM: CT SCAN CHEST WO CONTRAST HISTORY: FELL TODAY AND LANDED ON THE RIGHT SIDE. RIGHT RIB AND HIP PAIN. TECHNIQUE: Standard CT imaging of the chest was performed without contrast. COMPARISON: 11/25/2018. ENCOUNTER: Initial. FINDINGS: The heart is enlarged. Pacemaker leads are present. There is no pericardial effusion. There are mild atherosclerotic calcifications of the aorta with no aneurysm. There are mildly enlarged mediastinal lymph nodes, which appear unchanged from the previous examination. There is a small right pleural effusion. A tiny amount of left pleural fluid is also present. There is mild dependent atelectasis within both lungs. There are no acute pulmonary infiltrates. There is no pneumothorax. Emphysematous changes are present within the upper lung horner. There is a mildly displaced fracture involving the anterior inferior corner of the T10 vertebral body. The mild displacement raises the possibility of injury to the anterior longitudinal ligament. No other spine fractures are identified. There are acute fractures through the posterolateral aspects of the right eighth through eleventh ribs. The ninth rib fracture is mildly displaced. The remaining ribs appear intact. There is bilateral gynecomastia. The axillary regions are normal. Pneumobilia is noted. The remaining portions of the upper abdomen are unremarkable. IMPRESSION: 1. ACUTE FRACTURES OF THE POSTEROLATERAL ASPECTS OF THE RIGHT EIGHTH THROUGH ELEVENTH RIBS. 2. ACUTE FRACTURE INVOLVING THE ANTERIOR INFERIOR CORNER OF THE T10 VERTEBRAL BODY WITH MILD DISPLACEMENT OF THE CORNER FRACTURE. THIS RAISES THE QUESTION OF ANTERIOR LONGITUDINAL LIGAMENT INJURY. 3. SMALL BILATERAL PLEURAL EFFUSIONS, RIGHT GREATER THAN LEFT. 4. STABLE MILDLY ENLARGED MEDIASTINAL LYMPH NODES. 5. COPD. 6. BILATERAL GYNECOMASTIA. JOB NUMBER: [id number] [facility]
--- NOTE | 2019-04-06 21:12 | CT SCAN REPORT ---
EXAM: CT SCAN ABDOMEN/PELVIS WO CONTRAST HISTORY: RIGHT-SIDED CHEST, ABDOMINAL, AND HIP PAIN STATUS POST FALL. TECHNIQUE: Standard CT imaging of the abdomen and pelvis was performed without contrast. COMPARISON: Chest CT from the same date and previous abdominal CT scan dated 11/25/2018. ENCOUNTER: Initial. FINDINGS: There are small bilateral pleural effusions, right greater than left. Acute fractures are noted involving the posterolateral aspects of the right eighth, ninth, and tenth ribs with fractures also noted within the posterior aspects of the right eleventh and twelfth ribs. An acute mildly displaced fracture is noted involving the anterior inferior corner of the T10 vertebral body, as noted on the chest CT report. No other acute fractures are identified. Extensive degenerative changes are present within the spine. Postsurgical changes are noted within the lumbar region. A medication infusion pump tube is present extending into the thoracic region. Pneumobilia is present. The liver parenchyma is unremarkable. Air is also present within the gallbladder lumen. There are no calcified stones. There is no biliary ductal dilatation. The pancreas appears mildly atrophic. The spleen and a small accessory spleen are normal. The adrenal glands are unremarkable. Small cysts are faintly visualized within both kidneys. There are tiny nonobstructing intrarenal calculi bilaterally. The largest is located within the left kidney and measures 3 mm. There is no obstructing calculus or hydronephrosis. Atherosclerotic changes are present within the aorta. There is no aneurysm. There is no retroperitoneal lymphadenopathy. The large and small bowel loops appear normal. There are no focal inflammatory changes. There is no free intraperitoneal air or fluid. The appendix is visualized and is unremarkable. There is a small fat-containing umbilical hernia. The abdominal wall is otherwise unremarkable. The urinary bladder and prostate gland appear normal. Degenerative changes are present within both hips. IMPRESSION: 1. NO ACUTE PATHOLOGY WITHIN THE ABDOMEN OR PELVIS. 2. FRACTURES OF THE RIGHT EIGHTH THROUGH TWELFTH RIBS. 3. MILDLY DISPLACED FRACTURE INVOLVING THE ANTERIOR INFERIOR CORNER OF THE T10 VERTEBRAL BODY, DISCUSSED IN THE CHEST CT REPORT. 4. TINY BILATERAL PLEURAL EFFUSIONS, RIGHT GREATER THAN LEFT. 5. NONOBSTRUCTING INTRARENAL CALCULI BILATERALLY. 6. ADDITIONAL CHRONIC FINDINGS, DETAILED ABOVE. [facility]BER: [id number] [facility]
== END 2019-04-05 02:31 | disposition short-term general hospital (02) ==
LOC: ER 23:18
DX: S22.41XA Multiple fractures of ribs, right side, initial encounter for closed fracture (principal); S22.079A Unspecified fracture of T9-T10 vertebra, initial encounter for closed fracture; M25.551 Pain in right hip; W01.10XA Fall on same level from slipping, tripping and stumbling with subsequent striking against unspecified object, initial encounter; Y92.009 Unspecified place in unspecified non-institutional (private) residence as the place of occurrence of the external cause; Z91.81 History of falling; I50.9 Heart failure, unspecified; I10 Essential (primary) hypertension; J44.9 Chronic obstructive pulmonary disease, unspecified; F17.210 Nicotine dependence, cigarettes, uncomplicated; Z99.81 Dependence on supplemental oxygen
CPT/HCPCS: 99285 ×2; 96374; 96375; 80053; 85027; 71250; 74176; J2405; J1170; J7030

== ENCOUNTER 2019-05-13 20:05 | Emergency (ER) | payer MEDICARE ==
--- NOTE | 2019-05-13 20:25 | Emergency Department Record ---
History of Present Illness - General Chief Complaint: Back Pain/Injury Stated Complaint: BACK PAIN Time Seen by Provider: 05/13/19 20:09 Source: Patient Mode of Arrival: Ambulatory Limitations: No limitations - History of Present Illness Initial Comments: 69 yo male presents to ED for evaluation of "pain all over" after his morphine pump was switched to saline yesterday by his pain specialist. Patient also reports that his oxycodone was stopped 2 weeks ago, was switched to Suboxone that he has taken (2) pills of that has not helped with his pain symptoms. Patient denies recurrent fall or injury, reports that he is unable to sit still due to his pain symptoms. MD Complaint: Other Onset/Timin -: Days(s) Radiation: None Severity: Severe Quality: Aching Consistency: Constant Improves With: None Worsens With: None Associated Symptoms: Denies other symptoms - Related Data Previous Rx's Medication Instructions Recorded Aspirin Enteric-Coated [Ecotrin 81 mg PO DAILY tabec 12/04/18 (EC)] Allergies Allergy/AdvReac Type Severity Reaction Status Date / Time No Known Drug Allergies Allergy Verified 01/10/19 20:21 Review of Systems Constitutional: Denies: Chills, Fever, Malaise, Night sweats Eyes: Denies: Eye discharge, Eye pain ENT: Denies: Congestion, Ear pain, Epistaxis Respiratory: Denies: Cough, Dyspnea Cardiovascular: Denies: Chest pain, Dyspnea on exertion Endocrine: Denies: Fatigue, Heat or cold intolerance Gastrointestinal: Denies: Abdominal pain, Nausea, Vomiting Genitourinary: Denies: Incontinence, Retention Musculoskeletal: Reports: Arthralgia, Myalgia. Denies: Back pain, Gout, Joint swelling Skin: Denies: Bruising, Change in color Neurological: Denies: Abnormal gait, Confusion, Headache, Seizure Psychiatric: Denies: Anxiety Hematological/Lymphatic: Denies: Anemia, Blood Clots Past Medical History - SOCIAL HISTORY Smoking Status: Current every day smoker Drug Use: None - RESPIRATORY Hx Respiratory Disorders: Yes Hx Bronchitis: Yes Hx COPD: Yes Hx Dyspnea: Yes Hx Sleep Apnea: Yes Comment:: wears O2 at al times - CARDIOVASCULAR Hx Cardio Disorders: Yes Hx CHF: Yes Hx Hypertension: Yes Comment:: high cholesterol - NEURO Hx Neuro Disorders: No - GI Hx GI Disorders: Yes Comment:: constipation-pain medication related - Hx Genitourinary Disorders: No - ENDOCRINE Hx Endocrine Disorders: No Hx Diabetes: No Hx Thyroid Disease: No - MUSCULOSKELETAL Hx Musculoskeletal Disorders: Yes Hx Arthritis: Yes - PSYCH Hx Psych Problems: Yes Hx Anxiety: Yes - HEMATOLOGY/ONCOLOGY Hx Hematology/Oncology Disorders: Yes Hx Blood Disorders: Yes Family Medical History Hx Alcohol Use: Mother Hx Diabetes: Father Physical Exam - General General Appearance: Alert, Oriented x3, Cooperative, Moderate distress, Other (Patient appears uncomfortable, unable to sit still on examination.) Limitations: No limitations - Head Head exam: Atraumatic, Normocephalic, Normal inspection Head exam detail: negative: Abrasion, Contusion, Law's sign, General tenderness, Hematoma, Laceration - Eye Eye exam: Normal appearance. negative: Conjunctival injection, Periorbital swelling, Periorbital tenderness, Scleral icterus - ENT Ear exam: negative: Auricular hematoma, Auricular trauma Nasal Exam: negative: Active bleeding, Discharge, Dried blood, Foreign body Mouth exam: negative: Drooling, Laceration, Muffled voice, Tongue elevation - Neck Neck exam: Normal inspection. negative: Meningismus, Tenderness - Respiratory Respiratory exam: Normal lung sounds bilaterally. negative: Rales, Respiratory distress, Rhonchi, Stridor - Cardiovascular Cardiovascular Exam: Normal rhythm, Normal heart sounds, Tachycardia - GI/Abdominal GI/Abdominal exam: Soft. negative: Rebound, Rigid, Tenderness - Rectal Rectal exam: Deferred - exam: Deferred - Extremities Extremities exam: Normal inspection. negative: Tenderness - Back Back exam: Denies: CVA tenderness (R), CVA tenderness (L) - Neurological Neurological exam: Alert, Oriented X3 - Psychiatric Psychiatric exam: Normal affect, Normal mood - Skin Skin exam: Normal color. negative: Abrasion Type of lesion: negative: abrasion Course - Reevaluation(s) Reevaluation #1: 05/13/19 20:24 Patient was seen and examined, unable to sit still, mildly tachycardic. Examination appears c/w opiate withdrawal. On-call for Dr. Washington contacted for consultation. Reevaluation #2: 05/13/19 20:42 Case was discussed with Shashi PITT at [facility], reports that he discussed opiate withdrawal with the patient at length regarding opiate withdrawal and that his Suboxone would be titrated to patient need. 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 Reevaluation #3: 05/13/19 20:59 Neither [facility] nor [facility] in [place] have 2 mg Suboxone tablets in stock. Patient's symptoms appears improved, appears stable for discharge at this time with instructions to call Dr. Washington's office tomorrow between noon and 13:00. Disposition Disposition: Discharge Clinical Impression: Opiate withdrawal Disposition: Home, Self-Care Condition: (2) Stable Instructions: Opioid Withdrawal (ED) Additional Instructions: Return to ED if your symptoms worsen or if you have any concerns. Continue Suboxone as directed. Call Dr. Washington tomorrow for further recommendations regarding your pain symptoms. Forms: Patient Portal Access Time of Disposition: 21:02 Quality - Quality Measures Quality Measures: N/A - Blood Pressure Screening Does Patient Have Any of the Following: Active Dx of HTN Blood Pressure Classification: Pre-Hypertensive BP Reading Systolic Measurement: 133 Diastolic Measurement: 72 Screening for High Blood Pressure: Patient Exclusion, Hx of HTN [G9744]
[2019-05-13] MEDS ORDERED: HYDROMORPHONE HCL 2 MG/ML VIAL IM ONE (20:37)
== END 2019-05-13 21:47 | disposition home or self-care (01) ==
LOC: ER 20:05
DX: F11.23 Opioid dependence with withdrawal (principal); M54.9 Dorsalgia, unspecified; I10 Essential (primary) hypertension; J44.9 Chronic obstructive pulmonary disease, unspecified; F17.210 Nicotine dependence, cigarettes, uncomplicated; Z99.81 Dependence on supplemental oxygen
CPT/HCPCS: 96372; 99284

== ENCOUNTER 2019-05-17 19:29 | Emergency (ER) | payer MEDICARE ==
--- NOTE | 2019-05-17 20:08 | Emergency Department Record ---
History of Present Illness - General Chief Complaint: Neck Injury/Pain Stated Complaint: NECK PAIN/ Time Seen by Provider: 05/17/19 19:41 Source: Patient Mode of Arrival: Ambulatory Limitations: No limitations - History of Present Illness Initial Comments: 69 yo male presents to ED for evaluation of neck pain symptoms he reports stem from a fall 1 month ago resulting in thoracic spine and rib fractures. Patient reports that he denied injury to the head or neck at that time, reports since his fall that his neck pain symptoms have not improved. Patient has recently been transitioned from Hydrocodone and morphine pump to Suboxone this past week, reports pain symptoms overall worse than his baseline. Patient denies numbness, tingling, or extremity weakness symptoms. MD Complaint: Neck pain Onset/Timin -: Days(s) Place: Home Severity: Moderate Severity scale (1-10): 7 Quality: Aching, Sharp Consistency: Constant, Intermittent Improves With: None Worsens With: None Context: Fall Associated Symptoms: None Treatment Prior to Arrival Comment:: home medications - Related Data Home Medications Medication Instructions Recorded Confirmed Last Taken Albuterol Sulfate [Proair Hfa] 1 - 2 puff IH .EVERY 4-6 HOURS PRN 05/17/19 05/17/19 1 Day Ago ~05/16/19 Buprenorphine HCl/Naloxone HCl 1 each SL BID 05/17/19 05/17/19 1 Day Ago [Buprenorphn-Naloxn 2-0.5 mg Sl] ~05/16/19 Fluticasone/Umeclidin/Vilanter 1 each IH BID 05/17/19 05/17/19 1 Day Ago [Trelegy Ellipta 100-62.5-25] ~05/16/19 Trazodone HCl 50 mg PO QHS 05/17/19 05/17/19 1 Day Ago ~05/16/19 Previous Rx's Medication Instructions Recorded Aspirin Enteric-Coated [Ecotrin 81 mg PO DAILY tabec 12/04/18 (EC)] Allergies Allergy/AdvReac Type Severity Reaction Status Date / Time No Known Drug Allergies Allergy Verified 05/17/19 19:49 Travel Screening - Travel/Exposure Within Last 30 Days Have you traveled within the last 30 days?: No - Travel/Exposure Within Last Year Have you traveled outside the [place] in the last year?: No - Additonal Travel Details Have you been exposed to anyone with a communicable illness?: No - Travel Symptoms Symptom Screening: None Review of Systems Constitutional: Denies: Chills, Fever, Malaise, Night sweats Eyes: Denies: Eye discharge, Eye pain ENT: Denies: Congestion, Ear pain, Epistaxis Respiratory: Denies: Cough, Dyspnea Cardiovascular: Denies: Chest pain, Dyspnea on exertion Endocrine: Denies: Fatigue, Heat or cold intolerance Gastrointestinal: Denies: Abdominal pain, Nausea, Vomiting Genitourinary: Denies: Incontinence, Retention Musculoskeletal: Reports: Neck pain. Denies: Arthralgia, Back pain, Gout, Joint swelling Skin: Denies: Bruising, Change in color Neurological: Denies: Abnormal gait, Confusion, Headache, Seizure Psychiatric: Denies: Anxiety Hematological/Lymphatic: Denies: Anemia, Blood Clots Past Medical History - SOCIAL HISTORY Smoking Status: Current every day smoker Alcohol Use: None Drug Use: None - RESPIRATORY Hx Respiratory Disorders: Yes Hx Bronchitis: Yes Hx COPD: Yes Hx Dyspnea: Yes Hx Sleep Apnea: Yes Comment:: wears O2 at al times - CARDIOVASCULAR Hx Cardio Disorders: Yes Hx CHF: Yes Hx Hypertension: Yes Comment:: high cholesterol - NEURO Hx Neuro Disorders: No - GI Hx GI Disorders: Yes Comment:: constipation-pain medication related - Hx Genitourinary Disorders: No - ENDOCRINE Hx Endocrine Disorders: No Hx Diabetes: No Hx Thyroid Disease: No - MUSCULOSKELETAL Hx Musculoskeletal Disorders: Yes Hx Arthritis: Yes - PSYCH Hx Psych Problems: Yes Hx Anxiety: Yes - HEMATOLOGY/ONCOLOGY Hx Hematology/Oncology Disorders: Yes Hx Blood Disorders: Yes Family Medical History Any Significant Family History?: Yes Hx Alcohol Use: Mother Hx Diabetes: Father Physical Exam - General General Appearance: Alert, Oriented x3, Cooperative, Mild distress Limitations: No limitations - Head Head exam: Atraumatic, Normocephalic, Normal inspection Head exam detail: negative: Abrasion, Contusion, Law's sign, General tenderness, Hematoma, Laceration - Eye Eye exam: Normal appearance. negative: Conjunctival injection, Periorbital swelling, Periorbital tenderness, Scleral icterus - ENT Ear exam: negative: Auricular hematoma, Auricular trauma Nasal Exam: negative: Active bleeding, Discharge, Dried blood, Foreign body Mouth exam: negative: Drooling, Laceration, Muffled voice, Tongue elevation - Neck Neck exam: Tenderness (Paravertebral TTP to the muscles bilaterally). negative: Meningismus - Respiratory Respiratory exam: Normal lung sounds bilaterally. negative: Rales, Respiratory distress, Rhonchi, Stridor - Cardiovascular Cardiovascular Exam: Normal rhythm, Normal heart sounds, Tachycardia - GI/Abdominal GI/Abdominal exam: Soft. negative: Rebound, Rigid, Tenderness - Rectal Rectal exam: Deferred - exam: Deferred - Extremities Extremities exam: negative: Pedal edema, Tenderness - Back Back exam: Denies: CVA tenderness (R), CVA tenderness (L) - Neurological Neurological exam: Alert, Normal gait, Oriented X3 - Psychiatric Psychiatric exam: Normal affect, Normal mood - Skin Skin exam: Normal color. negative: Abrasion Type of lesion: negative: abrasion Course Vital Signs 05/17/19 19:45 Temperature 98.5 F Pulse Rate [ 124 H Left] Respiratory 16 Rate Blood Pressure 133/88 [Left] Pulse Ox 96 - Reevaluation(s) Reevaluation #1: 05/17/19 21:22 CT Cervical Spine: Multilevel degenerative changes No acute fracture or subluxation Patient was updated on all results, appears stable for discharge to follow-up with his pain specialist tomorrow with scheduled. Disposition Disposition: Discharge Clinical Impression: Chronic arthritis Disposition: Home, Self-Care Condition: (2) Stable Instructions: Osteoarthritis (ED) Additional Instructions: Return to ED if your symptoms worsen or if you have any concerns. Continue Suboxone as prescribed. Follow-up with your pain specialist tomorrow as scheduled. Forms: Patient Portal Access Time of Disposition: 21:24 Quality - Quality Measures Quality Measures: N/A - Blood Pressure Screening Does Patient Have Any of the Following: Active Dx of HTN Blood Pressure Classification: Pre-Hypertensive BP Reading Systolic Measurement: 133 Diastolic Measurement: 88 Screening for High Blood Pressure: Patient Exclusion, Hx of HTN [G9744]
--- NOTE | 2019-05-18 12:19 | CT SCAN REPORT ---
EXAM: EMERGENCY CT OF THE CERVICAL SPINE WITHOUT CONTRAST HISTORY: PATIENT FELL A MONTH AGO, CHRONIC ARTHRITIS. TECHNIQUE: Noncontrast CT of the cervical spine was obtained. FINDINGS: There is a cyst or polyp along the medial wall of the left maxillary antrum, also present previously. No apical pneumothorax evident. On the standard axial images, because of the patient's positioning, the images become almost coronal in anatomic position in the lower cervical spine. The images are reformatted at the PACS workstation in more standard anatomic axial planes with then more standard orthogonal, sagittal and coronal planes. As visualized no definite acute fracture of the cervical spine identified. There is again seen to be anterior fusion at the C6-C7 interspace as before. There also appears to be some form of fusion device within the bodies and C4 and C5 as before. Prominent degenerative change at the odontoid-anterior arch of C1 articulation. Cleft at the spinous process of T1 is probably developmental although could be due to old injury. This was the case previously as well. Some ligamentous calcification is present posteriorly in the mid cervical spine at the approximate C5 level. No prevertebral soft tissue swelling identified. Loss of lordosis likely due to combination of the multiple fusions as well as positioning. IMPRESSION: 1. NO DEFINITE ACUTE FRACTURE OR SUBLUXATION SEEN IN THE CERVICAL SPINE. 2. FUSION AT THE C4-C5 AND C6-C7 LEVELS BEFORE. 3. MULTILEVEL DEGENERATIVE CHANGE IN THE CERVICAL SPINE AGAIN EVIDENT. 4. SOME LIGAMENTOUS CALCIFICATION POSTERIORLY. JOB NUMBER: [id number] [facility]
== END 2019-05-17 21:31 | disposition home or self-care (01) ==
LOC: ER 19:29
DX: M54.2 Cervicalgia (principal); M46.92 Unspecified inflammatory spondylopathy, cervical region; J44.9 Chronic obstructive pulmonary disease, unspecified; F17.210 Nicotine dependence, cigarettes, uncomplicated; E78.00 Pure hypercholesterolemia, unspecified; I10 Essential (primary) hypertension
CPT/HCPCS: 72125; 99284

== ENCOUNTER 2019-06-22 22:27 | Emergency (ER) | payer MEDICARE, MEDICAID ==
--- NOTE | 2019-06-22 22:35 | Emergency Department Record ---
History of Present Illness - General Chief Complaint: Altered Mental Status Stated Complaint: TOSHA Time Seen by Provider: 06/22/19 22:29 Source: EMS Mode of Arrival: EMS Limitations: No limitations - History of Present Illness Initial Comments: 69 yo oxygen dependent male presents to ED for evaluation after being found in his vehicle unresponsive with an empty oxygen tank. Patient reports that he went out to get cigarettes, upon getting back into his car, became more short of breath and became unresponsive. Patient was found to be 78% on RA upon EMS arrival, improved with 12 L NC over 20 minute transport time. Patient has a history of chronic pain as well, recent was switched back to Morphine from his suboxone. Patient denies shortness of breath on arrival. Patient had accu check 180 per EMS. MD Complaint: Altered mental status Onset/Timin -: Hour(s) Severity: Moderate Consistency: Now resolved Context: COPD Associated Symptoms: Denies other symptoms - [place] Coma Scale Eye Response: (4) Open spontaneously Motor Response: (6) Obeys commands Verbal Response: (5) Oriented [place] Total: 15 - Related Data Previous Rx's Medication Instructions Recorded Aspirin Enteric-Coated [Ecotrin 81 mg PO DAILY tabec 12/04/18 (EC)] Allergies Allergy/AdvReac Type Severity Reaction Status Date / Time No Known Drug Allergies Allergy Verified 06/22/19 22:29 Review of Systems Constitutional: Denies: Chills, Fever, Malaise, Night sweats Eyes: Denies: Eye discharge, Eye pain ENT: Denies: Congestion, Ear pain, Epistaxis Respiratory: Reports: Dyspnea. Denies: Cough, Hemoptysis Cardiovascular: Denies: Chest pain, Edema, Palpitations Endocrine: Denies: Fatigue, Heat or cold intolerance Gastrointestinal: Denies: Abdominal pain, Nausea, Vomiting Genitourinary: Denies: Incontinence, Retention Musculoskeletal: Denies: Arthralgia, Back pain Skin: Denies: Bruising, Change in color Neurological: Denies: Abnormal gait, Confusion, Headache, Seizure Psychiatric: Denies: Anxiety Hematological/Lymphatic: Denies: Anemia, Blood Clots Past Medical History - SOCIAL HISTORY Smoking Status: Current every day smoker Drug Use: None - RESPIRATORY Hx Respiratory Disorders: Yes Hx Bronchitis: Yes Hx COPD: Yes Hx Dyspnea: Yes Hx Sleep Apnea: Yes Comment:: wears O2 at al times - CARDIOVASCULAR Hx Cardio Disorders: Yes Hx CHF: Yes Hx Hypertension: Yes Comment:: high cholesterol - NEURO Hx Neuro Disorders: No - GI Hx GI Disorders: Yes Comment:: constipation-pain medication related - Hx Genitourinary Disorders: No - ENDOCRINE Hx Endocrine Disorders: No Hx Diabetes: No Hx Thyroid Disease: No - MUSCULOSKELETAL Hx Musculoskeletal Disorders: Yes Hx Arthritis: Yes - PSYCH Hx Psych Problems: Yes Hx Anxiety: Yes - HEMATOLOGY/ONCOLOGY Hx Hematology/Oncology Disorders: Yes Hx Blood Disorders: Yes Family Medical History Hx Alcohol Use: Mother Hx Diabetes: Father Physical Exam - General General Appearance: Alert, Oriented x3, Cooperative, Mild distress Limitations: No limitations - Head Head exam: Atraumatic, Normocephalic, Normal inspection Head exam detail: negative: Abrasion, Contusion, Law's sign, General tendern ess, Hematoma, Laceration - Eye Eye exam: Other (Pupils are 2 mm bilaterally). negative: Conjunctival injection, Periorbital swelling, Periorbital tenderness, Scleral icterus - ENT Ear exam: negative: Auricular hematoma, Auricular trauma Nasal Exam: negative: Active bleeding, Discharge, Dried blood, Foreign body Mouth exam: negative: Drooling, Laceration, Muffled voice, Tongue elevation - Neck Neck exam: Normal inspection. negative: Meningismus, Tenderness - Respiratory Respiratory exam: Decreased breath sounds. negative: Rales, Respiratory distress, Rhonchi, Stridor - Cardiovascular Cardiovascular Exam: Regular rate, Normal rhythm, Normal heart sounds - GI/Abdominal GI/Abdominal exam: Soft. negative: Rebound, Rigid, Tenderness - Rectal Rectal exam: Deferred - exam: Deferred - Extremities Extremities exam: Other (Chronic venous changes to the lower extremities bilaterally). negative: Pedal edema, Tenderness - Back Back exam: Denies: CVA tenderness (R), CVA tenderness (L) - Neurological Neurological exam: Alert, Normal gait, Oriented X3 - Psychiatric Psychiatric exam: Normal affect, Normal mood - Skin Skin exam: Normal color. negative: Abrasion Type of lesion: negative: abrasion Course - Reevaluation(s) Reevaluation #1: 06/22/19 22:37 EKG: Sinus tachycardia 101 Normal axis, normal intervals No acute ST-T wave changes Reevaluation #2: 06/22/19 23:55 Laboratory studies were reviewed and appear grossly unremarkable for an acute process except for the following: WBC 14.4 CO2 33 (likely chronic due to COPD) Patient resting comfortably on re-examination, will continue to monitor. Reevaluation #3: 06/23/19 00:07 CXR: Chronic changes Post-operative changes No acute process Reevaluation #4: 06/23/19 01:25 Patient has monitored for 3 hours without any desaturations resting comfortably and appears stable for discharge at this time. Medical Decision Making - Lab Data Result diagrams: 06/22/19 23:05 06/22/19 23:05 Disposition Disposition: Discharge Clinical Impression: COPD (chronic obstructive pulmonary disease) Qualifiers: COPD type: unspecified COPD Qualified Code(s): J44.9 - Chronic obstructive pulmonary disease, unspecified Opiate dependence Qualifiers: Substance use status: with unspecified opioid-induced disorder Qualified Code(s): F11.29 - Opioid dependence with unspecified opioid-induced disorder Disposition: Home, Self-Care Condition: (2) Stable Instructions: COPD (Chronic Obstructive Pulmonary Disease) (ED) Additional Instructions: Return to ED if your symptoms worsen or if you have any concerns. Follow-up with your family doctor in 3-5 days as directed. Forms: Patient Portal Access Time of Disposition: 01:28 Quality - Quality Measures Quality Measures: N/A - Blood Pressure Screening Does Patient Have Any of the Following: No Blood Pressure Classification: Normal BP Reading Systolic Measurement: 90 Diastolic Measurement: 53 Screening for High Blood Pressure: < Normal BP, F/U Not Required > [G8783]
[2019-06-22 23:12] LABS: ABSOLUTE NEUTROPHIL COUNT 12.65; BASO % 0.1 % (0-6); HEMATOCRIT 38.3 % (42.0-52.0); HEMOGLOBIN 12.3 gm/dl (14.0-18.0); LYMPH % 5.6 % (16-45); MEAN CELL VOLUME 97.2 fl (81-97); MEAN CORPUSCULAR HEMOGLOBIN 31.2 pg (27-33); MEAN CORPUSCULAR HGB CONC 32.1 g/dl (32-36); MEAN PLATELET VOLUME 9.9 fl (7.4-10.4); MONO % 6.2 % (0-9); PLATELET COUNT 150 K/uL (130-400); RED BLOOD COUNT 3.94 M/uL (4.40-5.70); RED CELL DISTRIBUTION WIDTH 14.7 % (11.5-14.5); WHITE BLOOD COUNT W/O DIFF 14.4 K/uL (4.2-12.2)
[2019-06-22 23:21] LABS: BLOOD UREA NITROGEN 13 mg/dL (8-23); CREATININE 0.9 mg/dL (0.7-1.2); EST GLOMERULAR FILTRATION RATE > 60 mL/min
[2019-06-22 23:22] LABS: TOTAL PROTEIN 5.9 g/dL (6.6-8.7)
[2019-06-22 23:24] LABS: GLUCOSE,RANDOM 131 mg/dL (74-109)
[2019-06-22 23:26] LABS: ALT/SGPT 8 U/L (<41)
[2019-06-22 23:27] LABS: ALB/GLOB RATIO 1.5 (1.1-1.8); ALBUMIN 3.5 g/dL (4.0-5.0); ALKALINE PHOSPHATASE 126 U/L (40-129); AST/SGOT 13 U/L (10.0-50.0)
[2019-06-22 23:57] LABS: ANISOCYTOSIS 1+; PLATELET ESTIMATE NORMAL (NORMAL); TOXIC GRANULATION 1+
--- NOTE | 2019-06-25 07:42 | RADIOLOGY REPORT ---
EXAM: CHEST, TWO VIEWS HISTORY: HISTORY OF LOW O2 LEVEL, 78% ON ARRIVAL. ALTERED MENTAL STATUS. TECHNIQUE: Two views of the chest were obtained. Comparison: Chest CT 04/05/19. FINDINGS: A few faint right basilar pulmonary opacities are present. Trace right pleural effusion suggested. The heart remains mildly enlarged. Single lead ICD is present. The remainder of the lungs appear clear. No pneumothorax. Generalized osteopenia. IMPRESSION: 1. FAINT RIGHT BASILAR ATELECTASIS VERSUS POTENTIAL AIR SPACE DISEASE WITH TRACE RIGHT PLEURAL EFFUSION. 2. CHRONIC CARDIOMEGALY. [facility]: [id number] [facility]
== END 2019-06-23 02:15 | disposition home or self-care (01) ==
LOC: ER 22:27
DX: J44.9 Chronic obstructive pulmonary disease, unspecified (principal); R41.82 Altered mental status, unspecified; F11.29 Opioid dependence with unspecified opioid-induced disorder; R06.02 Shortness of breath; I10 Essential (primary) hypertension; I50.9 Heart failure, unspecified; F17.210 Nicotine dependence, cigarettes, uncomplicated; Z99.81 Dependence on supplemental oxygen
CPT/HCPCS: 71046; 80053; 85027; 93005; 93010; 99284

== ENCOUNTER 2019-07-21 02:17 | Emergency (ER) | payer MEDICARE, MEDICAID ==
--- NOTE | 2019-07-21 02:41 | Emergency Department Record ---
History of Present Illness - General Chief Complaint: Fall Injury Stated Complaint: FALLING Time Seen by Provider: 07/21/19 02:23 Source: Patient Mode of Arrival: Ambulatory Limitations: No limitations - History of Present Illness Initial Comments: 69 yo male presents to ED for evaluation of "falling all the time". Patient reports "there isn't enough oxygen to my brain, causes muscle spasms, and I need a muscle relaxer". Patient denies chest discomfort, denies shortness of breath, and denies injury from his fall. Patient states "I need you to fix me so I don't fall anymore". Patient does have a walker but "falls when using it, so I use my cane". Patient reports that he was admitted to subacute rehab several months ago but "left too early". MD Complaint: Fall Onset/Timin -: Days(s) Fall From: Standing When Fall Occurred: Just prior to arrival Fall Witnessed: No Place Fall Occurred: Home Loss of Consciousness: None Prolonged Down Time?: No Symptoms Prior to Fall: None Context: History of frequent falls Associated Symptoms: Denies - Ivan Coma Scale Eye Response: (4) Open spontaneously Motor Response: (6) Obeys commands Verbal Response: (5) Oriented [place] Total: 15 - Related Data Allergies Allergy/AdvReac Type Severity Reaction Status Date / Time No Known Drug Allergies Allergy Verified 06/22/19 22:29 Travel Screening - Travel/Exposure Within Last 30 Days Have you traveled within the last 30 days?: No - Travel/Exposure Within Last Year Have you traveled outside the [place] in the last year?: No - Additonal Travel Details Have you been exposed to anyone with a communicable illness?: No - Travel Symptoms Symptom Screening: None Review of Systems Constitutional: Denies: Chills, Fever, Malaise, Night sweats, Weakness Eyes: Denies: Eye discharge, Eye pain ENT: Denies: Congestion, Ear pain, Epistaxis Respiratory: Denies: Cough, Dyspnea Cardiovascular: Denies: Chest pain, Dyspnea on exertion Endocrine: Denies: Fatigue, Heat or cold intolerance Gastrointestinal: Denies: Abdominal pain, Nausea, Vomiting Genitourinary: Denies: Incontinence, Retention Musculoskeletal: Denies: Arthralgia, Back pain Skin: Denies: Bruising, Change in color Neurological: Denies: Abnormal gait, Confusion, Headache, Seizure Psychiatric: Denies: Anxiety Hematological/Lymphatic: Denies: Anemia, Blood Clots Past Medical History - SOCIAL HISTORY Smoking Status: Current every day smoker Alcohol Use: None Drug Use: None - RESPIRATORY Hx Respiratory Disorders: Yes Hx Bronchitis: Yes Hx COPD: Yes Hx Dyspnea: Yes Hx Sleep Apnea: Yes Comment:: wears O2 at al times - CARDIOVASCULAR Hx Cardio Disorders: Yes Hx CHF: Yes Hx Hypertension: Yes Comment:: high cholesterol - NEURO Hx Neuro Disorders: No - GI Hx GI Disorders: Yes Comment:: constipation-pain medication related - Hx Genitourinary Disorders: No - ENDOCRINE Hx Endocrine Disorders: No Hx Diabetes: No Hx Thyroid Disease: No - MUSCULOSKELETAL Hx Musculoskeletal Disorders: Yes Hx Arthritis: Yes - PSYCH Hx Psych Problems: Yes Hx Anxiety: Yes - HEMATOLOGY/ONCOLOGY Hx Hematology/Oncology Disorders: Yes Hx Blood Disorders: Yes Family Medical History Any Significant Family History?: Yes Hx Alcohol Use: Mother Hx Diabetes: Father Physical Exam - General General Appearance: Alert, Oriented x3, Cooperative, No acute distress, Other (Chronically ill appearing, chronic degenerative changes of the spine) Limitations: No limitations - Head Head exam: Atraumatic, Normocephalic, Normal inspection Head exam detail: negative: Abrasion, Contusion, Lwa's sign, General tenderness, Hematoma, Laceration - Eye Eye exam: Normal appearance. negative: Conjunctival injection, Periorbital swelling, Periorbital tenderness, Scleral icterus - ENT Ear exam: negative: Auricular hematoma, Auricular trauma Nasal Exam: negative: Active bleeding, Discharge, Dried blood, Foreign body Mouth exam: negative: Drooling, Laceration, Muffled voice, Tongue elevation - Neck Neck exam: Normal inspection. negative: Meningismus, Tenderness - Respiratory Respiratory exam: Normal lung sounds bilaterally. negative: Rales, Respiratory distress, Rhonchi, Stridor - Cardiovascular Cardiovascular Exam: Regular rate, Normal rhythm, Normal heart sounds - GI/Abdominal GI/Abdominal exam: Soft. negative: Rebound, Rigid, Tenderness - Rectal Rectal exam: Deferred - exam: Deferred - Extremities Extremities exam: negative: Calf tenderness, Pedal edema, Tenderness - Back Back exam: Reports: Other (Chronic degenerative changes to the spine). Denies: CVA tenderness (R), CVA tenderness (L) - Neurological Neurological exam: Alert, Normal gait, Oriented X3. negative: Motor sensory deficit - Psychiatric Psychiatric exam: Flat affect - Skin Skin exam: Normal color. negative: Abrasion Type of lesion: negative: abrasion Course Vital Signs 07/21/19 02:29 Pulse Rate 95 H Respiratory 24 Rate Blood Pressure 140/124 Pulse Ox 97 - Reevaluation(s) Reevaluation #1: 07/21/19 02:50 EKG: Sinus tachycardia 108 Normal axis, normal intervals Nonspecific ST-T wave changes Reevaluation #2: 07/21/19 03:16 Laboratory studies were reviewed and appear grossly unremarkable for an acute process except for the following: Troponin 0.045 BNP 4662 WBC 13.9, 86% Neutrophils 07/21/19 03:22 CXR: Chronic changes, nothing acute Patient was updated on all results, will initiate transfer to [facility] for further cardiac evaluation. [facility] 1-call contacted for transfer. Reevaluation #3: 07/21/19 03:54 Case was discussed with Dr. Samuel, will accept transfer at this time. Medical Decision Making - Lab Data Result diagrams: 07/21/19 02:40 07/21/19 02:40 Disposition Disposition: Transfer Clinical Impression: Frequent falls, Physical deconditioning COPD (chronic obstructive pulmonary disease) Qualifiers: COPD type: unspecified COPD Qualified Code(s): J44.9 - Chronic obstructive pulmonary disease, unspecified Chronic back pain Qualifiers: Back pain location: back pain in unspecified location Back pain laterality: unspecified Qualified Code(s): M54.9 - Dorsalgia, unspecified Opiate dependence Qualifiers: Substance use status: uncomplicated Qualified Code(s): F11.20 - Opioid dependence, uncomplicated Disposition: Acute Care Hospital Transfer Transfer To: [facility] Reason For Transfer: Elevated troponin, BNP, cardiology consultation. Accepting Physician: Jimmie Time Discussed w/Accepting Physician: 03:53 Condition: (2) Stable Forms: Patient Portal Access Time of Disposition: 03:53 Quality - Quality Measures Quality Measures: N/A - Blood Pressure Screening Does Patient Have Any of the Following: Active Dx of HTN Blood Pressure Classification: Hypertensive Reading Systolic Measurement: 140 Diastolic Measurement: 124 Screening for High Blood Pressure: Patient Exclusion, Hx of HTN [G9744]
[2019-07-21 02:52] LABS: HEMATOCRIT 44.6 % (42.0-52.0); HEMOGLOBIN 13.6 gm/dl (14.0-18.0); MEAN CELL VOLUME 99.8 fl (81-97); MEAN CORPUSCULAR HEMOGLOBIN 30.4 pg (27-33); MEAN CORPUSCULAR HGB CONC 30.5 g/dl (32-36); MEAN PLATELET VOLUME 9.6 fl (7.4-10.4); PLATELET COUNT 207 K/uL (130-400); RED BLOOD COUNT 4.47 M/uL (4.40-5.70); RED CELL DISTRIBUTION WIDTH 16.9 % (11.5-14.5); WHITE BLOOD COUNT W/O DIFF 13.9 K/uL (4.2-12.2)
[2019-07-21 03:00] LABS: BLOOD UREA NITROGEN 16 mg/dL (8-23); EST GLOMERULAR FILTRATION RATE > 60 mL/min
[2019-07-21 03:01] LABS: TOTAL PROTEIN 6.6 g/dL (6.6-8.7)
[2019-07-21 03:03] LABS: GLUCOSE,RANDOM 107 mg/dL (74-109)
[2019-07-21 03:05] LABS: ALB/GLOB RATIO 1.3 (1.1-1.8); ALBUMIN 3.7 g/dL (4.0-5.0); ALT/SGPT 17 U/L (<41); AST/SGOT 20 U/L (10.0-50.0)
[2019-07-21 03:06] LABS: ALKALINE PHOSPHATASE 127 U/L (40-129)
[2019-07-21] MEDS ORDERED: ASPIRIN 81 MG CHEWABLE TABLET PO ONE (03:20)
[2019-07-21] MEDS ORDERED: FUROSEMIDE IV 20MG/2ML VIAL IVP ONE (03:21)
--- NOTE | 2019-07-21 03:23 | RADIOLOGY REPORT ---
EXAMINATION: Two View Chest Radiographs EXAM DATE: 07/21/2019 3:17 AM TECHNIQUE: Frontal and lateral views INDICATION: TOSHA COMPARISON: None ENCOUNTER: Not applicable FINDINGS: Left-sided pacing device. Heart size normal. Lungs are hyperinflated. No infiltrate or effusion IMPRESSION: Hyperinflated lungs. No acute process Dictated by: Jacki Young DO on 07/21/2019 3:21 AM. .
== END 2019-07-21 05:06 | disposition short-term general hospital (02) ==
LOC: ER 02:17
DX: R53.81 Other malaise (principal); R79.89 Other specified abnormal findings of blood chemistry; M54.9 Dorsalgia, unspecified; G89.29 Other chronic pain; J44.9 Chronic obstructive pulmonary disease, unspecified; R06.00 Dyspnea, unspecified; F11.20 Opioid dependence, uncomplicated; I50.9 Heart failure, unspecified; I10 Essential (primary) hypertension; Z99.81 Dependence on supplemental oxygen; Z91.81 History of falling; F17.210 Nicotine dependence, cigarettes, uncomplicated
CPT/HCPCS: 71046; 80053; 83880; 84484; 85027; 93005; 93010; 96374; 99285; J1940

== ENCOUNTER 2019-08-17 19:41 | Emergency (ER) | payer MEDICARE, MEDICAID ==
--- NOTE | 2019-08-17 20:07 | Emergency Department Record ---
History of Present Illness - General Stated complaint: RT RICCI BLISTER Time Seen by Provider: 08/17/19 19:50 Source: Patient Mode of Arrival: Ambulatory Limitations: No limitations - History of Present Illness Initial comments: 69 yo male presents to ED for evaluation of a blister to the RLE that the patient noticed this morning. Patient reports that he has not been taking his lasix as prescribed, but did take Lasix 20 mg yesterday and 40 mg today for his lower extremity swelling symptoms. Patient denies difficulty in breathing, fevers, chills, or redness to the lower extremity. Patient is concerned that the blister "will catch on something and break open". complaint: Other (Blister) Onset/Timin -: Days(s) Location: RLE Severity: Moderate Consistency: Constant Improves with: None Worsens with: None Context: None Associated symptoms: Denies other symptoms Treatments Prior to Arrival: Other (Lasix) - Related Data Allergies Allergy/AdvReac Type Severity Reaction Status Date / Time No Known Drug Allergies Allergy Verified 08/17/19 20:10 Review of Systems Constitutional: Denies: Chills, Fever, Malaise, Night sweats Eyes: Denies: Eye discharge, Eye pain ENT: Denies: Congestion, Ear pain, Epistaxis Respiratory: Denies: Cough, Dyspnea Cardiovascular: Denies: Chest pain, Dyspnea on exertion Endocrine: Denies: Fatigue, Heat or cold intolerance Gastrointestinal: Denies: Abdominal pain, Nausea, Vomiting Genitourinary: Denies: Incontinence, Retention Musculoskeletal: Denies: Arthralgia, Back pain Skin: Reports: Other (Blister RLE). Denies: Bruising, Change in color Neurological: Denies: Abnormal gait, Confusion, Headache, Seizure Psychiatric: Denies: Anxiety Hematological/Lymphatic: Denies: Anemia, Blood Clots Past Medical History - SOCIAL HISTORY Smoking Status: Current every day smoker Drug Use: None - RESPIRATORY Hx Respiratory Disorders: Yes Hx Bronchitis: Yes Hx COPD: Yes Hx Dyspnea: Yes Hx Sleep Apnea: Yes Comment:: wears O2 at al times - CARDIOVASCULAR Hx Cardio Disorders: Yes Hx CHF: Yes Hx Hypertension: Yes Comment:: high cholesterol - NEURO Hx Neuro Disorders: No - GI Hx GI Disorders: Yes Comment:: constipation-pain medication related - Hx Genitourinary Disorders: No - ENDOCRINE Hx Endocrine Disorders: No Hx Diabetes: No Hx Thyroid Disease: No - MUSCULOSKELETAL Hx Musculoskeletal Disorders: Yes Hx Arthritis: Yes - PSYCH Hx Psych Problems: Yes Hx Anxiety: Yes - HEMATOLOGY/ONCOLOGY Hx Hematology/Oncology Disorders: Yes Hx Blood Disorders: Yes Family Medical History Hx Alcohol Use: Mother Hx Diabetes: Father Physical Exam - General General Appearance: Alert, Oriented x3, Cooperative, Mild distress Limitations: No limitations - Head Head exam: Atraumatic, Normocephalic, Normal inspection Head exam detail: negative: Abrasion, Contusion, Law's sign, General tenderness, Hematoma, Laceration - Eye Eye exam: Normal appearance. negative: Conjunctival injection, Periorbital swelling, Periorbital tenderness, Scleral icterus - ENT Ear exam: negative: Auricular hematoma, Auricular trauma Nasal Exam: negative: Active bleeding, Discharge, Dried blood, Foreign body Mouth exam: negative: Drooling, Laceration, Muffled voice, Tongue elevation - Neck Neck exam: Other (Chronic kyphosis of the spine). negative: Meningismus, Tenderness - Respiratory Respiratory exam: Normal lung sounds bilaterally. negative: Rales, Respiratory distress, Rhonchi, Stridor - Cardiovascular Cardiovascular Exam: Regular rate, Normal rhythm, Normal heart sounds - GI/Abdominal GI/Abdominal exam: Soft. negative: Rebound, Rigid, Tenderness - Rectal Rectal exam: Deferred - exam: Deferred - Extremities Extremities exam: Pedal edema, Other (Chronci venous stasis changes to the lower extremities bilaterally, 2+ edema bilaterally, approximately 8.0 cm clear blister to the anterior right lower extremity on examination. No surrounding erythema is present on examination.). negative: Tenderness - Back Back exam: Denies: CVA tenderness (R), CVA tenderness (L) - Neurological Neurological exam: Alert, Normal gait, Oriented X3 - Psychiatric Psychiatric exam: Normal affect, Normal mood - Skin Skin exam: Normal color. negative: Abrasion Type of lesion: negative: abrasion Course - Reevaluation(s) Reevaluation #1: 08/17/19 20:12 Following discussion with the patient re: leaving blister intact, sterile, and rupture with a chance of infection, patient would prefer incision and drainage in the ED. Procedure Note: Blister was prepped in sterile fashion using betadine solution, 0.5 cm incision was made using #11 blade with removal of approximately 80% of the clear fluid contained in the blister. Patient tolerated the procedure well without complications. Patient was instructed to return to the ED for any redness, swelling, fevers, or worsening of his symptoms. Patient appears stable for discharge following sterile dressing application by nursing staff. Disposition Disposition: Discharge Clinical Impression: [place] Disposition: Home, Self-Care Condition: (2) Stable Instructions: Blister (ED) Additional Instructions: Return to ED if your symptoms worsen or if you have any concerns. Follow-up with your family doctor in 3-5 days as directed. Forms: Patient Portal Access Time of Disposition: 20:06 Quality - Quality Measures Quality Measures: N/A - Blood Pressure Screening Does Patient Have Any of the Following: No Blood Pressure Classification: Normal BP Reading Systolic Measurement: 116 Diastolic Measurement: 69 Screening for High Blood Pressure: < Normal BP, F/U Not Required > [G8783]
== END 2019-08-17 20:29 | disposition home or self-care (01) ==
LOC: ER 19:41
DX: S80.821A Blister (nonthermal), right lower leg, initial encounter (principal); R23.8 Other skin changes; R60.0 Localized edema; I50.9 Heart failure, unspecified; J44.9 Chronic obstructive pulmonary disease, unspecified; I10 Essential (primary) hypertension; Z99.81 Dependence on supplemental oxygen; F17.210 Nicotine dependence, cigarettes, uncomplicated; X58.XXXA Exposure to other specified factors, initial encounter
CPT/HCPCS: 10140; 99284

== ENCOUNTER 2019-10-01 03:36 | Emergency (ER) | payer MEDICARE, MEDICAID ==
--- NOTE | 2019-10-01 03:52 | Emergency Department Record ---
History of Present Illness - General Chief complaint: Eye Problem Stated complaint: WATER BLISTER Time Seen by Provider: 10/01/19 03:50 Source: Patient Mode of Arrival: Ambulatory Limitations: No limitations - History of Present Illness Initial comments: 69 yo male presents to ED for evaluation of edema to the right lower eyelid x 1 day. Patient reports that his PCP started Doxycycline for his swelling in case of infection, patient also reports that he has been taking Lasix as directed. Patient denies redness, fevers, chills, or pain with movement of the eyes on examination. MD chief complaint: Other Onset/Timin -: Days(s) Location: Right eye If Injury: None Severity: Moderate Consistency: Constant Associated Symptoms: None Treatments Prior to Arrival: None - Related Data Patient Tetanus UTD (within 5 yrs): Yes Home Medications Medication Instructions Recorded Confirmed Last Taken Doxycycline Hyclate 20 mg PO BID 10/01/19 10/01/19 10/01/19 Allergies Allergy/AdvReac Type Severity Reaction Status Date / Time No Known Drug Allergies Allergy Verified 10/01/19 03:44 Travel Screening - Travel/Exposure Within Last 30 Days Have you traveled within the last 30 days?: No - Travel/Exposure Within Last Year Have you traveled outside the [place] in the last year?: No - Additonal Travel Details Have you been exposed to anyone with a communicable illness?: No - Travel Symptoms Symptom Screening: None Review of Systems Constitutional: Denies: Chills, Fever, Malaise, Night sweats Eyes: Denies: Eye discharge, Eye pain ENT: Denies: Congestion, Ear pain, Epistaxis Respiratory: Denies: Cough, Dyspnea Cardiovascular: Denies: Chest pain, Dyspnea on exertion Endocrine: Denies: Fatigue, Heat or cold intolerance Gastrointestinal: Denies: Abdominal pain, Nausea, Vomiting Genitourinary: Denies: Incontinence, Retention Musculoskeletal: Denies: Arthralgia, Back pain Skin: Denies: Bruising, Change in color Neurological: Denies: Abnormal gait, Confusion, Headache, Seizure Psychiatric: Denies: Anxiety Hematological/Lymphatic: Denies: Anemia, Blood Clots Past Medical History - SOCIAL HISTORY Smoking Status: Current every day smoker Alcohol Use: None Drug Use: None - RESPIRATORY Hx Respiratory Disorders: Yes Hx Bronchitis: Yes Hx COPD: Yes Hx Dyspnea: Yes Hx Sleep Apnea: Yes Comment:: wears O2 at all times - CARDIOVASCULAR Hx Cardio Disorders: Yes Hx CHF: Yes Hx Hypertension: Yes Comment:: high cholesterol - NEURO Hx Neuro Disorders: No - GI Hx GI Disorders: Yes Comment:: constipation-pain medication related - Hx Genitourinary Disorders: No - ENDOCRINE Hx Endocrine Disorders: No Hx Diabetes: No Hx Thyroid Disease: No - MUSCULOSKELETAL Hx Musculoskeletal Disorders: Yes Hx Arthritis: Yes - PSYCH Hx Psych Problems: Yes Hx Anxiety: Yes - HEMATOLOGY/ONCOLOGY Hx Hematology/Oncology Disorders: Yes Hx Blood Disorders: Yes Family Medical History Any Significant Family History?: Yes Hx Alcohol Use: Mother Hx Diabetes: Father Physical Exam - General General Appearance: Alert, Oriented x3, Cooperative, No acute distress Limitations: No limitations - Head Head exam: Atraumatic, Normocephalic, Normal inspection Head exam detail: negative: Abrasion, Contusion, Law's sign, General tenderness, Hematoma, Laceration - Eye Eye exam: Periorbital swelling, Other (Mild edema to the right infra-orbiatl region on examnation, no erythema is presents to suggest bobby-orbital cellulit is.). negative: Conjunctival injection, Periorbital tenderness, Scleral icterus - ENT Ear exam: negative: Auricular hematoma, Auricular trauma Nasal Exam: negative: Active bleeding, Discharge, Dried blood, Foreign body Mouth exam: negative: Drooling, Laceration, Muffled voice, Tongue elevation - Neck Neck exam: Normal inspection. negative: Meningismus, Tenderness - Respiratory Respiratory exam: Normal lung sounds bilaterally. negative: Rales, Respiratory distress, Rhonchi, Stridor - Cardiovascular Cardiovascular Exam: Regular rate, Normal rhythm, Normal heart sounds - GI/Abdominal GI/Abdominal exam: Soft. negative: Rebound, Rigid, Tenderness - Rectal Rectal exam: Deferred - exam: Deferred - Extremities Extremities exam: Other (Wraps applied to the lower extremity bilaterally). negative: Calf tenderness, Tenderness - Back Back exam: Denies: CVA tenderness (R), CVA tenderness (L) - Neurological Neurological exam: Alert, Normal gait, Oriented X3 - Psychiatric Psychiatric exam: Normal affect, Normal mood - Skin Skin exam: Normal color. negative: Abrasion Type of lesion: negative: abrasion Course Vital Signs 10/01/19 03:43 Temperature 97.8 F Pulse Rate [ 109 H Pulse Ox Probe] Respiratory 24 Rate Blood Pressure 137/79 [Left Arm] Pulse Ox 94 L - Reevaluation(s) Reevaluation #1: 10/01/19 03:56 Patient was seen and examined No evidence for cellulitis or infection are present on examination Patient is taking Doxycycline and Lasix at this time. Patient was instructed to call his PCP for further recommendations. Disposition Disposition: Discharge Clinical Impression: Eyelid edema Qualifiers: Laterality: right Qualified Code(s): H02.843 - Edema of right eye, unspecified eyelid Disposition: Home, Self-Care Condition: (2) Stable Instructions: Edema (ED) Additional Instructions: Return to ED if your symptoms worsen or if you have any concerns. Continue Doxycycline and Lasix as directed. Follow-up with your family doctor in 3-5 days as directed. Forms: Patient Portal Access Time of Disposition: 03:51 Quality - Quality Measures Quality Measures: N/A - Blood Pressure Screening Does Patient Have Any of the Following: Active Dx of HTN Blood Pressure Classification: Pre-Hypertensive BP Reading Systolic Measurement: 137 Diastolic Measurement: 79 Screening for High Blood Pressure: Patient Exclusion, Hx of HTN [G9744]
== END 2019-10-01 03:59 | disposition home or self-care (01) ==
LOC: ER 03:36
DX: H02.842 Edema of right lower eyelid (principal); I10 Essential (primary) hypertension; I50.9 Heart failure, unspecified; J44.9 Chronic obstructive pulmonary disease, unspecified; F17.210 Nicotine dependence, cigarettes, uncomplicated; Z99.81 Dependence on supplemental oxygen
CPT/HCPCS: 99283